=== PATIENT | female | born 1955 | race Caucasian/White ===

== ENCOUNTER → 2018-06-17 | Outpatient (CLI) | payer MEDICARE ==
[~2018-06-17] MED LIST: REGADENOSON 0.4 MG/5 ML SYRINGE IV ONE
--- NOTE | 2018-06-17 10:37 | EST ---
EXERCISE STRESS DATE OF SERVICE: 06/17/2018 AGE: 62 SEX: Female HT: 5'1" WT: 193 pounds PROTOCOL: Lexiscan Cardiolite STAGE: DURATION OF EXERCISE: HEART RATE REST: 52 BLOOD PRESSURE REST: 124/94 MAXIMUM HEART RATE ACHIEVED: 68 MAXIMUM BLOOD PRESSURE: 145/65 85% MPHR: 134 100% MPHR: 158 METS: INDICATION: Abnormal EKG. CLINICAL INFORMATION: Baseline EKG shows sinus rhythm, normal axis, normal intervals. Patient was given intravenous Lexiscan as per protocol. Did not have chest pain or diagnostic ST-segment depression. CONCLUSIONS: 1. Negative stress test by EKG criteria. 2. Cardiolite portion of the stress test will be reported separately. MMODL / IJN: [id number] /
--- NOTE | 2018-06-17 10:50 | NM ---
EXAMINATION TYPE: NM stress lexiscan cardiolite DATE OF EXAM: 06/17/2018 COMPARISON: NONE HISTORY: Coronary artery disease per order. History of hypertension, asthma, family history of heart attack, and prior heart attack presents with difficulty breathing and abnormal EKG per patient. TECHNIQUE: After the intravenous administration of 9.8 mCi Tc 99m Sestamibi - Cardiolite resting SPE CT images acquired 45 minutes post injection. The patient received 0.4mg Lexiscan, 25.5 mCi Tc 99m Sestamibi - Stress images obtained [address] injection FINDINGS: Review of stress and rest SPECT images demonstrates no distinct perfusion abnormality. Gated analysi s shows normal wall motion with an estimated left ventricular ejection fraction of 68 %. IMPRESSION: No scintigraphic evidence for reversible ischemia.
== END | disposition home or self-care (01) ==
LOC: RADNMMAIN 07:42
PROVIDERS: ATTEND Family Medicine
DX: I25.10 Atherosclerotic heart disease of native coronary artery without angina pectoris (principal)
CPT/HCPCS: 93017; 78452; A9500; J2785

== ENCOUNTER → 2019-01-30 | Outpatient (CLI) | payer MEDICARE ==
--- NOTE | 2019-01-30 11:55 | BD ---
EXAMINATION TYPE: Axial Bone Density DATE OF EXAM: 01/30/2019 COMPARISON: NONE CLINICAL HISTORY: 63 YR OLD FEMALE....ICD-10 CODE: M89.9 DISORDER OF BONE Height: 60.4 Weight: 193 FRAX RISK QUESTIONS: Glucocorticoids (More than 3mos): YES (Ex: prednisone, prednisolone, methylprednisolone, dexamethasone, and hydrocortisone). Rheumatoid Arthritis: YES RISK FACTORS HISTORY OF: HX OF ANKLE FX A TEEN Family History of Osteoporosis: UNKNOWN Active: NO...BILAT TOTAL KNEE REPLACEMENTS, USES CANE Postmenopausal woman: YES AT AGE 53 Lost more than 2 inches in height since high school: YES Frequent falls: UNSTEADY, USES CANE MEDICATIONS: Prednisone or other steroids: INHALER ALBUTEROL PRN, STEROIDS ON AND OFF FOR LUNGS AND ALLERGIES How Long: MANY YRS Thyroid Medications: YES, GENERIC SYNTHROID, FOR 20+ YRS Additional Medications: BP MEDS, ANTIDEPRESSANTS AND ANTI-ANXIETY MEDS SEVERAL, REFLUX MEDS NEEDED , VIT D, PAIN MEDS AND NSAIDS Additional History: BILAT TKRS, OSTEO AND RHEUMATOID ARTHRITIS, HYPERTENSION, REFLUX, ASTHMA AND ALL ERGIES EXAM MEASUREMENTS: Bone mineral densitometry was performed using the Unsilo System. Bone mineral density as measured about the Lumbar spine is: ----- L1-L4(G/cm2): 1.597 T Score Values are as follows: ----- L1: 2.6 ----- L2: 3.4 ----- L3: 4.4 ----- L4: 3.2 ----- L1-L4: 3.5 Bone mineral density THIS IS HER FIRST BONE DENSITY ......BASELINE STUDY Bone mineral density about the R hip (g/cm2): 0.938 Bone mineral density about the L hip (g/cm2): 0.830 T Score values are as follows: -----R Neck: -0.6 -----L Neck: -1.9 -----R Total: -0.6 -----L Total: -1.4 Bone mineral density BASELINE STUDY FOR HER FRAX%s: THERE IS A 18.3% CHANCE FOR A MAJOR OSTEOPOROTIC FX AND A 2.8% FOR HIP....PROBABILITY OF FX IN 10 YRS TIME IMPRESSION: Osteopenia (T Score between -2.5 and -1) at femoral neck level in both hips. There is slightly increased risk of fracture and the patient may be considered for treatment. Re-Screen 2-5 years. NOTE: T-SCORE=SD OF THE YOUNG ADULT MEAN.
--- NOTE | 2019-02-05 13:20 | MM ---
Reason for exam: screening (asymptomatic). Last mammogram was performed 1 year and 2 months ago. History: Patient is postmenopausal. Family history of breast cancer in mother at age 69. Breast lifts of both breasts, 2011. Took estrogen for 1 year beginning at age 61. Physical Findings: A clinical breast exam by your physician is recommended on an annual basis and results should be correlated with mammographic findings. MG 3D Screening Mammo W/Cad Bilateral CC and MLO view(s) were taken. Prior study comparison: November 29, 2017, mammogram, performed at [place]. The breast tissue is heterogeneously dense. This may lower the sensitivity of mammography. There is no discrete abnormality. No significant changes when compared with prior studies. ASSESSMENT: Benign, BI-RAD 2 RECOMMENDATION: Routine screening mammogram of both breasts in 1 year.
== END | disposition home or self-care (01) ==
LOC: RADMAMWWP 09:53
PROVIDERS: ATTEND Family Medicine
DX: Z12.31 Encounter for screening mammogram for malignant neoplasm of breast (principal); M85.852 Other specified disorders of bone density and structure, left thigh; Z80.3 Family history of malignant neoplasm of breast
CPT/HCPCS: 77063; 77067; 77080

== ENCOUNTER 2019-10-09 16:54 | Emergency (ER) | payer MEDICARE ==
[2019-10-09 17:01] VITALS: RESP 18
--- NOTE | 2019-10-09 17:08 | ED ---
Back Pain HPI - General Chief Complaint: Back Pain/Injury Stated Complaint: back/leg pain Time Seen by Provider: 10/09/19 17:04 Source: patient, RN notes reviewed, old records reviewed Limitations: no limitations - History of Present Illness Initial Comments: This is a 63-year-old female the ER for evaluation. Patient presents today for evaluation regards to back pain history of back pain history of spinal stenosis MD Complaint: back pain -: days(s) Similar Symptoms Previously: Yes Place: home Radiation: none Severity: moderate Severity scale (1-10): 4 Quality: sharp, aching Consistency: constant Improves With: immobilization Worsens With: movement, sitting upright, walking Context: unknown Associated Symptoms: denies other symptoms - Related Data Allergies Allergy/AdvReac Type Severity Reaction Status Date / Time Penicillins Allergy Unknown Verified 10/09/19 16:56 Review of Systems ROS Statement: Those systems with pertinent positive or pertinent negative responses have been documented in the HPI. ROS Other: All systems not noted in ROS Statement are negative. Past Medical History Past Medical History: Diabetes Mellitus, Hyperlipidemia, Hypertension, Thyroid Disorder Additional Past Medical History / Comment(s): MIGRAINES History of Any Multi-Drug Resistant Organisms: None Reported Past Surgical History: Bariatric Surgery Additional Past Surgical History / Comment(s): GASTRIC BYPASS 2005 Past Psychological History: Anxiety, Depression Smoking Status: Former smoker Past Alcohol Use History: None Reported Past Drug Use History: None Reported General Exam Limitations: no limitations General appearance: alert, in no apparent distress Head exam: Present: atraumatic, normocephalic, normal inspection Eye exam: Present: normal appearance, PERRL, EOMI. Absent: scleral icterus, conjunctival injection, periorbital swelling ENT exam: Present: normal exam, mucous membranes moist Neck exam: Present: normal inspection. Absent: tenderness, meningismus, lymphadenopathy Respiratory exam: Present: normal lung sounds bilaterally. Absent: respiratory distress, wheezes, rales, rhonchi, stridor Cardiovascular Exam: Present: regular rate, normal rhythm, normal heart sounds. Absent: systolic murmur, diastolic murmur, rubs, gallop, clicks GI/Abdominal exam: Present: soft, normal bowel sounds. Absent: distended, tenderness, guarding, rebound, rigid Extremities exam: Present: normal inspection, full ROM, normal capillary refill. Absent: tenderness, pedal edema, joint swelling, calf tenderness Back exam: Present: normal inspection Neurological exam: Present: alert, oriented X3, CN II-XII intact Psychiatric exam: Present: normal affect, normal mood Skin exam: Present: warm, dry, intact, normal color. Absent: rash Course Vital Signs 10/09/19 16:56 Temperature 97.9 F Pulse Rate 78 Respiratory 18 Rate Blood Pressure 144/75 O2 Sat by Pulse 96 Oximetry - Reevaluation(s) Reevaluation #1: 10/09/19 20:04 Spoke with patient medical record is reviewed and patient symptoms are improved Reevaluation #2: 10/09/19 20:[address] Le who was requesting consult for anesthesia Reevaluation #3: 10/09/19 20:05 Spoke with the anesthesiologist Dr. Camejo who did evaluate patient in the ER will set up patient for outpatient epidural Medical Decision Making - Medical Decision Making 63 female the ER for evaluation presents today for evaluation regards to back pain acute on chronic back pain. Patient will follow-up for epidural pain is currently controlled and can be discharged home - Radiology Data Radiology results: report reviewed (CT LS spine is negative for traumatic injury or acute disease), image reviewed Disposition Clinical Impression: Spinal stenosis, Sciatica Disposition: HOME SELF-CARE Condition: Good Instructions (If sedation given, give patient instructions): Acute Low Back Pain (ED) Is patient prescribed a controlled substance at d/c from ED?: No Referrals: Tommy Andrade MD [Primary Care Provider] - 1-2 days
[2019-10-09] MEDS ORDERED: HYDROmorphone 1 MG/ML 1 ML SYRINGE IM STA (17:33)
[2019-10-09] MEDS ORDERED: DEXAMETHASONE 4 MG TAB PO STA (17:33)
[2019-10-09] MEDS ORDERED: KETOROLAC 60 MG/2 ML VIAL IM STA (17:33)
--- NOTE | 2019-10-09 18:40 | CT ---
EXAMINATION TYPE: CT lumbar spine wo con DATE OF EXAM: 10/09/2019 6:25 PM COMPARISON: None HISTORY: Right sided lower back pain radiating down right leg. CT DLP: 1430.6 mGycm Automated exposure control for dose reduction was used. Unenhanced CT of the lumbar spine was performed. Bone and soft tissue window settings are submitted as well as coronal and sagittal reconstructions. There is 7 mm anterior subluxation of L4 in relation L5. There is disc space narrowing from L1 to L5. There is no spondylolysis. There is some hypertrophic facet arthropathy from L3 to S1. There is no c ompression fracture. There is no lumbar paraspinal mass. There is posterior concentric disc herniatio n at L2-3 L3-4 with resultant neural foraminal impingement. There is moderate spinal stenosis at L3-4 due to facet arthropathy and posterior disc herniation. There is mild spinal stenosis at L4-5. I see no focal bone destruction. IMPRESSION: Multilevel spondylotic changes. Degenerative first-degree L4-5 spondylolisthesis. There is spinal hao nosis at L3-4 and L4-5. Multilevel posterior lumbar disc herniation.
--- NOTE | 2019-10-09 18:45 | CT ---
EXAMINATION TYPE: CT sacrum wo con DATE OF EXAM: 10/09/2019 COMPARISON: None HISTORY: Right sided lower back pain radiating down right leg. CT DLP: 1207 mGycm Automated exposure control for dose reduction was used. FINDINGS: Sacral segments have normal alignment. Coccyx is intact. I see no fracture. Sacroiliac joints are int act. There is no focal bone destruction. Presacral soft tissues appear normal. There is no pathologic fluid collection. IMPRESSION: NEGATIVE CT SCAN OF THE SACRUM AND COCCYX.
[2019-10-09 20:21] VITALS: BP 156/72; PULSE 62; TEMP 98.2
--- NOTE | 2019-10-09 22:19 | P.PAINCN ---
History of Present Illness - Reason for Consult Consult date: 10/09/19 Back pain Requesting physician: Joaquín Blanco - History of Present Illness 6-year-old female who presents to the [facility] emergency department with chief complaint of low back pain and leg pain in her right. She recently moved to the [facility] in her new primary care physician is Tommy Andrade. She had a history of low back pain has been ongoing for over 5 years. She's had epidural steroid injections in the past last was 3.5 years ago. She had followed up with a spine surgeon who recommended surgery however she decided against it at the time. She was diagnosed with spinal stenosis. On presentation to the ER her pain was at greater than 10 out of 10 in severity. She initially went to her primary care office and was given a shot of IM corticosteroid which did not help. She is given a prescription for Shongaloo to be taken as needed as well as Flexeril to be taken as needed. Pain became unbearable which prompted her to present to the ED. In the emergency department she is given another IM dose of Kenalog. She's sitting comfortably in the chair but does complain of radicular pain into her right buttock and the lateral aspect of her leg. She denies any numbness or tingling in her right lower shoddy digits but does have persistent numbness and tingling in her left lower extremity digits. She denies any bowel or bladder dysfunction, saddle anesthesia. She does promote some weakness in her right lower extremity. Review of Systems Constitutional: Reports weakness Ears, nose, mouth and throat: Reports as per HPI Cardiovascular: Reports as per HPI Respiratory: Reports as per HPI Gastrointestinal: Reports as per HPI Musculoskeletal: Reports as per HPI Neurological: Reports as per HPI Psychiatric: Reports as per HPI Hematologic/Lymphatic: Reports as per HPI Past Medical History Past Medical History: Diabetes Mellitus, Hyperlipidemia, Hypertension, Thyroid Disorder Additional Past Medical History / Comment(s): MIGRAINES History of Any Multi-Drug Resistant Organisms: None Reported Past Surgical History: Bariatric Surgery Additional Past Surgical History / Comment(s): GASTRIC BYPASS 2004 Past Psychological History: Anxiety, Depression Smoking Status: Former smoker Past Alcohol Use History: None Reported Past Drug Use History: None Reported Medications and Allergies Allergies Allergy/AdvReac Type Severity Reaction Status Date / Time Penicillins Allergy Unknown Verified 10/09/19 16:56 Physical Exam Vitals: Vital Signs Temp Pulse Resp BP Pulse Ox 10/09/19 20:20 98.2 F 62 18 156/72 96 10/09/19 16:56 97.9 F 78 18 144/75 96 Intake and Output 10/09/19 10/09/19 10/09/19 06:59 14:59 22:59 Other: Weight 86.183 kg - Constitutional General appearance: obese - EENT Eyes: PERRLA ENT: normal oropharynx - Musculoskeletal 1/2 patellar reflex on right. 4+ quadricep extension on right Musculoskeletal: gait normal, generalized weakness, right sided weakness - Psychiatric Psychiatric: A&O x's 3, appropriate affect, intact judgment & insight Results Comments: CT lumbar spine without contrast: 1. 7 mm anterior subluxation of L4 over L5. 2. Facet arthropathy noted from L3 to S1 bilaterally. 3. Moderate spinal stenosis at L3-L4 secondary to facet arthropathy and a posterior disc herniation. 4. Mild spinal stenosis at L4-5. Assessment and Plan Assessment: Assessment: 1. Lumbar spinal stenosis 2. Lumbar spondylolisthesis L4-L5 3. Facet arthropathy Plan: 1. Patient was given a prescription of Shongaloo and Flexeril from her PCP. She's feeling better after getting her second IM dose of Kenalog. She'll continue the medication as an outpatient. 2. We'll have her scheduled for lumbar epidural steroid injection targeting the right L3-L4 interspace. 3. A prescription for an MRI lumbar spine without contrast was given to the patient to be completed. 4. Referral to orthopedic diabetes solutions specialist for evaluation and surgical recommendations. Thank you for the consult. We'll have the patient scheduled for procedure early next week. PQRS Measure Charge Sheet PQRS Narrative: Smoking Status Former smoker Blood Pressure 156/72 Pain Intensity 2 Pain Scale Used Numeric (1 - 10) Scale Used Numeric (1 - 10)
== END 2019-10-09 20:20 | disposition home or self-care (01) ==
LOC: EC 16:54
DX: M48.061 Spinal stenosis, lumbar region without neurogenic claudication (principal); M54.30 Sciatica, unspecified side; Z87.891 Personal history of nicotine dependence; Z88.0 Allergy status to penicillin
CPT/HCPCS: 72131; 72192; 99284; 96372 ×2; J8540; J1885; J1170

== ENCOUNTER 2019-10-15 09:53 | Day surgery (SDC) | payer MEDICARE ==
[2019-10-15 10:30] VITALS: TEMP 97.2
[2019-10-15] MEDS ORDERED: LACTATED RINGERS 1,000 ML IV SCH (11:04)
--- NOTE | 2019-10-15 11:09 | P.PCN ---
Date of Procedure: 10/15/19 Procedure(s) Performed: PREOPERATIVE DIAGNOSIS: 1- Lumbar radiculopathy, Lumbar Degenerative Disc Diseases 2-Lumbar spondylosis with Facet arthropathy without myelopathy POSTOPERATIVE DIAGNOSIS: 1-Lumber Degenerative Disc Diseases 2-Lumbar spondylosis with Facet arthropathy without myelopathy PROCEDURE 1. Lumbar epidural steroid injection under fluoroscopic guidance at the L3-4 level using a right paramedian approach 2. Lumbar epidurogram. ANESTHESIA: Local with 1% lidocaine 3 ml,no IV sedation was used Fluoroscopy was used for the procedure and images were saved in the radiology portion of the chart. EBL: Minimal PROCEDURE INDICATION: The patient with low back pain and radiculitis symptoms unresponsive to conservative treatment. Fluoroscopy was used to optimize visualization of the needle placement and to maximize safety. PROCEDURE DESCRIPTION / TECHNIQUE: The patient was seen and identified in the preoperative area. Risks, benefits, complications including but not limited to infections ,bleeding ,allergic reaction to the medications ,nerve damage and incomplete pain releif , and alternatives were discussed with the patient. The patient agreed to proceed with the procedure and signed the consent.= Patient was taken to the OR and time out was completed. The patient was placed in the prone position on procedure table and a pillow was placed under the abdomen to reduce lumbar lordosis. The lumbosacral area was prepped and draped in the usual sterile fashion. Vitals were closely monitored during the procedure. Using anterior-posterior fluoroscopy, the L3-4 interlaminar space was identified and the skin over this site was marked and then infiltrated with 1% lidocaine subcutaneously. Subsequently, an 18-gauge 5" Tuohy epidural needle was inserted and advanced toward the epidural space using the loss of resistance technique and guided by AP and lateral/ oblique fluoroscopy. The correct needle position in the epidural space was verified with the injection of 2 mL of the water soluble contrast dye Isovue 200 contrast under live fluoroscopy, observing an excellent epidurogram. Then, after negative aspiration for blood and CSF and in the absence of paresthesias, a 5 ml mixture containing 80 mg of Depo-medrol , 3 ml of preservative free Normal Saline, and 1 ml of preservative free lidocaine 1% solution was injected and a washout epidurogram was seen. Needle was withdrawn intact, skin was cleansed, and bandages were applied. COMPLICATIONS: None DISPOSITION / PLANS: The patient was placed in a supine position and transferred to the recovery area in a stable condition for observation. There was no evidence of lower extremity motor or sensory deficit after the procedure. Patient was discharged from the recovery room after meeting discharge criteria. Home discharge instructions were given to the patient by the staff. The patient will schedule a follow up in the clinic in 2-4 weeks.
[2019-10-15 11:14] VITALS: RESP 18
--- NOTE | 2019-10-15 11:15 | FL ---
EXAMINATION TYPE: FL guided pain mgmt statistic DATE OF EXAM: 10/15/2019 CLINICAL HISTORY: Low back pain. TECHNIQUE: Fluoroscopy. COMPARISON: None. FINDINGS: Fluoroscopic guidance was provided during pain relief procedure performed by Dr. Valencia . A total of 8 seconds of fluoroscopic time was utilized during the procedure and 3 spot images are acqui red. Images acquired shows needle localization at roughly L3 level. IMPRESSION: As Above.
[2019-10-15 11:26] VITALS: BP 127/78; PULSE 66
== END 2019-10-15 11:42 | disposition home or self-care (01) ==
LOC: ORPAIN 09:53
PROVIDERS: ATTEND Anesthesiology
DX: M47.26 Other spondylosis with radiculopathy, lumbar region (principal); M51.16 Intervertebral disc disorders with radiculopathy, lumbar region; M48.061 Spinal stenosis, lumbar region without neurogenic claudication; M43.16 Spondylolisthesis, lumbar region; E11.9 Type 2 diabetes mellitus without complications; E78.5 Hyperlipidemia, unspecified; I10 Essential (primary) hypertension; G43.909 Migraine, unspecified, not intractable, without status migrainosus; F41.9 Anxiety disorder, unspecified; F32.9 Major depressive disorder, single episode, unspecified; Z98.84 Bariatric surgery status; Z88.0 Allergy status to penicillin; Z87.891 Personal history of nicotine dependence
CPT/HCPCS: 62323; J1030; Q9966

== ENCOUNTER → 2019-10-25 | Outpatient (CLI) | payer MEDICARE ==
--- NOTE | 2019-10-27 09:38 | MR ---
EXAMINATION TYPE: MR lumbar spine wo/w con DATE OF EXAM: 10/25/2019 COMPARISON: CT 10/09/2019 HISTORY: lumbar neuritis TECHNIQUE: T1 and T2 axial and sagittal images of the lumbar spine are submitted. FINDINGS: There is no abnormal signal seen within the visualized spinal cord or paraspinal soft tissu es. There is severe degenerative disc disease at all levels with hypertrophic spurring. Large vertebr al body hemangioma of T12. At T12-L1 there is degenerative disc disease. There is no canal stenosis or foraminal encroachment. M ild circumferential disc bulging. At L1-2 there is severe degenerative disc disease with posterior hypertrophic changes. Diffuse circum ferential disc bulging results in mild compression of the thecal sac and mild to moderate bilateral f oraminal encroachment greater on the right and mild canal stenosis. At L2-3 there is diffuse disc bulging with hypertrophic change of the facets and ligamentum flavum re sults in moderate canal stenosis and bilateral foraminal encroachment. At L3-4 there is diffuse disc bulging with hypertrophic change of the facets and ligamentum flavum re sult in moderate to severe canal stenosis and severe left-sided foraminal encroachment and moderate t o severe right foraminal encroachment. At L4-5 there is advanced facet arthropathy with grade 1 anterolisthesis. Broad-based central disc bu lging or protrusion results in severe canal stenosis and bilateral foraminal encroachment. At L5-S1 there is advanced facet arthropathy with circumferential disc bulging but no canal stenosis. Mild to moderate foraminal encroachment. IMPRESSION: 1. Severe degenerative disc disease at all levels with multilevel canal stenosis and significant fora raymond encroachment as discussed above. Most marked findings at L4-L5 with severe canal stenosis, bila teral foraminal encroachment and grade 1 anterolisthesis.
== END | disposition home or self-care (01) ==
LOC: RADMRIMAIN 14:42
PROVIDERS: ATTEND Family Medicine
DX: M48.061 Spinal stenosis, lumbar region without neurogenic claudication (principal); M51.16 Intervertebral disc disorders with radiculopathy, lumbar region; M43.16 Spondylolisthesis, lumbar region
CPT/HCPCS: 72158; A9585

== ENCOUNTER → 2019-12-02 | Outpatient (CLI) | payer MEDICARE ==
[2019-12-02 12:44] VITALS: BP 116/79; PULSE 66; RESP 18
--- NOTE | 2019-12-03 06:08 | P.PAINPG ---
Subjective Progress Note Date: 12/02/19 This is a follow-up visit for this 64 years old female, with a chronic history of severe low back pain patient diagnosed with lumbar radiculopathy lumbar spondylosis and lumbar facet arthropathy and lumbar degenerative disc disease, patient had lumbar epidural steroid injection done a few weeks ago and she had excellent pain relief, now the pain comes back and she is having low back pain with radiation to the lower extremity bilaterally, the pain increases with any activity she denies any motor or sensory deficit, she denies any fever or night sweats Objective - Vital Signs Vital signs: Vital Signs Temp Pulse 66 12/02/19 12:38 Resp 18 12/02/19 12:38 BP 116/79 12/02/19 12:38 Pulse Ox 99 12/02/19 12:38 - Exam Physical Examinations : -Constitutiona : Cooperative , not in acute distress . -HEENT : nech : supple , no Lymphadenopathy , normal thyroid size . : eyes : no ptosis , no icterus, no photophobia . - neurologic : Cranial nerve II to XII intact , no focal neurological deffecit . -psychatric : alert , oriented X 3 , appropriate affect , intact judgment and insight . -Lymphatic : no Lymphadenopathy . - musculoskeltal Lumber spine moter stegnth lower extremities ,thigh and legs 5/5 Right side , 5/5 Left side deep tendon reflexes : normal Knee Jerk , normal ankle Jerk lumber facet Loading Test =positive Right , positive Left Range of motion of the lumbar spine Flexion 30 degrees, extension 10 degrees strait leg raising test = positive at 30 degree Fabere test= positive Right , and positive LT .t . Assessment and Plan Plan: Assessment and plan= lumbar radiculopathy. Lumbar degenerative disc disease. Lumbar spondylosis with lumbar facet arthropathy. She'll be good candidate to have second lumbar epidural steroid injections at the L3 4 levels Time with Patient: Less than 30 PQRS Measure Charge Sheet Measure #130: Documentation of Current Meds in Medical Chart: Patient's medications documented in chart Measure #226: Tobacco Use: Screen & Cessation Intervention: Pt not a tobacco user Measure #111: Pneumonia Vaccination: Pneumococcal vaccine administered or previously received Measure #47: Advance Care Plan: Advance care planning discussed & documented, plan or surrogate given Measure #412: Opioid Treatment Agreement: No documentation of signed opioid treatment agreement Measure #408: Opioid Therapy Follow-up Evaluation: Patient had NO f/u eval minimum every 3 months during opioid therapy Measure #317: Preventitive Care & Scrn High Bld Press & F/U: Normal blood pressure, f/u not required Measure #128: Body Mass Index (BMI) Screening & Follow-up: BMI documented ABOVE normal parameters - f/u documented Measure #131: Pain Assessment & Follow-up: Pain positive & plan documented, Follow-up scheduled Measure #431: Unhealthy Alcohol Use Preventative Care & Scrn: Patient not identified as an unhealthy alcohol user PQRS Narrative: Smoking Status Former smoker Blood Pressure 116/79 Pain Intensity [Left Leg] 2 Pain Intensity [Lower Back] 3 Scale Used Numeric (1 - 10) Hx Alcohol Use (MH) No Home Medications: Ambulatory Orders ALPRAZolam [Xanax] 0.5 mg PO DAILY PRN 10/15/19 Aspirin 81 mg PO DAILY 10/15/19 Atenolol 25 mg PO BID 10/15/19 DULoxetine HCL [Cymbalta] 60 mg PO DAILY 10/15/19 Furosemide [Lasix] 20 mg PO DAILY 10/15/19 Gabapentin 600 mg PO BID 10/15/19 Ibuprofen [Motrin] 600 mg PO BID 10/15/19 Levothyroxine Sodium 150 mcg PO DAILY 10/15/19 Topiramate [Topamax] 25 mg PO DAILY 10/15/19 buPROPion [Wellbutrin] 300 mg PO DAILY 10/15/19 Acetaminophen-Codeine 300-30mg [Tylenol w/codeine #3] 1 tab PO TID 11/26/19 Albuterol Inhaler [Ventolin Hfa Inhaler] 1 - 2 puff INHALATION RT-Q6H PRN 11/26/19 Controlled Substance Measures - Controlled Substance Measures Is patient prescribed a controlled substance at discharge?: No
== END ==
LOC: PNWHC3 12:19
PROVIDERS: ATTEND Specialist
DX: M51.16 Intervertebral disc disorders with radiculopathy, lumbar region (principal); M47.26 Other spondylosis with radiculopathy, lumbar region; M46.96 Unspecified inflammatory spondylopathy, lumbar region; Z87.891 Personal history of nicotine dependence; Z79.899 Other long term (current) drug therapy; Z79.82 Long term (current) use of aspirin; Z79.1 Long term (current) use of non-steroidal anti-inflammatories (NSAID)
CPT/HCPCS: 99211

== ENCOUNTER 2019-12-16 09:16 | Day surgery (SDC) | payer MEDICARE ==
[2019-12-12 10:32] VITALS: BMI 40.6
[~2019-12-16 09:16] MED LIST changes: +IOPAMIDOL M200 10 ML VIAL ONE; +LACTATED RINGERS 1,000 ML IV SCH; +MIDAZOLAM 2 MG/2 ML VIAL ONE; -REGADENOSON 0.4 MG/5 ML SYRINGE IV ONE; +fentaNYL (PF) 50 MCG/ML 2 ML AMP ONE; +methylPREDNISolone ACETATE 80 MG/ML 1 ML VIAL ONE
[2019-12-16 10:12] VITALS: RESP 16; TEMP 98.4
[2019-12-16 10:18] LABS: Glucose,Whole Blood 99 mg/dL (75-99)
[2019-12-16] MEDS ORDERED: LIDOCAINE 1% 20 ML VIAL (10MG/ML) FOR IV START INTRADERMA ONE (10:18)
[2019-12-16] MEDS ORDERED: IV FLUID CONTINUATION 1,000 ML IV ONE (11:17)
[2019-12-16 11:19] VITALS: PULSE 64
[2019-12-16 11:32] VITALS: BP 111/66
--- NOTE | 2019-12-16 12:06 | P.PCN ---
Date of Procedure: 12/16/19 Procedure(s) Performed: PREOPERATIVE DIAGNOSIS: 1- Lumbar radiculopathy, Lumbar Degenerative Disc Diseases 2-Lumbar spondylosis with Facet arthropathy without myelopathy POSTOPERATIVE DIAGNOSIS: 1-Lumber Degenerative Disc Diseases 2-Lumbar spondylosis with Facet arthropathy without myelopathy PROCEDURE 1. Lumbar epidural steroid injection under fluoroscopic guidance at the L3-4 level using a right paramedian approach 2. Lumbar epidurogram. ANESTHESIA: Local with 1% lidocaine 3 ml, moderate sedation with intravenous Versed and fentanyl, sedation time 9 minutes Fluoroscopy was used for the procedure and images were saved in the radiology portion of the chart. EBL: Minimal PROCEDURE INDICATION: The patient with low back pain and radiculitis symptoms unresponsive to conservative treatment. Fluoroscopy was used to optimize visualization of the needle placement and to maximize safety. PROCEDURE DESCRIPTION / TECHNIQUE: The patient was seen and identified in the preoperative area. Risks, benefits, complications including but not limited to infections ,bleeding ,allergic reaction to the medications ,nerve damage and incomplete pain releif , and alternatives were discussed with the patient. The patient agreed to proceed with the procedure and signed the consent. IV was started, and vital signs were stable. Patient was taken to the OR and time out was completed. The patient was placed in the prone position on procedure table and a pillow was placed under the abdomen to reduce lumbar lordosis. The lumbosacral area was prepped and draped in the usual sterile fashion. Vitals were closely monitored during the procedure. Conscious sedation was used during the procedure to decrease patients anxiety. Using anterior-posterior fluoroscopy, the L3-4 interlaminar space was identified and the skin over this site was marked and then infiltrated with 1% lidocaine subcutaneously. Subsequently, a 20-gauge 3.5" Tuohy epidural needle was inserted and advanced toward the epidural space using the loss of resistance technique and guided by AP and lateral/ oblique fluoroscopy. The correct needle position in the epidural space was verified with the injection of 2 mL of the water soluble contrast dye Isovue 200 contrast under live fluoroscopy, observing an excellent epidurogram. Then, after negative aspiration for blood and CSF and in the absence of paresthesias, a 5 ml mixture containing 80 mg of Depo-medrol , 3 ml of preservative free Normal Saline, and 1 ml of preservative free lidocaine 1% solution was injected and a washout epidurogram was seen. Needle was withdrawn intact, skin was cleansed, and bandages were applied. COMPLICATIONS: None DISPOSITION / PLANS: The patient was placed in a supine position and transferred to the recovery area in a stable condition for observation. There was no evidence of lower extremity motor or sensory deficit after the procedure. Patient was discharged from the recovery room after meeting discharge criteria. Home discharge instructions were given to the patient by the staff. The patient will schedule a follow up in the clinic in 2-4 weeks.
--- NOTE | 2019-12-16 13:36 | FL ---
EXAMINATION TYPE: FL guided pain mgmt statistic DATE OF EXAM: 12/16/2019 CLINICAL HISTORY: Low back pain. TECHNIQUE: Fluoroscopy. COMPARISON: None. FINDINGS: Fluoroscopic guidance was provided during pain relief procedure performed by Dr. Valencia . A total of 4 seconds of fluoroscopic time was utilized during the procedure and 3 spot images are acqui red. Images acquired shows needle localization at L4 level from posterior approach. IMPRESSION: As Above.
== END 2019-12-16 12:08 | disposition home or self-care (01) ==
LOC: ORPAIN 09:16
PROVIDERS: ATTEND Anesthesiology
DX: G89.29 Other chronic pain (principal); M47.26 Other spondylosis with radiculopathy, lumbar region; M51.06 Intervertebral disc disorders with myelopathy, lumbar region; M51.16 Intervertebral disc disorders with radiculopathy, lumbar region; Z87.891 Personal history of nicotine dependence; Z79.82 Long term (current) use of aspirin; Z79.1 Long term (current) use of non-steroidal anti-inflammatories (NSAID); Z79.890 Hormone replacement therapy; Z79.899 Other long term (current) drug therapy
CPT/HCPCS: 62323; J2250; J1040; J3010; Q9966

== ENCOUNTER → 2020-01-07 | Outpatient (CLI) | payer MEDICARE ==
[2020-01-07 14:24] VITALS: BP 104/69; PULSE 62; RESP 16
--- NOTE | 2020-01-07 14:35 | P.PAINPG ---
Subjective Progress Note Date: 01/07/20 Lenore is a 64-year-old female presents today for follow-up for low back pain with radicular symptoms. She had a lumbar epidural steroid injection at the L3- L4 level completed. She reports the first injection helped for about 4 days but the second injection did not help at all. She still complaining of low back pain with some pain in her right hip as well as in the left hip. She has pain associated with standing or walking for long periods of time. She denies any significant lower extremity weakness. She has pain when standing up from a seated position. Even at rest she reports a 3 out of 10 VAS which she reports is tolerable for her but the pain with activities much worse. She denies any chest pain shortness of breath syncope, irregular heartbeat, nausea or vomiting, diarrhea or constipation. She denies any vision or hearing changes. Objective - Exam General: Awake and alert oriented 3 no distress Respiratory exam: No audible wheezing no accessory muscle usage Cardiovascular exam: regular rate, palpable bilateral pulses, no lower extremity edema Abdominal exam: No distention nontender to palpation Cervical spine: Normal alignment, Spurling's negative, facet loading negative, Sample Coordinator strength is 5/5, duarte negative Lumbar spine: Loss of lumbar lordosis, normal alignment, tender to palpation over bilateral paraspinal muscles, facet loading is positive bilaterally. Straight leg raise is negative. Limited range of motion due to pain with flexion, extension and side bending. Sacroiliac joints: She has tenderness to palpation over the bilateral SI joints. Augusta's test positive bilaterally. Gaenslen's test is positive bilaterally. Neuro exam: Normal sensation in bilateral upper extremities, deep tendon reflexes are 2+ bilateral upper extremities. Normal sensation in bilateral lower extremities. Deep tendon reflexes are absent at patellar tendons due to bilateral knee replacement, Achilles reflexes are 1+ bilaterally Psych exam: Cooperative, appropriate mood Assessment and Plan Assessment: #1 lumbar radiculopathy #2 sacroiliitis #3 lumbar spinal stenosis Plan: After examination the patient and discussion with her regarding the 2 procedures she's had done. I believe the summer pain is likely coming from the sacroiliac joint as well. We discussed that this may be a cause for some of the pain essentially all of her pain. Since she had poor results from the epidural steroid injection with discussed doing sacroiliac joint injections with arthrogram. Patient would like to move forward with that. We'll schedule her to have that done as soon as possible. We have discussed the risks, benefits, and alternatives to the procedure in detail in the office. PQRS Measure Charge Sheet Measure #130: Documentation of Current Meds in Medical Chart: Patient's medications documented in chart Measure #226: Tobacco Use: Screen & Cessation Intervention: Pt not a tobacco user Measure #47: Advance Care Plan: Advance care planning discussed & documented, pt chose/unable to give Measure #412: Opioid Treatment Agreement: No documentation of signed opioid treatment agreement Measure #317: Preventitive Care & Scrn High Bld Press & F/U: Normal blood pressure, f/u not required Measure #128: Body Mass Index (BMI) Screening & Follow-up: BMI documented ABOVE normal parameters - f/u documented Measure #131: Pain Assessment & Follow-up: Pain positive & plan documented Measure #431: Unhealthy Alcohol Use Preventative Care & Scrn: Patient not identified as an unhealthy alcohol user PQRS Narrative: Smoking Status Former smoker Pain Intensity [Lower Back] 3 Scale Used Numeric (1 - 10) Hx Alcohol Use (MH) Yes: RARE Home Medications: Ambulatory Orders ALPRAZolam [Xanax] 0.5 mg PO DAILY PRN 10/15/19 Aspirin 81 mg PO DAILY 10/15/19 Atenolol 25 mg PO BID 10/15/19 DULoxetine HCL [Cymbalta] 60 mg PO DAILY 10/15/19 Furosemide [Lasix] 20 mg PO DAILY 10/15/19 Gabapentin 600 mg PO BID 10/15/19 Ibuprofen [Motrin] 600 mg PO BID PRN 10/15/19 Levothyroxine Sodium 150 mcg PO DAILY 10/15/19 Topiramate [Topamax] 25 mg PO DAILY 10/15/19 buPROPion [Wellbutrin] 300 mg PO DAILY 10/15/19 Acetaminophen-Codeine 300-30mg [Tylenol w/codeine #3] 1 tab PO TID PRN 11/26/19 Albuterol Inhaler [Ventolin Hfa Inhaler] 1 - 2 puff INHALATION RT-Q6H PRN 11/26/19 Phentermine HCl 37.5 mg PO DAILY 12/12/19 Promethazine [Phenergan] 37.5 mg PO DAILY 12/16/19 Controlled Substance Measures - Controlled Substance Measures Is patient prescribed a controlled substance at discharge?: No
== END | disposition home or self-care (01) ==
LOC: PNWHC3 14:10
PROVIDERS: ATTEND Hospitalist
DX: M48.061 Spinal stenosis, lumbar region without neurogenic claudication (principal); M54.16 Radiculopathy, lumbar region; M46.1 Sacroiliitis, not elsewhere classified; Z87.891 Personal history of nicotine dependence; Z79.82 Long term (current) use of aspirin; Z79.899 Other long term (current) drug therapy; Z79.1 Long term (current) use of non-steroidal anti-inflammatories (NSAID); Z79.890 Hormone replacement therapy; Z79.891 Long term (current) use of opiate analgesic
CPT/HCPCS: 99211

== ENCOUNTER 2020-01-19 10:03 | Day surgery (SDC) | payer MEDICARE ==
[2020-01-15 11:46] VITALS: BMI 38.8
[~2020-01-19 10:03] MED LIST changes: -IOPAMIDOL M200 10 ML VIAL ONE; -MIDAZOLAM 2 MG/2 ML VIAL ONE; -fentaNYL (PF) 50 MCG/ML 2 ML AMP ONE; -methylPREDNISolone ACETATE 80 MG/ML 1 ML VIAL ONE
[2020-01-19 10:27] VITALS: TEMP 98.6
[2020-01-19 10:29] LABS: Glucose,Whole Blood 118 mg/dL (75-99)
[2020-01-19] MEDS ORDERED: ROPIVACAINE 5MG/ML 20ML VIAL ONE (10:34)
[2020-01-19] MEDS ORDERED: MIDAZOLAM 2 MG/2 ML VIAL ONE (10:34)
[2020-01-19] MEDS ORDERED: fentaNYL (PF) 50 MCG/ML 2 ML AMP ONE (10:34)
[2020-01-19] MEDS ORDERED: TRIAMCINOLONE ACETONIDE 40 MG/ML 1 ML VIAL ONE (10:34)
[2020-01-19] MEDS ORDERED: IOPAMIDOL M200 10 ML VIAL ONE (10:34)
--- NOTE | 2020-01-19 10:52 | P.PCN ---
Date of Procedure: 01/19/20 Procedure(s) Performed: Preoperative diagnoses: bilateral sacroilitis Postoperative diagnoses: bilateral sacroilitis. Procedure: bilateral sacroiliac joint steroid injection under fluoroscopic guidance. Surgeon: Deondre Valencia MD Anesthesia: [2 mL of 1% lidocaine and moderate sedation per hospital guidelines], sedation time 13 minutes Fluoroscopy was used for the procedure and fluoroscopic images were saved to the radiology portion of the patient's chart. EBL: None Procedure indication: The patient had a history of severe chronic low back pain, diagnosed with sacroiliitis unresponsive to conservative treatment. Procedure description: The patient was seen and identified in the preoperative holding area, risks and benefits and alternative of the procedure and possible complications discussed with the patient, and patient agreed with the preceding, patient signed the consent, an IV was started, and vital signs were monitored and were stable throughout the procedure, patient was placed in the prone position on table and the lumbosacral area was prepped and draped with a sterile fashion, vital signs were closely monitored during the procedure, the fluoroscopy camera was placed in the contralateral oblique view on the bilateral sacroiliac joint and the lower part of the joint was identified . Then the skin and subcutaneous tissue was anesthetized using 2 mL of 1% lidocaine then a 22- gauge Quincke-type spinal needle advanced slowly under fluoroscopy and placed in the posterior and inferior border of the right sacroiliac joint, placement confirmed with AP and lateral view, and after appropriate needle placement confirmed and after negative aspiration for heme, 1 mL of Isovue 200 was injected revealing intra-articular spread. Then a solution consisting of 2 ml of ropivacaine 0.5% and 40 mg of Kenalog injected after negative aspiration, no paresthesia during the injection, no resistance to injection, and the needle was removed. The procedure was then repeated on the left side. Total of 80 mg of Kenalog was used for the procedure. Patient tolerated the procedure well without any complication. The patient was returned to supine position after the back was cleaned and a Band-Aid applied, the patient was transported to recovery room in stable condition and monitored for 30 minutes before being discharged home. The patient will follow up with the pain clinic in a few weeks
[2020-01-19] MEDS ORDERED: IV FLUID CONTINUATION 600 ML IV ONE (10:57)
[2020-01-19 11:03] VITALS: RESP 18
--- NOTE | 2020-01-19 11:03 | FL ---
EXAMINATION TYPE: FL guided pain mgmt statistic DATE OF EXAM: 01/19/2020 CLINICAL HISTORY: Low back pain. TECHNIQUE: Fluoroscopy. COMPARISON: None. FINDINGS: Fluoroscopic guidance was provided during pain relief procedure performed by Dr. Valencia . A total of 8 seconds of fluoroscopic time was utilized during the procedure and 5 spot images are acqui red. Images acquired shows needle localization over the sacrum. IMPRESSION: As Above.
[2020-01-19 11:24] VITALS: BP 104/63; PULSE 70
== END 2020-01-19 11:35 | disposition home or self-care (01) ==
LOC: ORPAIN 10:03
PROVIDERS: ATTEND Anesthesiology
DX: G89.29 Other chronic pain (principal); M46.1 Sacroiliitis, not elsewhere classified; E11.9 Type 2 diabetes mellitus without complications; Z88.0 Allergy status to penicillin; Z88.8 Allergy status to other drugs, medicaments and biological substances; Z78.0 Asymptomatic menopausal state
CPT/HCPCS: J2250; J3301; J3010; Q9966; J2795; G0260; 99152

== ENCOUNTER → 2020-04-16 | Outpatient (CLI) | payer MEDICARE | END | disposition home or self-care (01) | LOC: LABWHC1 13:56 | PROVIDERS: ATTEND Family Medicine | DX: Z11.59 Encounter for screening for other viral diseases (principal) ==

== ENCOUNTER 2020-04-20 08:24 | Day surgery (SDC) | payer MEDICARE ==
[2020-04-19 13:07] VITALS: BMI 34.7
[2020-04-20 09:08] VITALS: TEMP 97
[2020-04-20 09:14] LABS: Glucose,Whole Blood 99 mg/dL (75-99)
[2020-04-20] MEDS ORDERED: BUPIVACAINE (PF) 0.5% 30 ML VIAL ONE (09:16)
[2020-04-20] MEDS ORDERED: MIDAZOLAM 2 MG/2 ML VIAL ONE (09:16)
[2020-04-20] MEDS ORDERED: fentaNYL (PF) 50 MCG/ML 2 ML AMP ONE (09:16)
[2020-04-20] MEDS ORDERED: methylPREDNISolone ACETATE 40 MG/ML 1 ML VIAL ONE (09:16)
[2020-04-20] MEDS ORDERED: IOPAMIDOL M200 10 ML VIAL ONE (09:16)
--- NOTE | 2020-04-20 09:24 | P.PCN ---
Date of Procedure: 04/20/20 Description of Procedure: Procedure: Sacroiliac joint injection bilateral Preoperative diagnosis: Sacroiliitis Postoperative diagnosis: Sacroiliitis Imaging: Fluoroscopy was used, images where saved to the medical record Complications: none Anesthesia: 1% lidocaine 5cc + 1mg versed and 50mcg fentanyl Description of the procedure: procedure risk and benefits discussed with the patient, including but not limited, risk of infection and bleeding, and allergic reaction to the medication and incomplete pain relief. Patient agreed and signed consent. Patient was taken to the room and placed in a prone position. Chlorhexidine was used to cleanse the skin. Under sterile conditions patient skin was anesthetized 1% lidocaine. Subcutaneous tissues were also anesthetized with a total 5 mL of 1% lidocaine. After that, a 22-gauge spinal needle was advanced through the anesthetized location under fluoroscopic guidance. Needle was advanced into the inferior portion of the sacroiliac joint. IV contrast was used to confirm spread within the joint. After adequate spread was achieved, 2.5 ML's of 0.5% ropivacaine with 40 mg of triamcinolone was injected into the joint. Patient tolerated the procedure well. Sent to the recovery room in stable condition. Patient will follow up as directed.
[2020-04-20] MEDS ORDERED: IV FLUID CONTINUATION 1,000 ML IV ONE (09:34)
[2020-04-20 09:56] VITALS: BP 130/70; PULSE 88; RESP 18
--- NOTE | 2020-04-20 10:21 | FL ---
EXAMINATION TYPE: FL guided pain mgmt statistic DATE OF EXAM: 04/20/2020 CLINICAL HISTORY: Sacroiliac joint pain. TECHNIQUE: Fluoroscopy. COMPARISON: None. FINDINGS: Fluoroscopic guidance was provided during pain relief procedure performed by Dr. Chavira . A total of 5 seconds of fluoroscopic time was utilized during the procedure and two spot images are acquired. Images acquired shows needle localization of the bilateral sacroiliac joints. IMPRESSION: As Above.
== END 2020-04-20 10:19 | disposition home or self-care (01) ==
LOC: ORPAIN 08:24
PROVIDERS: ATTEND Hospitalist
DX: M46.1 Sacroiliitis, not elsewhere classified (principal); Z88.8 Allergy status to other drugs, medicaments and biological substances; Z88.0 Allergy status to penicillin
CPT/HCPCS: J2250; J1030; J3010; Q9966; G0260; 99152

== ENCOUNTER → 2020-06-16 | Outpatient (CLI) | payer MEDICARE ==
[2020-06-16 08:54] VITALS: BP 143/76; PULSE 57; RESP 20; TEMP 98.6
--- NOTE | 2020-06-16 09:25 | P.PAINPG ---
Subjective Progress Note Date: 06/16/20 64-year-old female who has a history of low back pain has been ongoing for over 5 years. She has been diagnosed with lumbar spinal stenosis, lumbar facet arthropathy, lumbar degenerative disc disease, bilateral sacroiliitis. She underwent bilateral SI joint injections on 01/19/2020 and 04/20/2020. She returns today for follow-up. She reports excellent relief from this procedure, lasting approximately 2 months. Her pain today is located in the bilateral lower back primarily buttock region, greater on the right side. Rated as 4- 5/10, pain does not radiate. Pain is worse with activity and better with ice, heat, inactivity and lying down. Her current medications include Woodward 5/325she is only taken one tablet of this since the procedure. She also takes gabapentin 600 mg twice a day and Motrin 600 mg twice a day. She denies side effects from the medications, they are helping control her pain. She fell on 05/14/2020 and since then her pain has gotten worse. Review of systems is negative for chest pain, shortness of breath, new onset weakness, numbness/tingling, abdominal pain, malaise, fever, night sweats, chills, homicidal or suicidal ideation, or bowel or bladder incontinence. Physical Exam Physical exam: Vitals: Reviewed in EMR GENERAL: Well appearing, in no acute distress PSYCH: Mood and affect is appropriate. Awake, alert, and oriented SKIN: Skin color, texture, turgor normal, no rashes or lesions HEENT: Normocephalic, atraumatic. EOM intact CV: No pedal edema RESP: Respirations are unlabored, no audible wheezing GI: Abdomen non-distended MUSCULOSKELETAL: Bilateral lower extremity strength is normal and symmetric. No atrophy or tone abnormalities are noted. Lumbar spine: Straight leg raising in the sitting position is negative for radicular pain. No pain to palpation over the lumbar spine and paraspinous muscles. Positive for pain with facet loading and back extension/rotation. Buttocks: Tenderness to palpation over the bilateral PSIS, right greater than left, Augusta test is negative bilaterally, Gaenslen's test is positive bilat erally, Mora's test is positive bilaterally, sacral thrust is positive bilaterally Extremities: Peripheral joint ROM is full and pain free without obvious instability or laxity in all four extremities. No edema or skin discolorations noted. Gait: Gait is normal NEUR: Bilateral lower extremity coordination and muscle stretch reflexes are physiologic and symmetric. No loss of sensation is noted. Results Comments: CT lumbar spine without contrast: 1. 7 mm anterior subluxation of L4 over L5. 2. Facet arthropathy noted from L3 to S1 bilaterally. 3. Moderate spinal stenosis at L3-L4 secondary to facet arthropathy and a posterior disc herniation. 4. Mild spinal stenosis at L4-5. Assessment and Plan Assessment: Assessment: 1. Lumbar spinal stenosis 2. Lumbar spondylolisthesis L4-L5 3. Facet arthropathy 4. Bilateral sacroiliitis Plan: 1. We'll have her scheduled for repeat bilateral SI joint injection 2. Medication management per primary care physician 3. Follow-up: For above-mentioned procedure Objective - Vital Signs Vital signs: Intake & Output 06/14/20 06/15/20 06/15/20 18:59 06:59 18:59 Weight 82.554 kg PQRS Measure Charge Sheet Measure #130: Documentation of Current Meds in Medical Chart: Patient's medications documented in chart Measure #226: Tobacco Use: Screen & Cessation Intervention: Pt not a tobacco user Measure #111: Pneumonia Vaccination: Pneumococcal vaccine NOT administered or previously given Measure #47: Advance Care Plan: Advance care planning discussed & documented, pt chose/unable to give Measure #412: Opioid Treatment Agreement: No documentation of signed opioid treatment agreement Measure #408: Opioid Therapy Follow-up Evaluation: Patient had NO f/u eval minimum every 3 months during opioid therapy Measure #317: Preventitive Care & Scrn High Bld Press & F/U: Pre-hypertensive or hypertensive BP documented, pt will f/u with PCP Measure #128: Body Mass Index (BMI) Screening & Follow-up: BMI documented ABOVE normal parameters - f/u documented Measure #131: Pain Assessment & Follow-up: Pain positive & plan documented, Follow-up scheduled Measure #431: Unhealthy Alcohol Use Preventative Care & Scrn: Patient not identified as an unhealthy alcohol user PQRS Narrative: Smoking Status Former smoker Pain Intensity [None] 0 Scale Used Numeric (1 - 10) Hx Alcohol Use (MH) Yes: RARE Home Medications: Ambulatory Orders ALPRAZolam [Xanax] 0.5 mg PO DAILY PRN 10/15/19 Aspirin 81 mg PO DAILY 10/15/19 DULoxetine HCL [Cymbalta] 60 mg PO DAILY 10/15/19 Furosemide [Lasix] 20 mg PO DAILY 10/15/19 Gabapentin 600 mg PO BID 10/15/19 Ibuprofen [Motrin] 600 mg PO BID PRN 10/15/19 Levothyroxine Sodium 150 mcg PO DAILY 10/15/19 Topiramate [Topamax] 25 mg PO DAILY 10/15/19 atenoloL [Atenolol] 25 mg PO BID 10/15/19 buPROPion [Wellbutrin] 300 mg PO DAILY 10/15/19 Albuterol Inhaler (Mhu) [Ventolin Hfa Inhaler] 1 - 2 puff INHALATION RT-Q6H PRN 11/26/19 SUMAtriptan SUCCINATE [Imitrex] 100 mg PO DIRECTED PRN 01/15/20 HYDROcodone/APAP 5-325MG [Woodward 5-325] 1 mg PO Q6HR PRN 04/20/20 Controlled Substance Measures - Controlled Substance Measures Is patient prescribed a controlled substance at discharge?: No
== END | disposition home or self-care (01) ==
LOC: PNWHC3 08:27
PROVIDERS: ATTEND Anesthesiology
DX: G89.29 Other chronic pain (principal); M48.061 Spinal stenosis, lumbar region without neurogenic claudication; M51.36 Other intervertebral disc degeneration, lumbar region; M43.16 Spondylolisthesis, lumbar region; M47.816 Spondylosis without myelopathy or radiculopathy, lumbar region; M46.1 Sacroiliitis, not elsewhere classified; Z87.891 Personal history of nicotine dependence; Z79.82 Long term (current) use of aspirin; Z79.899 Other long term (current) drug therapy
CPT/HCPCS: 99211

== ENCOUNTER 2020-07-06 07:28 | Day surgery (SDC) | payer MEDICARE ==
[2020-07-06 07:49] VITALS: TEMP 97.2
[2020-07-06] MEDS ORDERED: LACTATED RINGERS 1,000 ML IV ONE (07:53)
[2020-07-06 07:56] LABS: Glucose,Whole Blood 96 mg/dL (75-99)
[2020-07-06] MEDS ORDERED: MIDAZOLAM 2 MG/2 ML VIAL ONE (09:11)
[2020-07-06] MEDS ORDERED: ROPIVACAINE 5MG/ML 20ML VIAL ONE (09:11)
[2020-07-06] MEDS ORDERED: fentaNYL (PF) 50 MCG/ML 2 ML AMP ONE (09:11)
[2020-07-06] MEDS ORDERED: TRIAMCINOLONE ACETONIDE 40 MG/ML 1 ML VIAL ONE (09:11)
[2020-07-06] MEDS ORDERED: IOPAMIDOL M200 10 ML VIAL ONE (09:11)
[2020-07-06] MEDS ORDERED: IV FLUID CONTINUATION 800 ML IV ONE ×2 (09:30)
[2020-07-06] MEDS ORDERED: LACTATED RINGERS 1,000 ML IV SCH (09:37)
--- NOTE | 2020-07-06 09:46 | FL ---
EXAMINATION TYPE: FL guided pain mgmt statistic DATE OF EXAM: 07/06/2020 CLINICAL HISTORY: Bilateral sacroiliac joint pain. TECHNIQUE: Fluoroscopy. COMPARISON: None. FINDINGS: Fluoroscopic guidance was provided during pain relief procedure performed by Dr. Díaz . A total of 14 seconds of fluoroscopic time was utilized during the procedure and two spot images are acquired. Images acquired shows needle localization at inferior aspect bilateral sacroiliac joints. IMPRESSION: As Above.
[2020-07-06 10:08] VITALS: BP 114/58; PULSE 61; RESP 18
--- NOTE | 2020-07-06 14:02 | P.PCN ---
Date of Procedure: 07/06/20 Description of Procedure: Preoperative diagnoses: bilateral sacroilitis Postoperative diagnoses: bilateral sacroilitis. Procedure: bilateral sacroiliac joint steroid injection under fluoroscopic guidance. Surgeon: Marcus Díaz MD Anesthesia: [2 mL of 1% lidocaine and moderate sedation per hospital guidelines], sedation time 9 Fluoroscopy was used for the procedure and fluoroscopic images were saved to the radiology portion of the patient's chart. EBL: None Procedure indication: The patient had a history of severe chronic low back pain, diagnosed with sacroiliitis unresponsive to conservative treatment. Procedure description: The patient was seen and identified in the preoperative holding area, risks and benefits and alternative of the procedure and possible complications discussed with the patient, and patient agreed with the preceding, patient signed the consent, an IV was started, and vital signs were monitored and were stable throughout the procedure, patient was placed in the prone position on table and the lumbosacral area was prepped and draped with a sterile fashion, vital signs were closely monitored during the procedure, the fluoroscopy camera was placed in the contralateral oblique view on the bilateral sacroiliac joint and the lower part of the joint was identified . Then the skin and subcutaneous tissue was anesthetized using 2 mL of 1% lidocaine then a 22- gauge Quincke-type spinal needle advanced slowly under fluoroscopy and placed in the posterior and inferior border of the right sacroiliac joint, placement confirmed with AP and lateral view, and after appropriate needle placement confirmed and after negative aspiration for heme, 1 mL of Isovue 200 was injected revealing intra-articular spread. Then a solution consisting of 2 ml of ropivacaine 0.5% and 40 mg of Kenalog injected after negative aspiration, no paresthesia during the injection, no resistance to injection, and the needle was removed. The procedure was then repeated on the left side. Total of 80 mg of Kenalog was used for the procedure. Patient tolerated the procedure well without any complication. The patient was returned to supine position after the back was cleaned and a Band-Aid applied, the patient was transported to recovery room in stable condition and monitored for 30 minutes before being discharged home. The patient will follow up with the pain clinic in a few weeks
== END 2020-07-06 10:15 | disposition home or self-care (01) ==
LOC: ORPAIN 07:28
PROVIDERS: ATTEND Anesthesiology
DX: G89.29 Other chronic pain (principal); M46.1 Sacroiliitis, not elsewhere classified; Z88.0 Allergy status to penicillin; Z88.8 Allergy status to other drugs, medicaments and biological substances
CPT/HCPCS: J2250; J3301; J3010; Q9966; J2795; G0260

== ENCOUNTER → 2020-10-04 | Outpatient (CLI) | payer MEDICARE ==
--- NOTE | 2020-10-04 14:46 | MM ---
Reason for exam: additional evaluation requested from prior study. Last mammogram was performed 1 year and 8 months ago. History: Patient is postmenopausal. Family history of breast cancer in mother at age 69. Breast lifts of both breasts, 2011. Took estrogen for 1 year beginning at age 61. Physical Findings: Nurse did not find any significant physical abnormalities on exam. MG 3D Diag Mammo W/Cad NANCY Bilateral CC and MLO view(s) were taken. Prior study comparison: January 30, 2019, bilateral MG 3d screening mammo w/cad. November 29, 2017, mammogram, performed at [place]. The breast tissue is heterogeneously dense. This may lower the sensitivity of mammography. Benign appearing bilateral calcifications. No significant new findings when compared with previous films. These results were verbally communicated with the patient and result sheet given to the patient on 10/04/20. ASSESSMENT: Benign, BI-RAD 2 RECOMMENDATION: Routine screening mammogram of both breasts in 1 year.
== END | disposition home or self-care (01) ==
LOC: RADMAMWWP 13:56
PROVIDERS: ATTEND Family Medicine
DX: R92.8 Other abnormal and inconclusive findings on diagnostic imaging of breast (principal)
CPT/HCPCS: 77066; G0279; 77062

== ENCOUNTER → 2021-06-14 | Outpatient (CLI) | payer MEDICARE, BC ==
--- NOTE | 2021-06-14 18:30 | CT ---
EXAMINATION TYPE: CT cervical spine wo con DATE OF EXAM: 06/14/2021 COMPARISON: None HISTORY: Migraine and neck pain CT DLP: 565 mGycm CONTRAST: None CT of the cervical spine is performed in the axial plane at 2 mm thick sections. Reconstructed image s in the coronal, and sagittal plane are reviewed on the computer. No acute fractures are evident. Vertebral body alignment is normal. There is diffuse disc space narrowing present. Some anterior vertebral body spurring is present C5-C6 and C6-7. Some posterior spurring is present C6-7. There is facet hypertrophy on the right at C2-3. Uncovertebral joint hypertrophy is present at multip le levels. Mild foraminal narrowing is present C3-4 on the left. Mild left and moderate right foramin al narrowing is present C4-5. Moderate bilateral foraminal narrowing is present C5-6. Moderate narrow ing is present on the left at C6-C7. Vertebral body heights are preserved. No spinal canal stenosis is evident IMPRESSIONS: 1. Degenerative disc changes. 2. Uncovertebral joint hypertrophy contributing to foraminal stenosis discussed above.
== END | disposition home or self-care (01) ==
LOC: RADCTMAIN 07:31
PROVIDERS: ATTEND Family Medicine
DX: M50.323 Other cervical disc degeneration at C6-C7 level (principal); M12.88 Other specific arthropathies, not elsewhere classified, other specified site
CPT/HCPCS: 72125

== ENCOUNTER → 2022-05-08 | Outpatient (CLI) | payer MEDICARE, BC ==
--- NOTE | 2022-05-08 15:27 | CT ---
EXAMINATION TYPE: CT cervical spine wo con DATE OF EXAM: 05/08/2022 COMPARISON: CT dated 06/14/2021 HISTORY: neck and bilateral shoulder pain, no injury CT DLP: 413 mGycm Automated exposure control for dose reduction was used. TECHNIQUE: CT scan of the cervical spine is obtained without contrast, axial images are obtained, sa gittal and coronal reformatted images are also reviewed. FINDINGS: Osteopenia. Minimal retrolisthesis of C4 over C5. No definite vertebral body collapse or acute displa ezequiel fracture. Degenerative changes of the cervical spine with multilevel opposing endplate osteophyto sis, degenerated discs and uncovertebral osteoarthropathy, most evident at C4-5, C5-6 and C6-7 levels . Multilevel facet osteoarthropathy is also noted. C2-3 level: Right facet osteoarthropathy, causing no significant central spinal canal stenosis and mi [id number] right neuroforaminal stenosis. At C3-4 level: Posterior disc osteophyte complex, causing mild central spinal canal stenosis and mild to moderate left neuroforaminal stenosis. At C4-5 level: Posterior disc osteophyte complex, causing mild central spinal canal stenosis and mode rate bilateral neuroforaminal stenosis. At C5-6 level: Posterior disc osteophyte complex, causing no significant central spinal canal stenosi s, moderate left and moderate to severe right neuroforaminal stenosis. At C6-7 level: Posterior disc osteophyte complex, causing moderate central spinal canal stenosis and severe left neuroforaminal stenosis. Prominent palatine tonsils, please correlate clinically. Nonvisualized versus small thyroid gland. Sc attered arterial atherosclerotic calcifications. No paraspinal lesion. Bilateral apical pulmonary reticulonodular infiltration and groundglass opacities, likely inflammator y/infectious in etiology, please correlate clinically. Follow-up elective CT scan of the chest can be considered if clinically required. IMPRESSION: Degenerative changes of the cervical spine with multilevel DDD, central spinal canal stenosis and marco roforaminal stenosis as detailed above, please correlate clinically. Further MRI assessment can be co nsidered if clinically required. Other incidental findings as described above.
== END | disposition home or self-care (01) ==
LOC: RADCTMAIN 14:11
PROVIDERS: ATTEND Family Medicine
DX: M47.22 Other spondylosis with radiculopathy, cervical region (principal); M50.123 Cervical disc disorder at C6-C7 level with radiculopathy; M99.71 Connective tissue and disc stenosis of intervertebral foramina of cervical region
CPT/HCPCS: 72125

== ENCOUNTER 2022-05-11 07:06 | Day surgery (SDC) | payer MEDICARE, BC ==
[2022-05-10 11:37] VITALS: BMI 34.0
[2022-05-11] MEDS ORDERED: LACTATED RINGERS 1,000 ML IV SCH (07:26)
[2022-05-11 07:33] VITALS: TEMP 96.6
[2022-05-11 07:46] LABS: Glucose,Whole Blood 85 mg/dL (70-110)
[2022-05-11] MEDS ORDERED: PROPOFOL 10 MG/ML 20 ML VIAL IV ONE (08:20)
[2022-05-11] MEDS ORDERED: LIDOCAINE 2% INJ 20 MG/ML (2 ML VIAL) ONE (08:20)
--- NOTE | 2022-05-11 08:24 | P.GSHP ---
History of Present Illness H&P Date: 05/11/22 Chief Complaint: GERD This a 66-year-old female presents today for EGD. Patient's issues with GERD. Past Medical History Past Medical History: Diabetes Mellitus, GERD/Reflux, Hyperlipidemia, Hypertension, Osteoarthritis (OA), Thyroid Disorder Additional Past Medical History / Comment(s): MIGRAINES, TRYING TO CONTROL DIABETES WITH DIET, spinal stenosis, trouble swallowing History of Any Multi-Drug Resistant Organisms: None Reported Past Surgical History: Bariatric Surgery, Section, Cholecystectomy, Joint Replacement Additional Past Surgical History / Comment(s): GASTRIC BYPASS, PAIN INJECTIONS, EXCESS SKIN REMOVED FROM ABDOMEN AND ARMS, NANCY knee replacement, COLONOSCOPY, EGD Past Anesthesia/Blood Transfusion Reactions: Motion Sickness Additional Past Anesthesia/Blood Transfusion Reaction / Comment(s): "sea sick once" Smoking Status: Former smoker - Past Family History Mother Family Medical History: Cancer Medications and Allergies Home Medications Medication Instructions Recorded Confirmed Type ALPRAZolam [Xanax] 0.5 mg PO DAILY PRN 10/15/19 05/11/22 History Furosemide [Lasix] 20 mg PO DAILY PRN 10/15/19 05/11/22 History Ibuprofen [Motrin] 600 mg PO BID PRN 10/15/19 05/11/22 History Levothyroxine Sodium 150 mcg PO DAILY 10/15/19 05/11/22 History atenoloL [Atenolol] 50 mg PO BID 10/15/19 05/11/22 History SUMAtriptan succinate [Imitrex] 100 mg PO DIRECTED PRN 01/15/20 05/11/22 History HYDROcodone/APAP 5-325MG [[place] 1 mg PO Q6HR PRN 04/20/20 05/11/22 History 5-325] FLUoxetine HCL 40 mg PO DAILY 05/10/22 05/11/22 History Gabapentin 300 mg PO TID 05/10/22 05/11/22 History Omeprazole 40 mg PO DAILY 05/10/22 05/11/22 History Topiramate 50 mg PO DAILY 05/10/22 05/11/22 History buPROPion HCL [buPROPion HCL Xl] 150 mg PO DAILY 05/10/22 05/11/22 History Allergies Allergy/AdvReac Type Severity Reaction Status Date / Time dulaglutide [From [facility]] Allergy NAUSEA,VOMITING Verified 05/11/22 07:26 SWELLING OF LYPMPHNODE, HEADACHE Penicillins Allergy Rash/Hives Verified 05/11/22 07:26 Surgical - Exam Vital Signs Temp Pulse Resp BP Pulse Ox 96.6 F L 56 L 18 122/65 95 05/11/22 07:24 05/11/22 07:24 05/11/22 07:24 05/11/22 07:24 05/11/22 07:24 - General well developed, well nourished, no distress - Eyes PERRL - ENT normal pinna - Neck no masses - Respiratory normal expansion - Cardiovascular Rhythm: regular - Abdomen Abdomen: soft, non tender Assessment and Plan Assessment: GERD. We'll perform EGD.
--- NOTE | 2022-05-11 08:30 | P.OP ---
Date of Procedure: 05/11/22 Preoperative Diagnosis: GERD Postoperative Diagnosis: Mild gastritis Mild esophagitis History of Rosa Maria-en-Y gastric bypass Procedure(s) Performed: EGD Anesthesia: MAC Surgeon: Chance Yates Pathology: other (Stomach, esophagus) Condition: stable Disposition: PACU Description of Procedure: The patient's placed on the endoscopy table in the lateral position. She received IV sedation. The gastro-/oropharynx passed in the esophagus stomach. The patient a previous gastric bypass. The gastric pouch was slightly enlarged. There is no evidence of any stricture of the gastrojejunostomy the scope was easily placed in the first limb. The stomach was minimal inflamed. Biopsies performed. The scope was then brought back and the GE junction was at 47 is. The distal esophagus appeared minimally inflamed. Biopsies performed. The proximal esophagus appeared normal. Scope was withdrawn for patient.
[2022-05-11 08:39] VITALS: RESP 16
[2022-05-11 09:37] VITALS: BP 105/68; PULSE 62
== END 2022-05-11 09:21 | disposition home or self-care (01) ==
LOC: ORWHC2ENDO 07:06
PROVIDERS: ATTEND Surgery
DX: K21.00 Gastro-esophageal reflux disease with esophagitis, without bleeding (principal); K29.50 Unspecified chronic gastritis without bleeding; E11.69 Type 2 diabetes mellitus with other specified complication; E78.5 Hyperlipidemia, unspecified; I10 Essential (primary) hypertension; M19.90 Unspecified osteoarthritis, unspecified site; E07.9 Disorder of thyroid, unspecified; Z90.49 Acquired absence of other specified parts of digestive tract; Z98.84 Bariatric surgery status; Z87.891 Personal history of nicotine dependence; Z80.9 Family history of malignant neoplasm, unspecified; Z79.890 Hormone replacement therapy; Z79.899 Other long term (current) drug therapy; Z88.0 Allergy status to penicillin; Z88.8 Allergy status to other drugs, medicaments and biological substances; G43.909 Migraine, unspecified, not intractable, without status migrainosus; F39 Unspecified mood [affective] disorder
CPT/HCPCS: 88305; 43239; J2704; J2001

== ENCOUNTER → 2022-06-08 | Outpatient (CLI) | payer MEDICARE, BC ==
--- NOTE | 2022-06-08 09:58 | FL ---
EXAMINATION: Single contrast Cervical and Thoracic Esophagram DATE OF EXAM: 06/08/2022 CLINICAL INDICATION: 66-year-old female R1 3.10, dysphagia. History of gastric bypass 15 years ago. COMPARISON: None Total Fluoroscopy Time: 2.4 minutes 70 images obtained. FINDINGS: The patient is edentulous. The swallowing mechanism is normal. There is hypertrophic/thickened cricop haryngeus muscle causing thumbprinting along the back wall of the upper cervical esophagus. Significa nt narrowing results. Additional anterior endplates spondylosis C5-C6 and C6-C7 causes mild posterior one impressions. The thoracic portion has a normal course and caliber. Mild age-related dysmotility with intermittent slight delay in complete clearance of contrast from esophagus. The mucosa is normal and no persistent filling defect is encountered. There is a small sliding hiatal hernia noted. Combination of Valsalva and turning maneuvers while the patient is supine results in severe gastroesophageal reflux to the neck. We note a normal appearance to the patient's gastrojejunostomy. IMPRESSION: 1. Small sliding hiatal hernia. Severe gastroesophageal reflux up to the patient's neck upon Valsalva and turning maneuvers. 2. Marked CP muscle hypertrophy probably a protective mechanism against the severe reflux and probabl y explains the patient's clinical symptoms. 3. Status post Rosa Maria-en-Y gastric bypass.
== END | disposition home or self-care (01) ==
LOC: RADUSWWP 08:50
PROVIDERS: ATTEND Family Medicine
DX: K21.9 Gastro-esophageal reflux disease without esophagitis (principal); K44.9 Diaphragmatic hernia without obstruction or gangrene
CPT/HCPCS: 74220

== ENCOUNTER → 2022-07-05 | Outpatient (CLI) | payer MEDICARE, BC ==
[2022-07-05 09:32] VITALS: BP 114/73; PULSE 52; RESP 18; TEMP 98.4
--- NOTE | 2022-07-05 14:44 | P.PAINPG ---
PQRS Measure Charge Sheet Comment: A 66 yr old female with a history of severe and chronic low back pain secondary to lumbar degenerative disc diseases and lumbar spondylosis with facet arthropathy presents today for evaluation. Pain level is currently at 2/10 in intensity but escalates as high as 8/10 when standing/ walking for periods of 15 min or more. Pain is constant, achy in character in the lower aspect of the lumbar spine w radiation of pain occasionally towards the R hip. Pain is alleviated with medications (Paoli), injections, heat, physical therapy for 6 weeks in April 2022 and will restart physical therapy for her cervical spine soon, use of a cane for ambulation, sitting, repositioning and rest. Interventional pain procedures completed include B SI injections x 2. LESI L3- L4. Patient is currently on Paoli Patient denies any side effects of the medication(s), denies excessive drowsiness or sleepiness, denies suicidal ideation and reports that the current pain medication is helping to control the pain and improve activities of daily living. Patient denies any motor or sensory deficits. Patient denies any fever or night sweats, denies any change in the bowel movements or urination. Physical Examination: -Constitutional: Cooperative. Not in acute distress . - Neurologic: Cranial nerve II to XII intact. No focal neurological deficits. - Psychatric: Alert & oriented x 3. Matching mood & appropriate affect. Judgment and insight intact. - Musculoskeletal: Cervical spine: Muscle bulk/ tone/ strength in the bilateral upper extremities normal Vertebral body tenderness to palpation over Spurling test positive Distraction test positive Facet loading test positive Thoracic spine Muscle bulk / tone/ strength in the bilateral paraspinal muscles normal Vertebral body tender to palpation over Facet loading test positive Lumbar spine: Motor bulk/ tone/ strength lower extremities , thigh and legs : 5/5 Deep tendon reflexes : Normal Knee Jerk. Normal Ankle Jerk . Vertebral body tenderness to palpation over L4, L5 Lumbar Facet Loading Test positive Straight Leg Raise: positive at 30 degrees right side/ left side Gaenslen's Test positive Sacral spine : Severe tenderness over the Sacroiliac joint: right side / left side Range of motion: Flexion of the lumbar spine <60 degrees Range of motion: Extension of the lumbar spine <20 degrees Gaenslen's Test positive De's Test positive [place] test: positive right side / left side Thigh Thrust Test Sacral Thrust Test Assessment and plan: Chronic low back pain secondary to lumbar degenerative disc disease , lumbar spondylosis with facet arthropathy without myelopathy Recommendation of LESI L4-L5. May need a series of injections, up to 3 within a 6 mo period, for optimal pain relief. Risks, benefits of procedure discussed and pt verbalized understanding. Denies anticoagulant use or medical history of diabetes. All patient questions answered MAPS reviewed and it was appropriate. I have spent less than 30 minutes on patient care today. Dr Diaz was available by phone for the evaluation of this patient. The time was used to review the medical records including relevant urine studies and Prescription history (MAPs), review of the available imaging, evaluation and examination of the patient, coordination of care with the medical staff and if applicable referring physicians, as well as creation of the medical record PQRS Narrative: Smoking Status Former smoker Hx Alcohol Use (MH) Yes: RARE Home Medications: Ambulatory Orders ALPRAZolam [Xanax] 0.5 mg PO DAILY PRN 10/15/19 Furosemide [Lasix] 20 mg PO DAILY PRN 10/15/19 Ibuprofen [Motrin] 600 mg PO BID PRN 10/15/19 Levothyroxine Sodium 150 mcg PO DAILY 10/15/19 atenoloL [Atenolol] 50 mg PO BID 10/15/19 SUMAtriptan succinate [Imitrex] 100 mg PO DIRECTED PRN 01/15/20 HYDROcodone/APAP 5-325MG [[place] 5-325] 1 mg PO Q6HR PRN 04/20/20 FLUoxetine HCL 40 mg PO DAILY 05/10/22 Gabapentin 300 mg PO TID 05/10/22 Omeprazole 40 mg PO DAILY 05/10/22 Topiramate 50 mg PO DAILY 05/10/22 buPROPion HCL [buPROPion HCL Xl] 150 mg PO DAILY 05/10/22 Controlled Substance Measures - Controlled Substance Measures Is patient prescribed a controlled substance at discharge?: No
== END ==
LOC: PNWHC3 08:51
PROVIDERS: ATTEND Specialist
DX: M48.02 Spinal stenosis, cervical region (principal); M51.36 Other intervertebral disc degeneration, lumbar region; M47.816 Spondylosis without myelopathy or radiculopathy, lumbar region; G89.29 Other chronic pain; Z87.891 Personal history of nicotine dependence; Z88.0 Allergy status to penicillin; Z88.8 Allergy status to other drugs, medicaments and biological substances
CPT/HCPCS: 99211

== ENCOUNTER → 2022-08-24 | Day surgery (SDC) | payer MEDICARE, BC ==
[2022-08-23 08:49] VITALS: BMI 33.6
[~2022-08-24] MED LIST changes: +IOPAMIDOL M200 10 ML VIAL ONE; +IV FLUID CONTINUATION 650 ML IV ONE; +LACTATED RINGERS 1,000 ML IV ONE; -LACTATED RINGERS 1,000 ML IV SCH; +LIDOCAINE 1% (10MG/ML) FOR IV START INTRADERMA ONE; +MIDAZOLAM 2 MG/2 ML VIAL ONE; +fentaNYL (PF) 50 MCG/ML 2 ML AMP ONE; +methylPREDNISolone ACETATE 80 MG/ML 1 ML VIAL ONE
[2022-08-24 12:33] VITALS: TEMP 97.8
--- NOTE | 2022-08-24 13:21 | P.PCN ---
Date of Procedure: 08/24/22 Procedure(s) Performed: PREOPERATIVE DIAGNOSIS: 1- Lumbar Degenerative Disc Diseases 2-Lumbar spondylosis with Facet arthropathy without myelopathy. POSTOPERATIVE DIAGNOSIS: Same as preop diagnosis. PROCEDURE 1. Lumbar epidural steroid injection under fluoroscopic guidance at the L4-5 level. (Fluoroscopy imaging was available in radiology department) 2. Lumbar epidurogram. ANESTHESIA: moderate sedation with intravenous Versed 2 mg ,and fentanyle 100 Mcg Sedation start time : 1308 Sedation end time : 1319 EBL: Minimal PROCEDURE INDICATION: The patient with low back pain and radiculitis symptoms unresponsive to conservative treatment. Fluoroscopy was used to optimize visualization of the needle placement and to maximize safety. PROCEDURE DESCRIPTION / TECHNIQUE: The patient was seen and identified in the preoperative area. Risks, benefits, complications including but not limited to infections ,bleeding ,allergic reaction to the medications ,nerve damage and not complete pain releife , and alternatives were discussed with the patient. The patient agreed to proceed with the procedure and signed the consent. IV was started, and vital signs were stable. Patient was taken to the OR and time out was completed. The patient was placed in the prone position on procedure table and a pillow was placed under the abdomen to reduce lumbar lordosis. The lumbosacral area was prepped and draped in the usual sterile fashion.ere closely monitored during the procedure. Conscious sedation was used during the procedure to decrease patients anxiety. Vital signs was monitered during the entire procedure. Using anterior-posterior fluoroscopy, the L4-5 interlaminar space was identified and the skin over this site was marked and then infiltrated with 1% lidocaine subcutaneously. Subsequently, a 20-gauge Tuohy epidural needle was inserted and advanced toward the epidural space using the ``Loss of resistance technique and guided by AP and lateral fluoroscopy. The correct needle position in the epidural space was verified with the injection of 2 mL of the water soluble contrast dye Isovue 200 contrast and observing an excellent epidurogram with the epidural spread of the dye, after negative aspiration for blood and CSF and in the absence of paresthesias. Again after negative aspiration, a 6 ml mixture containing 60 mg of Depo-medrol ( Preservetive Free ), and 2 ml of preservative free Normal Saline, and 2 ml of preservative free lidocaine 1% solution was injected and a washout of epidurogram was seen. Needle was withdrawn intact, skin was cleansed, and bandages were applied. COMPLICATIONS: None DISPOSITION / PLANS: The patient was placed in a supine position and transferred to the recovery area in a stable condition for observation. There was no evidence of lower extremity motor or sensory deficit after the procedure. Patient was discharged from the recovery room after meeting discharge criteria. Home discharge instructions were given to the patient by the staff. The patient was reexamined prior to discharge. The patient will schedule a follow up in the clinic in 2-4 weeks.
--- NOTE | 2022-08-24 13:32 | FL ---
Intraoperative/procedural fluoroscopic services were provided for lumbar epidural injection. Total fl uoroscopy time is 8 seconds with a total of 1 submitted image to PACS. Please see the operative note for further details.
[2022-08-24 13:33] VITALS: RESP 16
[2022-08-24 13:42] VITALS: BP 138/65; PULSE 55
== END ==
LOC: ORPAIN 11:34
PROVIDERS: ATTEND Specialist
DX: M51.16 Intervertebral disc disorders with radiculopathy, lumbar region (principal); M47.26 Other spondylosis with radiculopathy, lumbar region; Z88.0 Allergy status to penicillin; Z91.09 Other allergy status, other than to drugs and biological substances
CPT/HCPCS: 99152; 62323; J2250; J1040; J3010; Q9966

== ENCOUNTER → 2022-09-06 | Outpatient (CLI) | payer MEDICARE, BC ==
[2022-09-06 11:26] VITALS: BP 130/93; PULSE 66; RESP 16
--- NOTE | 2022-09-06 14:45 | P.PAINPG ---
Objective - Vital Signs Vital signs: Intake & Output 09/05/22 09/06/22 09/06/22 18:59 06:59 18:59 Weight 78.925 kg PQRS Measure Charge Sheet Comment: A 66 yr old female with a history of severe and chronic low back pain secondary to lumbar degenerative disc diseases and lumbar spondylosis with facet arthropathy without myelopathy presents today for evaluation s/p SKIP L4-L5. Pt states she experienced 80% pain relief x 2 wks s/p procedure. Pain level is currently at 5/10 in intensity, constant, localized in R lower lumbar spine, dull/ achy in character w shooting towards R flank. Pain is provoked by bending. Pain is alleviated with heat, PT currently meds (Ballinger), topicals, repositioning and rest. She is no longer using her cane. Interventional pain procedures completed include SKIP L4-L5 Patient is currently on Ballinger prn Patient denies any side effects of the medication(s), denies excessive drowsiness or sleepiness, denies suicidal ideation and reports that the current pain medication is helping to control the pain and improve activities of daily living. Patient denies any motor or sensory deficits. Patient denies any fever or night sweats, denies any change in the bowel movements or urination. Physical Examination: -Constitutional: Cooperative. Not in acute distress . - Neurologic: Cranial nerve II to XII intact. No focal neurological deficits. - Psychatric: Alert & oriented x 3. Matching mood & appropriate affect. Judgment and insight intact. - Musculoskeletal: Cervical spine: Muscle bulk/ tone/ strength in the bilateral upper extremities normal Vertebral body tenderness to palpation over Spurling test positive Distraction test positive Facet loading test positive Thoracic spine Muscle bulk / tone/ strength in the bilateral paraspinal muscles normal Vertebral body tender to palpation over Facet loading test positive Lumbar spine: Motor bulk/ tone/ strength lower extremities , thigh and legs : 5/5 Deep tendon reflexes : Normal Knee Jerk. Normal Ankle Jerk . Vertebral body tenderness to palpation over Lumbar Facet Loading Test positive Straight Leg Raise: positive at 30 degrees right side/ left side Gaenslen's Test positive Sacral spine : Severe tenderness over the Sacroiliac joint: right side / left side Range of motion: Flexion of the lumbar spine <60 degrees Range of motion: Extension of the lumbar spine <20 degrees Gaenslen's Test positive De's Test positive [place] test: positive right side / left side Thigh Thrust Test Sacral Thrust Test Assessment and plan: Chronic low back pain secondary to lumbar degenerative disc disease , lumbar spondylosis with facet arthropathy without myelopathy Pt exhibited sufficient pain relief. She will complete her Cervical MRI in 1 week and may return to this clinic for a re evaluation as needed. All patient questions answered I have spent less than 30 minutes on patient care today. Dr Diaz was available by phone for the evaluation of this patient. The time was used to review the medical records including relevant urine studies and Prescription history (MAPs), review of the available imaging, evaluation and examination of the patient, coordination of care with the medical staff and if applicable referring physicians, as well as creation of the medical record PQRS Narrative: Smoking Status Former smoker Hx Alcohol Use (MH) Yes: RARE Home Medications: Ambulatory Orders ALPRAZolam [Xanax] 0.5 mg PO DAILY PRN 10/15/19 Levothyroxine Sodium 125 mcg PO DAILY 10/15/19 atenoloL [Atenolol] 50 mg PO BID 10/15/19 FLUoxetine HCL 40 mg PO DAILY 05/10/22 Gabapentin 300 mg PO BID 05/10/22 Omeprazole 40 mg PO BID 05/10/22 buPROPion HCL [buPROPion HCL Xl] 150 mg PO DAILY 05/10/22 HYDROcodone/APAP 7.5-325MG [Ballinger 7.5-325] 1 tab PO Q6HR PRN 08/07/22 Midodrine [ProAmatine] 5 mg PO DAILY 08/07/22 Controlled Substance Measures - Controlled Substance Measures Is patient prescribed a controlled substance at discharge?: No
== END ==
LOC: PNWHC3 11:00
PROVIDERS: ATTEND Specialist
DX: M51.36 Other intervertebral disc degeneration, lumbar region (principal); M47.816 Spondylosis without myelopathy or radiculopathy, lumbar region; G89.29 Other chronic pain; Z88.0 Allergy status to penicillin; Z87.891 Personal history of nicotine dependence; Z88.8 Allergy status to other drugs, medicaments and biological substances; F10.90 Alcohol use, unspecified, uncomplicated
CPT/HCPCS: 99211

== ENCOUNTER → 2022-09-13 | Outpatient (CLI) | payer MEDICARE, BC ==
--- NOTE | 2022-09-14 10:23 | MR ---
EXAMINATION TYPE: MR cervical spine wo con DATE OF EXAM: 09/13/2022 INDICATION: Patient age:Female; 66 years old; Reason for study: M48.02 Cervical stenosis, cervical pain. Neck pain, radiates into right shoulder an d down arm. COMPARISON: CT C-spine 05/08/2022. TECHNIQUE: Multi planar, multi sequence imaging was performed utilizing: T1-weighted, T2-weighted, an d turbo inversion recovery imaging of the cervical spine. IV Contrast: None FINDINGS: Alignment: The cervical vertebral bodies have preserved heights. Alignment is within normal limits gi eun patient positioning. Bones: Bone signal is within normal limits. Multilevel degenerative disc disease is noted and most p ronounced at the C3-C7 vertebral levels. Cord: The spinal cord is unremarkable with regards to their signal intensity and morphology. Discs: Intervertebral disc signal is maintained. C2-C3: A disc osteophyte complex is present which minimally narrows the ventral subarachnoid space. No neural foraminal stenosis. C3-C4: A disc osteophyte complex is present with moderate spinal canal stenosis. Bilateral facet and uncovertebral joint arthropathy are present with moderate bilateral neural foraminal stenosis. C4-C5: A disc osteophyte complex is present with moderate spinal canal stenosis. Bilateral facet and uncovertebral joint arthropathy are present with moderate to severe bilateral neural foraminal steno sis. C5-C6: A disc osteophyte complex is present with mild spinal canal stenosis. Bilateral facet and unc overtebral joint arthropathy are present with moderate to severe bilateral neural foraminal stenosis. C6-C7: A disc osteophyte complex is present with moderate spinal canal stenosis. Bilateral facet and uncovertebral joint arthropathy are present with moderate to severe left and moderate right neural f oraminal stenosis. C7-T1: No significant disc pathology. The spinal canal is patent. No neural foraminal stenosis. Other: None. IMPRESSION: 1. No evidence for disc herniation. 2. C3-C4, C4-C5 and C6-C7 moderate spinal canal stenosis secondary to disc osteophyte complex. 3. Multilevel disc degeneration with associated osteoarthritic changes with moderate to severe bilate ral neural foraminal stenosis throughout the spine, as described above and worse at C4-C5 and C5-C6 b ilaterally and left C6-C7.
== END | disposition home or self-care (01) ==
LOC: RADMRIMAIN 18:56
PROVIDERS: ATTEND Orthopaedic Surgery
DX: M48.02 Spinal stenosis, cervical region (principal); M50.321 Other cervical disc degeneration at C4-C5 level; M47.812 Spondylosis without myelopathy or radiculopathy, cervical region
CPT/HCPCS: 72141

== ENCOUNTER → 2022-09-20 | Outpatient (CLI) | payer MEDICARE, BC ==
[2022-09-20 13:15] VITALS: BP 139/78; PULSE 63; RESP 18; TEMP 98.2
--- NOTE | 2022-09-20 14:13 | P.PAINPG ---
PQRS Measure Charge Sheet Comment: A 66 yr old female with a history of severe and chronic neck pain secondary to cervical degenerative disc diseases and spondylosis with facet arthropathy without myelopathy presents today for imaging results of cervical spine. Pain level is currently at 7/10 in intensity, constant, localized in mid to lwoer cervical spine, achy/ sharp in character w shooting towards the R shoulder. Pain is provoked by lifting and overhead reaching. Pain is alleviated with PT integrated w massage w 2 visits left currently, ultrasound in PT, heat, medications ([place], Neurontin), CBD topicals, repositioning and rest. Interventional pain procedures completed include BL SI x2, LESI L4-L5 Patient is currently on [place], Neurontin Patient denies any side effects of the medication(s), denies excessive drowsiness or sleepiness, denies suicidal ideation and reports that the current pain medication is helping to control the pain and improve activities of daily living. Patient denies any motor or sensory deficits. Patient denies any fever or night sweats, denies any change in the bowel movements or urination. Physical Examination: -Constitutional: Cooperative. Not in acute distress . - Neurologic: Cranial nerve II to XII intact. No focal neurological deficits. - Psychatric: Alert & oriented x 3. Matching mood & appropriate affect. Judgment and insight intact. - Musculoskeletal: Cervical spine: Muscle bulk/ tone/ strength in the bilateral upper extremities normal Vertebral body tenderness to palpation over C6 Spurling test positive Distraction test positive Facet loading test positive Thoracic spine Muscle bulk / tone/ strength in the bilateral paraspinal muscles normal Vertebral body tender to palpation over Facet loading test positive Lumbar spine: Motor bulk/ tone/ strength lower extremities , thigh and legs : 5/5 Deep tendon reflexes : Normal Knee Jerk. Normal Ankle Jerk . Vertebral body tenderness to palpation over Lumbar Facet Loading Test positive Straight Leg Raise: positive at 30 degrees right side/ left side Gaenslen's Test positive Sacral spine : Severe tenderness over the Sacroiliac joint: right side / left side Range of motion: Flexion of the lumbar spine <60 degrees Range of motion: Extension of the lumbar spine <20 degrees Gaenslen's Test positive De's Test positive [place] test: positive right side / left side Thigh Thrust Test Sacral Thrust Test Imaging: MRI without contrast of the cervical spine 09/13/22 reviewed Assessment and plan: Chronic neck pain secondary to cervical degenerative disc disease, spondylosis with facet arthropathy without myelopathy Recommendation of SKIP C6-C7. May need a series, up to 3 within a 6 mo period, for optimal pain relief. Risks, benefits of procedure discussed and pt verbalized understanding. Denies anticoagulant use or medical history of diabetes. All patient questions answered I have spent less than 30 minutes on patient care today. Dr Diaz was available by phone for the evaluation of this patient. The time was used to review the medical records including relevant urine studies and Prescription history (MAPs), review of the available imaging, evaluation and examination of the patient, coordination of care with the medical staff and if applicable referring physicians, as well as creation of the medical record PQRS Narrative: Smoking Status Former smoker Hx Alcohol Use (MH) Yes: RARE Home Medications: Ambulatory Orders ALPRAZolam [Xanax] 0.5 mg PO DAILY PRN 10/15/19 Levothyroxine Sodium 125 mcg PO DAILY 10/15/19 atenoloL [Atenolol] 50 mg PO BID 10/15/19 FLUoxetine HCL 40 mg PO DAILY 05/10/22 Gabapentin 300 mg PO BID 05/10/22 Omeprazole 40 mg PO BID 05/10/22 buPROPion HCL [buPROPion HCL Xl] 150 mg PO DAILY 05/10/22 HYDROcodone/APAP 7.5-325MG [[place] 7.5-325] 1 tab PO Q6HR PRN 08/07/22 Midodrine [ProAmatine] 5 mg PO DAILY 08/07/22 Controlled Substance Measures - Controlled Substance Measures Is patient prescribed a controlled substance at discharge?: No
== END ==
LOC: PNWHC3 12:43
PROVIDERS: ATTEND Specialist
DX: M47.812 Spondylosis without myelopathy or radiculopathy, cervical region (principal); M50.30 Other cervical disc degeneration, unspecified cervical region; G89.29 Other chronic pain; Z87.891 Personal history of nicotine dependence; Z88.0 Allergy status to penicillin; Z88.8 Allergy status to other drugs, medicaments and biological substances
CPT/HCPCS: 99211

== ENCOUNTER → 2022-11-07 | Day surgery (SDC) | payer MEDICARE, BC ==
[2022-11-03 13:04] VITALS: BMI 34.0
[~2022-11-07] MED LIST changes: +DEXAMETHASONE SOD PHOSPHATE 10 MG/ML 1 ML VIAL ONE; +IV FLUID CONTINUATION 1,000 ML IV ONE; -IV FLUID CONTINUATION 650 ML IV ONE; -LIDOCAINE 1% (10MG/ML) FOR IV START INTRADERMA ONE; -methylPREDNISolone ACETATE 80 MG/ML 1 ML VIAL ONE
[2022-11-07 10:48] VITALS: TEMP 97.2
[2022-11-07 11:00] LABS: Glucose,Whole Blood 85 mg/dL (70-110)
--- NOTE | 2022-11-07 11:25 | P.PCN ---
Date of Procedure: 11/07/22 Procedure(s) Performed: . PROCEDURE 1. Cervical epidural steroid injection under fluoroscopic guidance, C6-7 (fluoroscopy images available in the radiology department ) 2. Cervical epidurogram. PREOPERATIVE DIAGNOSIS: 1- Cervical Degenerative Disc Diseases 2- Cervical radiculopathy. POSTOPERATIVE DIAGNOSIS: : 1- Cervical Degenerative Disc Diseases , 2- Cervical radiculopathy. ANESTHESIA: moderate sedation, with Versed 2 mg and Fentanyl 50 mcg. Sedation start time : 11:15 Sedation end time : 1122 EBL 0 PROCEDURE INDICATION: The patient with neck pain and radiculitis unresponsive to conservative treatment consents for procedure. PROCEDURE DESCRIPTION / TECHNIQUE: The patient was seen and identified in the preoperative area. Risks, benefits, complications, including but not limited to infections ,bleeding , allergic reactions to the medications ,and not complete pain releife, and alternatives were discussed with the patient, the patient agreed to proceed with the procedure and signed the consent. Patient was taken to the OR and time out was completed. The patient was placed in the prone position on the procedure table. A pillow was placed under the patients chest to increase the cervical interlaminar space. The cervical area was prepped and draped in the usual sterile fashion. Vital signs were closely monitored during the procedure. Conscious sedation was used during the procedure to decrease patients anxiety. Using anterior-posterior fluoroscopy, the C6-7 interlaminar space was identified and the skin over this site was marked and then infiltrated with 1% lidocaine subcutaneously. Subsequently, a 20-gauge 3-1/2-inch Tuohy epidural needle was inserted and advanced toward the epidural space by means of the ``hanging-drop technique and guided by AP and lateral fluoroscopy. The correct needle position in the epidural space was verified with the injection of 2 mL of the water soluble contrast dye Isovue-200 and observing an excellent epidurogram with the epidural spread of the dye, after negative aspiration for blood and CSF and in the absence of paresthesias. then, mixture containing 20 mg Dexamethasone and 2 ml of preservative-free normal saline injected and a washout of epidurogram was seen. Needle was withdrawn intact, skin was cleansed, and bandages were applied. Complications= none. Disposition= patient was placed in supine position and transferred to the recovery room area in stable condition and there was no evidence of upper or lower extremity motor or sensory deficit after the procedure patient was discharged from recovery room after discharge criteria met and home discharge instructions was given by the staff and patient will follow with the pain clinic in 2-4 weeks
--- NOTE | 2022-11-07 11:31 | FL ---
Intraoperative/procedural fluoroscopic services were provided for cervical epidural steroid injection . Total fluoroscopy time is 3 seconds with a total of 1 submitted image to PACS. Please see the opera tive note for further details.
[2022-11-07 11:45] VITALS: BP 138/65; PULSE 51; RESP 16
== END ==
LOC: ORPAIN 09:52
PROVIDERS: ATTEND Specialist
DX: M50.123 Cervical disc disorder at C6-C7 level with radiculopathy (principal)
CPT/HCPCS: 62321; J2250; J1100; J3010; Q9966

== ENCOUNTER → 2022-11-13 | Outpatient (CLI) | payer MEDICARE, BC ==
--- NOTE | 2022-11-13 12:46 | MR ---
EXAMINATION TYPE: MR lumbar spine wo con DATE OF EXAM: 11/13/2022 12:21 PM COMPARISON: MRI lumbar spine 10/25/2019. CLINICAL INDICATION:Female, 66 years old with history of M47.26 spondylosis; TECHNIQUE: Multi planar, multi sequence imaging was performed utilizing: T1-weighted, T2-weighted, a nd turbo inversion recovery imaging of the lumbar spine. IV Contrast: None. FINDINGS: Alignment: The lumbar vertebral bodies have preserved heights. There is grade 1 anterolisthesis of L4 and L5. Cord: The conus medullaris and the distal spinal cord appear unremarkable with regards to their signa l intensity and morphology. Bones/Discs: T12-T1 and high T2 signal vertebral body probable hemangioma. Multilevel degenerative di sc disease is noted and most pronounced at the L1-L5. Multilevel disc desiccation is present. L1-L2: Disc bulge and facet joint arthropathy with mild spinal canal stenosis and severe right and mi ld left neural foraminal stenosis. L2-L3: Disc bulge and facet joint arthropathy with mild to moderate spinal canal and moderate bilater al neural foraminal stenosis. L3-L4: Disc bulge and facet joint arthropathy with moderate spinal canal and moderate bilateral neura l foraminal stenosis. L4-L5: Grade 1 anterolisthesis with facet joint arthropathy and disc uncovering results in moderate t o severe spinal canal stenosis and severe bilateral neural foraminal stenosis. L5-S1: Disc bulge and facet joint arthropathy result in mild spinal canal and moderate bilateral neur al foraminal stenosis. Other findings: None. IMPRESSION: Overall findings not significantly changed from 10/25/2019. 1. L4-L5 grade 1 anterolisthesis with moderate to severe spinal canal and severe bilateral neural fo raminal stenosis. 2. L1-L2 severe right neural foraminal stenosis.
== END | disposition home or self-care (01) ==
LOC: RADMRIMAIN 11:19
PROVIDERS: ATTEND Orthopaedic Surgery
DX: M47.26 Other spondylosis with radiculopathy, lumbar region (principal); M43.16 Spondylolisthesis, lumbar region; M48.061 Spinal stenosis, lumbar region without neurogenic claudication; M99.73 Connective tissue and disc stenosis of intervertebral foramina of lumbar region
CPT/HCPCS: 72148

== ENCOUNTER 2023-03-02 09:29 | Day surgery (SDC) | payer MEDICARE, BC ==
[~2023-03-02 09:29] MED LIST changes: -DEXAMETHASONE SOD PHOSPHATE 10 MG/ML 1 ML VIAL ONE; -IOPAMIDOL M200 10 ML VIAL ONE; -IV FLUID CONTINUATION 1,000 ML IV ONE; -LACTATED RINGERS 1,000 ML IV ONE; +LACTATED RINGERS 1,000 ML IV SCH; +LIDOCAINE 1% (10MG/ML) FOR IV START INTRADERMA PRN; -MIDAZOLAM 2 MG/2 ML VIAL ONE; -fentaNYL (PF) 50 MCG/ML 2 ML AMP ONE
[2023-03-02 09:54] LABS: Glucose,Whole Blood 89 mg/dL (70-110)
[2023-03-02 10:00] VITALS: TEMP 98
[2023-03-02] MEDS ORDERED: PROPOFOL 10 MG/ML 20 ML VIAL IV ONE (11:40)
[2023-03-02] MEDS ORDERED: LIDOCAINE 2% INJ 20 MG/ML (2 ML VIAL) ONE (11:40)
--- NOTE | 2023-03-02 11:48 | P.PCN ---
Date of Procedure: 03/02/23 Procedure(s) Performed: BRIEF HISTORY: Patient is a 57-year-old, pleasant, at female scheduled for an upper endoscopy as a part of evaluation of intermittent dysphagia to solids for the last 6 months duration. She does have long-standing history of GERD and has been on omeprazole 20 mg twice daily. She also has prior history of Rosa Maria-en-Y gastric bypass surgery. Recent barium swallow showed cricopharyngeal muscular hypertrophy but no evidence of esophageal stricture.. PROCEDURE PERFORMED: Esophagogastroduodenoscopy with biopsy. PREOPERATIVE DIAGNOSIS: Dysphagia to solids of 6 months duration. IV sedation per anesthesia. PROCEDURE: After informed consent was obtained, the patient was brought into the endoscopy unit. IV sedation was administered by Anesthesia under continuous monitoring. Initially the Olympus GIF-140 video endoscope was inserted into the mouth. Esophagus intubated without any difficulty. It was gradually advanced into the stomach . The gastric pouch appeared normal. There was mild gastritis noted. There was Rosa Maria-en-Y gastric bypass surgery with anastomosis identified that was normal. The afferent and efferent loops appeared normal. Biopsies were done from the gastric remnant. The scope was then withdrawn into the esophagus. The GE junction was located at 39 cm from the incisors. Moderate hiatal hernia noted. The esophagus appeared normal. There were no erosions or ulcerations seen and biopsies were done from the distal esophagus. The proximal cervical esophagus was carefully examined and appeared normal and the patient tolerated the procedure well. IMPRESSION: 1. Small hiatal hernia but no evidence of esophagitis or esophageal stricture. 2. Mild gastritis of the gastric remnant and evidence of gastric Rosa Maria-en-Y bypass surgery. 3. No evidence of cricopharyngeal dysfunction. RECOMMENDATIONS: The findings of this examination were discussed with the patient as well as a family. She will continue with omeprazole 20 mg twice daily and follow antireflux measures. Follow with the biopsy results and she'll be seen in office in 3-4 weeks.
[2023-03-02 12:12] VITALS: BP 121/67; PULSE 53; RESP 17
== END 2023-03-02 12:33 | disposition home or self-care (01) ==
LOC: ORWHC2ENDO 09:29
PROVIDERS: ATTEND Internal Medicine Gastroenterology
DX: K29.50 Unspecified chronic gastritis without bleeding (principal); K44.9 Diaphragmatic hernia without obstruction or gangrene; I10 Essential (primary) hypertension; E78.5 Hyperlipidemia, unspecified; E11.9 Type 2 diabetes mellitus without complications; E03.9 Hypothyroidism, unspecified; K21.9 Gastro-esophageal reflux disease without esophagitis; F41.9 Anxiety disorder, unspecified; G43.909 Migraine, unspecified, not intractable, without status migrainosus; Z88.0 Allergy status to penicillin; Z79.899 Other long term (current) drug therapy
CPT/HCPCS: 43239; J2704; J2001; 88305

== ENCOUNTER → 2023-05-30 | Outpatient (CLI) | payer MEDICARE, BC ==
--- NOTE | 2023-05-30 07:49 | MM ---
Reason for Exam: Clinical finding. Last mammogram was performed 2 year(s) and 8 month(s) ago. Patient History: Menarche at age 12. First Full-Term at age 22. Postmenopausal. Estrogen for 1 year from age 61 until age 61. Mother had breast cancer, age 69. Risk Values: Annie 5 year model risk: 3.2%. NCI Lifetime model risk: 10.8%. Tissue Density: The breast tissue is heterogeneously dense. This may lower the sensitivity of mammography. Findings: Analyzed By CAD. No new suspicious masses, calcifications or distortions. No new suspicious masses, calcifications or distortions. No finding to correlate patient's pain. Overall Assessment: Incomplete: need additional imaging evaluation, BI-RAD 0 Management: Diagnostic Breast Ultrasound of both breasts. Results were given to the patient verbally at the time of exam. Patient should continue monthly self-breast exams. A clinical breast exam by your physician is recommended on an annual basis. This exam should not preclude additional follow-up of suspicious palpable abnormalities. Note on Annie scores and lifetime risk: 1. A Annie score greater than 3% is considered moderate risk. If this is the case, consider specialist referral to assess eligibility for a risk reducing agent. 2. If overall lifetime risk for the development of breast cancer is 20% or higher, the patient may qualify for future screening with alternating mammogram and breast MRI. Electronically signed and approved by: Asif Wright DO
--- NOTE | 2023-05-30 08:42 | USB ---
Reason for Exam: Clinical finding. Patient History: Menarche at age 12. First Full-Term at age 22. Postmenopausal. Estrogen for 1 year from age 61 until age 61. Mother had breast cancer, age 69. Risk Values: Annie 5 year model risk: 3.2%. NCI Lifetime model risk: 10.8%. Technique: Method: Whole Breast Handheld. Prior Study Comparison: 11/29/2017 Screening Mammogram, [place]. 01/30/2019 Bilateral Screening Mammogram, [facility]. 10/04/2020 Bilateral Diagnostic Mammogram, [facility]. Findings: The whole breast of both breasts, the axilla of both breasts and the retroareolar of both breasts were scanned. Imaged: Ultrasound imaging of: All 4 quadrants, the retroareolar region and axilla. No evidence for organizing fluid collection or mass. Overall Assessment: Negative, BI-RAD 1 Management: Screening Mammogram of both breasts in 1 year. A clinical breast exam by your physician is recommended on an annual basis and results should be correlated with mammographic findings. This exam should not preclude additional follow-up of suspicious palpable abnormalities. Results were given to the patient verbally at the time of exam. Electronically signed and approved by: Asif Wright DO
--- NOTE | 2023-05-31 07:40 | BD ---
EXAMINATION TYPE: Axial Bone Density DATE OF EXAM: 05/30/2023 CLINICAL HISTORY: 67 years old Female. ICD-10 CODE: Z78.0 ASYMPTOMATIC MENOPAUSAL STATE Height: 5 ft 1 in Weight: 186 FRAX RISK QUESTIONS: Alcohol (3 or more units per day): no Family History (Parent hip fracture): no Glucocorticoids (More than 3mos): no (Ex: prednisone, prednisolone, methylprednisolone, dexamethasone, and hydrocortisone). History of Fracture in Adulthood: no Secondary Osteoporosis: 1. Type 1 Diabetes: no 2. Hyperthyroidism: no 3. Menopause before 45: no 4. Malnutrition: no 5. Chronic liver disease: no Rheumatoid Arthritis: no Current Tobacco Use: no RISK FACTORS HISTORY OF: Surgery to Spine/Hip(right/left)/Wrist (right/left): no Family History of Osteoporosis: no Active: no Diet low in dairy products/other sources of calcium: no Postmenopausal woman: yes Take estrogen and/or progesterone medications: no Lost more than 2 inches in height since high school: no Frequent falls: unsteady Poor Health: good Hyperparathyroidism: no Adrenal Insufficiency: no MEDICATIONS: Thyroid Medications: yes Which medication: levothyroxine How Lon plus years Additional Medications: levothyroxine, Wellbutrin, anti anxiety meds, hydrocodone, Atenolol, blood p ressure meds, gabapentin, omeprazole Additional History: EXAM MEASUREMENTS: Bone mineral densitometry was performed using the [employer] System. Bone mineral density as measured about the Lumbar spine is: ----- L1-L4(G/cm2): 1.410 T Score Values are as follows: ----- L1: 0.9 ----- L2: 1.9 ----- L3: 2.2 ----- L4: 2.3 ----- L1-L4: 1.9 Z Score Values are as follows: ----- L1: 1.9 ----- L2: 2.9 ----- L3: 3.2 ----- L4: 3.3 ----- L1-L4: 2.9 prev unavailable for comparison Bone mineral density about the R hip (g/cm2): 0.918 Bone mineral density about the L hip (g/cm2): 0.751 T Score values are as follows: -----R Neck: -0.9 -----L Neck: -2.1 -----R Total: -0.9 -----L Total: -1.9 Z Score values are as follows: -----R Neck: 0.3 -----L Neck: -0.9 -----R Total: 0.0 -----L Total: -1.1 prev unavailable for comparison FRAX%s: The graph provided illustrates a 10.9% chance for a major osteoporotic fx and a 1.8 % chance for the hips probability for fx in 10 years time. IMPRESSION: Osteopenia (T Score between -2.5 and -1). There is slightly increased risk of fracture and the patient may be considered for treatment. Re-Screen 2-5 years. NOTE: T-SCORE=SD OF THE YOUNG ADULT MEAN.
== END | disposition home or self-care (01) ==
LOC: RADBDWWP 06:55
PROVIDERS: ATTEND Family Medicine
DX: R92.8 Other abnormal and inconclusive findings on diagnostic imaging of breast (principal); M85.852 Other specified disorders of bone density and structure, left thigh; N64.4 Mastodynia; Z78.0 Asymptomatic menopausal state; Z80.3 Family history of malignant neoplasm of breast
CPT/HCPCS: 77080; 77066; 76641; G0279; 77062

== ENCOUNTER → 2023-06-04 | Outpatient (CLI) | payer MEDICARE, BC ==
[2023-06-04 12:53] VITALS: BP 135/71; PULSE 50; RESP 14; TEMP 98.2
--- NOTE | 2023-06-04 14:41 | P.PAINPG ---
PQRS Measure Charge Sheet Comment: A 66 yr old female with a history of severe and chronic neck pain secondary to cervical degenerative disc diseases and spondylosis with facet arthropathy without myelopathy presents today for neck pain evaluation. PT states she experienced 95% pain relief x 5-6 mo s/p procedure. Pain level is currently at 6/10 in intensity, constant, localized in the R lower lumbar spine, achy/ sharp in character w shooting towards the RLE. Pain is provoked by lifting and overhead reaching, vaccuming. Pain is alleviated with PT integrated w massage x 6 wks in 2019 but ineffective due to spinal stenosis, ultrasound in PT, heat, medications ([place], Neurontin), use of a cane for ambulatory assistance, CBD topicals, repositioning and rest. Oswestry axial pain score of 28. Interventional pain procedures completed include BL SI x2, LESI L4-L5, C6-C7 x1 Patient is currently on [place], Neurontin from Dr Andrade Patient denies any side effects of the medication(s), denies excessive drowsiness or sleepiness, denies suicidal ideation and reports that the current pain medication is helping to control the pain and improve activities of daily living. Patient denies any motor or sensory deficits. Patient denies any fever or night sweats, denies any change in the bowel movements or urination. Physical Examination: -Constitutional: Cooperative. Not in acute distress . - Neurologic: Cranial nerve II to XII intact. No focal neurological deficits. - Psychatric: Alert & oriented x 3. Matching mood & appropriate affect. Judgment and insight intact. - Musculoskeletal: Cervical spine: Muscle bulk/ tone/ strength in the bilateral upper extremities normal Vertebral body tenderness to palpation Spurling test positive Distraction test positive Facet loading test positive Thoracic spine Muscle bulk / tone/ strength in the bilateral paraspinal muscles normal Vertebral body tender to palpation over Facet loading test positive Lumbar spine: Motor bulk/ tone/ strength lower extremities , thigh and legs : 5/5 Deep tendon reflexes : Normal Knee Jerk. Normal Ankle Jerk . Vertebral body tenderness to palpation over L4 Lumbar Facet Loading Test positive Straight Leg Raise: positive at 30 degrees right side/ left side Gaenslen's Test positive Sacral spine : Severe tenderness over the Sacroiliac joint: right side / left side Range of motion: Flexion of the lumbar spine <60 degrees Range of motion: Extension of the lumbar spine <20 degrees Gaenslen's Test positive De's Test positive [place] test: positive right side / left side Thigh Thrust Test Sacral Thrust Test Imaging: MRI without contrast of the cervical spine 09/13/22 reviewed Assessment and plan: Chronic LBP secondary to cervical degenerative disc disease, spondylosis with facet arthropathy without myelopathy Recommendation of R paramedian SKIP L4-L5 #1. May need a series, up to 3 within a 6 mo period, for optimal pain relief. Risks, benefits of procedure discussed and pt verbalized understanding. Denies anticoagulant use or medical history of diabetes. All patient questions answered I have spent less than 30 minutes on patient care today. Dr Diaz was available by phone for the evaluation of this patient. The time was used to review the medical records including relevant urine studies and Prescription h istory (MAPs), review of the available imaging, evaluation and examination of the patient, coordination of care with the medical staff and if applicable referring physicians, as well as creation of the medical record PQRS Narrative: Smoking Status Former smoker Hx Alcohol Use (MH) Yes: RARE Home Medications: Ambulatory Orders ALPRAZolam [Xanax] 0.5 mg PO DAILY PRN 10/15/19 Levothyroxine Sodium 125 mcg PO DAILY 10/15/19 atenoloL [Atenolol] 50 mg PO BID 10/15/19 FLUoxetine HCL 40 mg PO DAILY 05/10/22 Gabapentin 300 mg PO BID 05/10/22 Omeprazole 40 mg PO BID 05/10/22 buPROPion HCL [buPROPion HCL Xl] 150 mg PO DAILY 05/10/22 HYDROcodone/APAP 7.5-325MG [[place] 7.5-325] 1 tab PO Q6HR PRN 08/07/22 Midodrine [ProAmatine] 5 mg PO DAILY 08/07/22 Controlled Substance Measures - Controlled Substance Measures Is patient prescribed a controlled substance at discharge?: No
== END ==
LOC: PNWHC3 12:33
PROVIDERS: ATTEND Specialist
DX: M50.30 Other cervical disc degeneration, unspecified cervical region (principal); M51.36 Other intervertebral disc degeneration, lumbar region; M47.812 Spondylosis without myelopathy or radiculopathy, cervical region; G89.29 Other chronic pain; Z87.891 Personal history of nicotine dependence; Z88.0 Allergy status to penicillin; Z88.8 Allergy status to other drugs, medicaments and biological substances
CPT/HCPCS: 99211

== ENCOUNTER 2023-06-14 06:53 | Day surgery (SDC) | payer MEDICARE, BC ==
[2023-06-11 15:39] VITALS: BMI 34.0
[~2023-06-14 06:53] MED LIST changes: -LIDOCAINE 1% (10MG/ML) FOR IV START INTRADERMA PRN
[2023-06-14 07:16] VITALS: TEMP 97.2
[2023-06-14] MEDS ORDERED: IOPAMIDOL M200 10 ML VIAL ONE (07:45)
[2023-06-14] MEDS ORDERED: methylPREDNISolone ACETATE 80 MG/ML 1 ML VIAL ONE (07:45)
--- NOTE | 2023-06-14 07:53 | P.PCN ---
Date of Procedure: 06/14/23 Procedure(s) Performed: PREOPERATIVE DIAGNOSIS: 1- Lumbar Degenerative Disc Diseases 2-Lumbar spondylosis with Facet arthropathy without myelopathy. POSTOPERATIVE DIAGNOSIS: 1-lumbar degenerative disc disease. 2-lumbar spondylosis with facet arthropathy without myelopathy. PROCEDURE 1. Lumbar epidural steroid injection under fluoroscopic guidance at the L4-5 level. (Fluoroscopy imaging was available in radiology department) 2. Lumbar epidurogram. ANESTHESIA: Lidocaine 1% 3 and then only. EBL: Minimal PROCEDURE INDICATION: The patient with low back pain and radiculitis symptoms unresponsive to conservative treatment. Fluoroscopy was used to optimize visualization of the needle placement and to maximize safety. PROCEDURE DESCRIPTION / TECHNIQUE: The patient was seen and identified in the preoperative area. Risks, benefits, complications including but not limited to infections ,bleeding ,allergic reaction to the medications ,nerve damage and not complete pain releife , and alternatives were discussed with the patient. The patient agreed to proceed with the procedure and signed the consent, and vital signs were stable. Patient was taken to the OR and time out was completed. The patient was placed in the prone position on procedure table and a pillow was placed under the abdomen to reduce lumbar lordosis. The lumbosacral area was prepped and draped in the usual sterile fashion.ere closely monitored during the procedure. Vital signs was monitered during the entire procedure. Using anterior-posterior fluoroscopy, the L4-5 interlaminar space was identified and the skin over this site was marked and then infiltrated with 1% lidocaine subcutaneously. Subsequently, a 20-gauge Tuohy epidural needle was inserted ( Right paramedial ) and advanced toward the epidural space using the ``Loss of resistance technique and guided by AP and lateral fluoroscopy. The correct needle position in the epidural space was verified with the injection of 2 mL of the water soluble contrast dye Isovue 200 contrast and observing an excellent epidurogram with the epidural spread of the dye, after negative aspiration for blood and CSF and in the absence of paresthesias. Again after negative aspiration, a 6 ml mixture containing 60 mg of Depo-medrol ( Preservetive Free ), and 2 ml of preservative free Normal Saline, and 2 ml of preservative free lidocaine 1% solution was injected and a washout of epidurogram was seen. Needle was withdrawn intact, skin was cleansed, and bandages were applied. COMPLICATIONS: None DISPOSITION / PLANS: The patient was placed in a supine position and transferred to the recovery area in a stable condition for observation. There was no evidence of lower extremity motor or sensory deficit after the procedure. Patient was discharged from the recovery room after meeting discharge criteria. Home discharge instructions were given to the patient by the staff. The patient was reexamined prior to discharge. The patient will schedule a follow up in the clinic in 2-4 weeks.
[2023-06-14 07:59] VITALS: BP 124/73; PULSE 51; RESP 17
--- NOTE | 2023-06-14 10:13 | FL ---
Intraoperative/procedural fluoroscopic services were provided. Total fluoroscopy time is 4.3 seconds with a total of 1 submitted images to PACS. Please see the operative/procedural note for further deta ils. DAP: [id number] mGym2
== END 2023-06-14 08:12 | disposition home or self-care (01) ==
LOC: ORPAIN 06:53
PROVIDERS: ATTEND Specialist
DX: M51.16 Intervertebral disc disorders with radiculopathy, lumbar region (principal); M47.26 Other spondylosis with radiculopathy, lumbar region; Z88.0 Allergy status to penicillin
CPT/HCPCS: 62323; J1040; Q9966

== ENCOUNTER → 2024-03-13 | Outpatient (CLI) | payer MEDICARE, BC ==
[2024-03-13 13:13] VITALS: BP 132/88; PULSE 59; RESP 16
--- NOTE | 2024-03-13 14:53 | XR ---
Lumbar spine. HISTORY: Back pain. COMPARISON: None. TECHNIQUE: 3 views of the lumbar spine were obtained FINDINGS: The lumbar vertebral segments are normal in height and is no evidence of fracture. There is a grade 1 anterolisthesis of L4 and L5. There is moderate to marked degenerative disc disease from L1 through L5 where there is moderate to m arked disc space narrowing and moderate spondylosis. There is mild narrowing and mild degenerative di sease at the L5-S1 level. Visualized sacrum and SI joints are normal. IMPRESSION: 1. No lumbar spine fracture. 2. Grade 1 anterolisthesis of L4 on L5. 3. Moderate to marked multilevel degenerative disc disease
--- NOTE | 2024-03-13 15:08 | P.PAINPG ---
PQRS Measure Charge Sheet Comment: A 66 yr old female with a history of severe and chronic LBP secondary to lumbar DDD, spondylosis and facet arthropathy without myelopathy presents today for evaluation s/p SKIP L4-L5 #1. Pt states she experienced 75 % pain relief x 3 mo s/p procedure. Pain level is currently at 6/10 in intensity, constant, localized in the R lower lumbar spine, achy in character w shooting towards the RLE. Pain is provoked by lifting and overhead reaching, vacuuming. Pain is alleviated with PT integrated w massage x 6 wks in 2019 but ineffective due to spinal stenosis, ultrasound while in PT, physician guided exercises and stretches daily since Nov 2023, heat, medications, use of a cane for ambulatory assistance, CBD topicals, repositioning and rest. Oswestry axial pain score of 29. Interventional pain procedures completed include BL SI x2, LESI L4-L5 x2 (May 2023), C6-C7 x1 Patient is currently on [place], Neurontin from Dr Andrade Patient denies any side effects of the medication(s), denies excessive drowsiness or sleepiness, denies suicidal ideation and reports that the current pain medication is helping to control the pain and improve activities of daily living. Patient denies any motor or sensory deficits. Patient denies any fever or night sweats, denies any change in the bowel movements or urination. Physical Examination: -Constitutional: Cooperative. Not in acute distress . - Neurologic: Cranial nerve II to XII intact. No focal neurological deficits. - Psychatric: Alert & oriented x 3. Matching mood & appropriate affect. Judgment and insight intact. - Musculoskeletal: Cervical spine: Muscle bulk/ tone/ strength in the bilateral upper extremities normal Vertebral body tenderness to palpation Spurling test positive Distraction test positive Facet loading test positive Thoracic spine Muscle bulk / tone/ strength in the bilateral paraspinal muscles normal Vertebral body tender to palpation over Facet loading test positive Lumbar spine: Motor bulk/ tone/ strength lower extremities , thigh and legs : 5/5 Deep tendon reflexes : Normal Knee Jerk. Normal Ankle Jerk . Vertebral body tenderness to palpation over L4 Lumbar Facet Loading Test positive Straight Leg Raise: positive at 30 degrees right side/ left side Gaenslen's Test positive Sacral spine : Severe tenderness over the Sacroiliac joint: right side / left side Range of motion: Flexion of the lumbar spine <60 degrees Range of motion: Extension of the lumbar spine <20 degrees Gaenslen's Test positive De's Test positive [place] test: positive right side / left side Thigh Thrust Test Sacral Thrust Test Imaging: MRI without contrast of the cervical spine 09/13/22 reviewed Lumbar xray from 2021 reviewed Assessment and plan: Chronic LBP secondary to lumbar DDD, spondylosis with facet arthropathy without myelopathy Recommendation of lumbar x ray M51.36. RTC in 3 wks for re evaluation. All patient questions answered I have spent less than 30 minutes on patient care today. Dr Diaz was available by phone for the evaluation of this patient. The time was used to review the medical records including relevant urine studies and Prescription history (MAPs), review of the available imaging, evaluation and examination of the patient, coordination of care with the medical staff and if applicable referring physicians, as well as creation of the medical record PQRS Narrative: Smoking Status Former smoker Hx Alcohol Use (MH) Yes: RARE Home Medications: Ambulatory Orders ALPRAZolam [Xanax] 0.5 mg PO DAILY PRN 10/15/19 Levothyroxine Sodium 125 mcg PO DAILY 10/15/19 atenoloL [Atenolol] 50 mg PO BID 10/15/19 FLUoxetine HCL 40 mg PO DAILY 05/10/22 Gabapentin 300 mg PO BID 05/10/22 Omeprazole 40 mg PO BID 05/10/22 buPROPion HCL [buPROPion HCL Xl] 150 mg PO DAILY 05/10/22 HYDROcodone/APAP 7.5-325MG [[place] 7.5-325] 1 tab PO Q6HR PRN 08/07/22 Midodrine [ProAmatine] 5 mg PO DAILY 08/07/22 Controlled Substance Measures - Controlled Substance Measures Is patient prescribed a controlled substance at discharge?: No
== END ==
LOC: PNWHC3 10:38
PROVIDERS: ATTEND Specialist
DX: M51.36 Other intervertebral disc degeneration, lumbar region (principal); M47.816 Spondylosis without myelopathy or radiculopathy, lumbar region; G89.29 Other chronic pain; M43.16 Spondylolisthesis, lumbar region; Z87.891 Personal history of nicotine dependence; Z88.8 Allergy status to other drugs, medicaments and biological substances; Z88.0 Allergy status to penicillin
CPT/HCPCS: 72100; G0463; 99211

== ENCOUNTER → 2024-04-09 | Outpatient (CLI) | payer MEDICARE, BC ==
--- NOTE | 2024-04-10 21:57 | MR ---
EXAMINATION TYPE: MR lumbar spine wo con DATE OF EXAM: 04/09/2024 COMPARISON: 11/13/2022 HISTORY: Low back pain into the right side CONTRAST: 0 mL intravenous Gadavist. TECHNIQUE: Multiplanar, multisequence images of the lumbar spine were acquired. FINDINGS: Cord terminates at the L1 vertebral level. L5-S1: No significant disc bulge or disc herniation. No spinal canal stenosis. Disc bulging into th e right lateral foramen is present with moderate to severe narrowing. Facet degenerative changes are present. . L4-L5: There is a grade 1 spondylolisthesis of L4 anteriorly on L5. There is narrowing of the disc he ight. Disc uncovering is present. Congenitally short pedicles are present. Some spinal canal narrowi ng without stenosis may be present. Facet hypertrophy is present. There is severe right and moderate to severe left foraminal stenosis. Some compression in the right foramen is likely present. Finding s are stable from comparison in the right foramen. Left foramen may have less stenosis than previous. Lateral canal stenosis from facet hypertrophy and ligamentum flavum laxity is present. Lateral rece sses are stenotic more so on the right.. L3-L4: There is loss of disc height to this level. Left disc bulge into the foramen is present with s evere foraminal stenosis. Correlate with the radicular symptoms. Disc bulging into the left foramen a nd spinal canal is present similar comparison. . L2-L3: Loss of disc height this level. Some central disc herniation is present with anterior thecal s ac contact. No spinal canal stenosis is present. Mild foraminal narrowing is present. L1-L2: Loss of disc height is level. No spinal canal stenosis or neural foraminal stenosis is present No spinal canal stenosis. No foraminal stenosis. . T12-L1: Disc space narrowing is present. No focal disc herniation or significant disc bulge present No spinal canal stenosis. No foraminal stenosis. . IMPRESSION: 1. Severe foraminal stenosis on the right at L5-S1 and bilaterally at L4-5, more so on the right. Cor relate with radicular symptoms. 2. Nerve root compression within the left L3-4 foramen with severe stenosis. 3. Facet hypertrophy and disc uncovering from a grade 1 spondylolisthesis at L4-5 is contributing to spinal canal stenosis including lateral recess stenosis
== END | disposition home or self-care (01) ==
LOC: RADMRIMAIN 18:49
PROVIDERS: ATTEND Specialist
DX: M43.16 Spondylolisthesis, lumbar region (principal); M51.36 Other intervertebral disc degeneration, lumbar region; M99.73 Connective tissue and disc stenosis of intervertebral foramina of lumbar region
CPT/HCPCS: 72148

== ENCOUNTER 2024-04-20 16:23 | Emergency (ER) | payer MEDICARE, BC ==
[2024-04-20 17:11] VITALS: TEMP 97.9
--- NOTE | 2024-04-20 17:18 | ED ---
General Adult HPI - General Chief complaint: Fall Stated complaint: Fall Time Seen by Provider: 04/20/24 16:36 Source: patient, EMS, RN notes reviewed Mode of arrival: EMS Limitations: no limitations - History of Present Illness Initial comments: Patient is a pleasant 68-year-old female present to the emergency department with concerns for fall. Patient tripped on a curb. Patient did strike her head. No loss of consciousness. Only mild discomfort. Unclear last tetanus immunization. Patient does have skin injuries to her right arm and left hand and forehead. Patient does have chronic neck pain. No discomfort at this time. - Related Data Home Medications Medication Instructions Recorded Confirmed ALPRAZolam [Xanax] 0.5 mg PO DAILY PRN 10/15/19 08/17/23 Levothyroxine Sodium 125 mcg PO DAILY 10/15/19 08/14/23 atenoloL [Atenolol] 50 mg PO BID 10/15/19 08/17/23 FLUoxetine HCL 40 mg PO DAILY 05/10/22 08/14/23 Gabapentin 300 mg PO BID 05/10/22 08/14/23 Omeprazole 40 mg PO BID 05/10/22 08/14/23 buPROPion HCL [buPROPion HCL Xl] 150 mg PO DAILY 05/10/22 08/14/23 HYDROcodone/APAP 7.5-325MG [[place] 1 tab PO Q6HR PRN 08/07/22 08/14/23 7.5-325] Midodrine [ProAmatine] 5 mg PO DAILY 08/07/22 08/14/23 Allergies Allergy/AdvReac Type Severity Reaction Status Date / Time dulaglutide [From [facility]] Allergy NAUSEA,VOMITING Verified 04/20/24 16:31 SWELLING OF LYPMPHNODE, HEADACHE Penicillins Allergy Rash/Hives Verified 04/20/24 16:31 Review of Systems ROS Statement: Those systems with pertinent positive or pertinent negative responses have been documented in the HPI. ROS Other: All systems not noted in ROS Statement are negative. Constitutional: Denies: fever Eyes: Denies: eye pain ENT: Denies: ear pain Respiratory: Denies: dyspnea Cardiovascular: Denies: chest pain Skin: Reports: as per HPI Neurological: Denies: weakness Past Medical History Past Medical History: CVA/TIA, Diabetes Mellitus, Hyperlipidemia, Hypertension, Osteoarthritis (OA), Sleep Apnea/CPAP/BIPAP, Thyroid Disorder Additional Past Medical History / Comment(s): MIGRAINES, spinal stenosis, questionable tia,borderline diabetic History of Any Multi-Drug Resistant Organisms: None Reported Past Surgical History: Bariatric Surgery, Breast Surgery, Section, Cholecystectomy, Joint Replacement, Orthopedic Surgery Additional Past Surgical History / Comment(s): GASTRIC BYPASS, PAIN INJECTIONS, EXCESS SKIN REMOVED FROM ABDOMEN AND ARMS, NANCY knee replacement, BILATERAL CATARACT SURGERY. breast firbroids removed x2 Past Anesthesia/Blood Transfusion Reactions: No Reported Reaction, Motion Sickness Additional Past Anesthesia/Blood Transfusion Reaction / Comment(s): "sea sick once" No blood transfusion Past Psychological History: Anxiety, Depression Smoking Status: Former smoker Past Alcohol Use History: None Reported Past Drug Use History: None Reported - Past Family History Mother Family Medical History: Cancer General Exam Limitations: no limitations General appearance: alert, in no apparent distress Head exam: Present: other (Right forehead abrasion) Eye exam: Present: normal appearance, PERRL, EOMI ENT exam: Present: normal oropharynx Neck exam: Present: normal inspection, full ROM. Absent: tenderness Respiratory exam: Present: normal lung sounds bilaterally Cardiovascular Exam: Present: regular rate, normal rhythm GI/Abdominal exam: Present: soft. Absent: tenderness Extremities exam: Present: full ROM. Absent: tenderness Neurological exam: Present: alert, oriented X3, CN II-XII intact. Absent: motor sensory deficit Expanded Neurological exam: Present: protecting the airway Speech: Present: fluid speech Cranial nerves: EOM's Intact: Normal Motor strength exam: RUE: 5, LUE: 5, RLE: 5, LLE: 5 Eye Response: (4) open spontaneously Motor Response: (6) obeys commands Verbal Response: (5) oriented Psychiatric exam: Present: normal affect, normal mood Skin exam: Present: abrasion (Right hand and right forehead), other (Skin tear right elbow) Course Vital Signs 04/20/24 16:28 Temperature 97.9 F Pulse Rate 55 L Respiratory 20 Rate Blood Pressure 136/79 O2 Sat by Pulse 99 Oximetry Medical Decision Making - Medical Decision Making Was pt. sent in by a medical professional or institution (, PA, AN/SSN 2 4 OPERATOR, urgent care, hospital, or prison...) When possible be specific @ -No Did you speak to anyone other than the patient for history (EMS, parent, family, police, friend...)? What history was obtained from this source @ -No Did you review nursing and triage notes (agree or disagree)? Why? @ -I reviewed and agree with nursing and triage notes Were old charts reviewed (outside hosp., previous admission, EMS record, old EKG, old radiological studies, urgent care reports/EKG's, prison records)? Report findings @ -No old charts were reviewed Differential Diagnosis (chest pain, altered mental status, abdominal pain women, abdominal pain men, vaginal bleeding, weakness, fever, dyspnea, syncope, headache, dizziness, GI bleed, back pain, seizure, CVA, palpatations, mental health, musculoskeletal)? @ -Differential Musculoskeletal Muscular strain, contusion, ligament sprain, fracture, arthritis, septic arthritis, bursitis, cellulitis, muscle spasm, nerve compression, DVT, arterial occlusion, herpes zoster, electrolyte abnormality, tumor.... This is not meant to be in all inclusive list EKG interpreted by me (3pts min.). @ -As above X-rays interpreted by me (1pt min.). @ -None done CT interpreted by me (1pt min.). @ -CT scan of the brain shows no acute intracranial abnormality U/S interpreted by me (1pt. min.). @ -None done What testing was considered but not performed or refused? (CT, X-rays, U/S, labs)? Why? @ -None What meds were considered but not given or refused? Why? @ -None Did you discuss the management of the patient with other professionals (professionals i.e. , PA, AN/SSN 2 4 OPERATOR, lab, RT, psych nurse, professor of social work, cumulative effects analyst, teacher, banking services officer, manager case)? Give summary @ -No Was smoking cessation discussed for >3mins.? @ -No Was critical care preformed (if so, how long)? @ -No Were there social determinants of health that impacted care today? How? (Homelessness, low income, unemployed, alcoholism, drug addiction, transportati on, low edu. Level, literacy, decrease access to med. care, [place] [facility], rehab)? @ -No Was there de-escalation of care discussed even if they declined (Discuss DNR or withdrawal of care, Hospice)? DNR status @ -No What co-morbidities impacted this encounter? (DM, HTN, Smoking, COPD, CAD, Cancer, CVA, ARF, Chemo, Hep., AIDS, mental health diagnosis, sleep apnea, morbid obesity)? @ -None Was patient admitted / discharged? Hospital course, mention meds given and route, prescriptions, significant lab abnormalities, going to OR and other pertinent info. @ -Patient presents with fall. Patient does have hematoma right side. CT scan ordered secondary to age over 60. Patient reevaluated and updated. Undiagnosed new problem with uncertain prognosis? @ -No Drug Therapy requiring intensive monitoring for toxicity (Heparin, Nitro, Insulin, Cardizem)? @ -No Were any procedures done? @ -No Diagnosis/symptom? @ -Abrasions, head injury Acute, or Chronic, or Acute on Chronic? @ -Acute, acute Uncomplicated (without systemic symptoms) or Complicated (systemic symptoms)? @ -Default Side effects of treatment? @ -No Exacerbation, Progression, or Severe Exacerbation? @ -No Poses a threat to life or bodily function? How? (Chest pain, USA, CT, pneumonia, PE, COPD, DKA, ARF, appy, cholecystitis, CVA, Diverticulitis, Homicidal, Suicidal, threat to staff... and all critical care pts) @ -No Disposition Clinical Impression: Fall, Head injury, Abrasion Disposition: HOME SELF-CARE Condition: Stable Instructions (If sedation given, give patient instructions): Head Injury (ED), Abrasion (ED), Skin Tear (ED) Additional Instructions: Twice daily wash all abrasions with soap and water, apply antibiotic ointment and keep bandaged. [id number] Tylenol as needed. Please do follow-up with your primary care physician in the next couple of days for recheck. Return for confusion, weakness, vomiting, visual changes, worsening symptoms or any other concerns. Is patient prescribed a controlled substance at d/c from ED?: No Referrals: Tommy Andrade MD [Primary Care Provider] - 1-2 days Time of Disposition: 18:19
--- NOTE | 2024-04-20 17:43 | CT ---
EXAMINATION TYPE: CT brain wo con CT DLP: 1086.4 mGycm, Automated exposure control for dose reduction was used. DATE OF EXAM: 04/20/2024 5:27 PM COMPARISON: 07/07/2022. CLINICAL INDICATION:Female, 68 years old with history of trauma, Fall off cement steps, head injury. TECHNIQUE: Brain: Axial CT images of the brain were obtained with coronal and sagittal reformats created and rev iewed. Contrast used: None. Oral contrast used: None. FINDINGS: Brain: Extra-axial spaces: No abnormal extra-axial fluid collections. Ventricular system: Dilatation in proportion to cerebral atrophy. Cerebral parenchyma: Cerebral atrophy. No acute intraparenchymal hemorrhage or mass effect. The gomez -white junction is well differentiated. Cerebellum: Cerebellar atrophy Mass effect: No evidence of midline shift. Intracranial vasculature: Atherosclerotic calcifications of the intracranial vessels. Soft tissues: Right scalp edema/hematomas. Calvarium/osseous structures: No depressed skull fracture. Paranasal sinuses and mastoid air cells: Mild scattered paranasal sinus disease. Visualized orbits: Orbital contents are intact. IMPRESSION: 1. No acute intracranial process. 2. Nonspecific white matter changes, likely secondary to chronic small vessel ischemic disease. 3. Right scalp edema/hematoma.
[2024-04-20] MEDS: DIPH,PERTUS(ACELL)TETVAC-LF 0.5 ML VIAL IM ONE (17:54)
[2024-04-20 19:18] VITALS: BP 131/80; PULSE 53; RESP 16
== END 2024-04-20 18:45 | disposition home or self-care (01) ==
LOC: EC 16:23
DX: S60.511A Abrasion of right hand, initial encounter (principal); S00.81XA Abrasion of other part of head, initial encounter; Z87.891 Personal history of nicotine dependence; Z88.0 Allergy status to penicillin; Z88.2 Allergy status to sulfonamides; Z23 Encounter for immunization; W01.0XXA Fall on same level from slipping, tripping and stumbling without subsequent striking against object, initial encounter
CPT/HCPCS: 70450; 90471; 90715; 99284

== ENCOUNTER → 2024-05-13 | Outpatient (CLI) | payer MEDICARE, BC ==
--- NOTE | 2024-05-13 20:28 | MR ---
EXAMINATION TYPE: MR cervical spine wo con DATE OF EXAM: 05/13/2024 7:00 PM CLINICAL INDICATION:Female, 68 years old with history of M54.12 CERVICAL NEURITIS M50.90 CERVICAL DDD ; PHH, Headaches, weakness arms/legs causing falling COMPARISON: 09/13/2022. TECHNIQUE: Multi planar, multi sequence imaging was performed utilizing: T1-weighted, T2-weighted, an d turbo inversion recovery imaging of the cervical spine. IV Contrast: cc (none if empty) FINDINGS: Alignment: The cervical vertebral bodies have preserved heights. Alignment is within normal limits gi eun patient positioning. Bones: Bone signal is within normal limits. Multilevel degenerative disc disease is noted and most p ronounced at the C3-C7 vertebral levels. Cord: The spinal cord is unremarkable with regards to their signal intensity and morphology. Discs: Intervertebral disc signal is maintained. C2-C3: A disc osteophyte complex is present which minimally narrows the ventral subarachnoid space. No neural foraminal stenosis. C3-C4: A disc osteophyte complex is present with moderate spinal canal stenosis. Bilateral facet and uncovertebral joint arthropathy are present with moderate bilateral neural foraminal stenosis. C4-C5: A disc osteophyte complex is present with moderate spinal canal stenosis. Bilateral facet and uncovertebral joint arthropathy are present with moderate to severe bilateral neural foraminal steno sis. C5-C6: A disc osteophyte complex is present with mild spinal canal stenosis. Bilateral facet and unc overtebral joint arthropathy are present with moderate to severe bilateral neural foraminal stenosis. C6-C7: A disc osteophyte complex has mildly progressed in larger with moderate to severe spinal canal stenosis. Bilateral facet and uncovertebral joint arthropathy are present with moderate to severe l eft and moderate right neural foraminal stenosis. C7-T1: No significant disc pathology. The spinal canal is patent. No neural foraminal stenosis. Other: None. IMPRESSION: 1. Mild progression of disc bulging at C6-C7 with moderate to severe spinal canal stenosis. 2. Similar C3-C4, and C4-C5 moderate spinal canal stenosis secondary to disc osteophyte complex. 3. Similar disc degeneration with associated osteoarthritic changes with moderate to severe bilatera l neural foraminal stenosis throughout the spine, worse at C4-C5 and C5-C6 bilaterally and left C6-C7 .
== END | disposition home or self-care (01) ==
LOC: RADMRIMAIN 18:15
PROVIDERS: ATTEND Family Medicine
DX: M54.12 Radiculopathy, cervical region (principal); M50.90 Cervical disc disorder, unspecified, unspecified cervical region; M48.02 Spinal stenosis, cervical region; M25.78 Osteophyte, vertebrae; M50.321 Other cervical disc degeneration at C4-C5 level
CPT/HCPCS: 72141

== ENCOUNTER → 2024-05-15 | Outpatient (CLI) | payer MEDICARE, BC ==
[2024-05-15 11:01] VITALS: BP 115/58; PULSE 63; RESP 16; TEMP 96.8
--- NOTE | 2024-05-15 14:51 | P.PAINPG ---
PQRS Measure Charge Sheet Comment: A 68 yr old female with a history of severe and chronic LBP secondary to lumbar DDD, spondylosis and facet arthropathy without myelopathy presents today for MRI results. Pain level is currently at 8 /10 in intensity, constant,predominantly axial, localized in the R lower lumbar spine, achy in character w occasional shooting towards the RLE. Pain is provoked by lifting and overhead reaching, vacuuming. Pain is alleviated with PT integrated w massage x 6 wks in 2019 but ineffective due to spinal stenosis, ultrasound while in PT, physician guided exercises and stretches daily since Nov 2023, heat, medications, use of a cane for ambulatory assistance, CBD topicals, repositioning and rest. Oswestry axial pain score of 29. Interventional pain procedures completed include BL SI x2, LESI L4-L5 x2 (May 2023), C6-C7 x1 Patient is currently on [place], Neurontin from Dr Andrade Patient denies any side effects of the medication(s), denies excessive drowsiness or sleepiness, denies suicidal ideation and reports that the current pain medication is helping to control the pain and improve activities of daily living. Patient denies any motor or sensory deficits. Patient denies any fever or night sweats, denies any change in the bowel movements or urination. Physical Examination: -Constitutional: Cooperative. Not in acute distress . - Neurologic: Cranial nerve II to XII intact. No focal neurological deficits. - Psychatric: Alert & oriented x 3. Matching mood & appropriate affect. Judgment and insight intact. - Musculoskeletal: Cervical spine: Muscle bulk/ tone/ strength in the bilateral upper extremities normal Vertebral body tenderness to palpation Spurling test positive Distraction test positive Facet loading test positive Thoracic spine Muscle bulk / tone/ strength in the bilateral paraspinal muscles normal Vertebral body tender to palpation over Facet loading test positive Lumbar spine: Motor bulk/ tone/ strength lower extremities , thigh and legs : 5/5 Deep tendon reflexes : Normal Knee Jerk. Normal Ankle Jerk . Vertebral body tenderness to palpation over L4 Lumbar Facet Loading Test positive Straight Leg Raise: positive at 30 degrees right side/ left side Gaenslen's Test positive Sacral spine : Severe tenderness over the Sacroiliac joint: right side / left side Range of motion: Flexion of the lumbar spine <60 degrees Range of motion: Extension of the lumbar spine <20 degrees Gaenslen's Test positive De's Test positive [place] test: positive right side / left side Thigh Thrust Test Sacral Thrust Test Imaging: MRI without contrast of the cervical spine 09/13/22 reviewed Lumbar xray from 2021 reviewed MRI non contrast of the lumbar spine from 04/09/24 reviewed Assessment and plan: Chronic LBP secondary to lumbar DDD, spondylosis with facet arthropathy without myelopathy Recommendation of SKIP L4-L5 #1. May need a series of injections for optim al pain relief. Risks, benefits of procedure discussed and pt verbalized understanding. All patient questions answered I have spent less than 30 minutes on patient care today. Dr Diaz was availa ble by phone for the evaluation of this patient. The time was used to review the medical records including relevant urine studies and Prescription history (MAPs), review of the available imaging, evaluation and examination of the patient, coordination of care with the medical staff and if applicable referring physicians, as well as creation of the medical record PQRS Narrative: Smoking Status Former smoker Hx Alcohol Use (MH) Yes: RARE Home Medications: Ambulatory Orders ALPRAZolam [Xanax] 0.5 mg PO DAILY PRN 10/15/19 Levothyroxine Sodium 125 mcg PO DAILY 10/15/19 atenoloL [Atenolol] 50 mg PO BID 10/15/19 FLUoxetine HCL 40 mg PO DAILY 05/10/22 Gabapentin 300 mg PO BID 05/10/22 Omeprazole 40 mg PO BID 05/10/22 buPROPion HCL [buPROPion HCL Xl] 150 mg PO DAILY 05/10/22 HYDROcodone/APAP 7.5-325MG [[place] 7.5-325] 1 tab PO Q6HR PRN 08/07/22 Midodrine [ProAmatine] 5 mg PO DAILY 08/07/22 diazePAM [Valium] 5 mg PO DAILY PRN 1 Days #2 tab 05/15/24 Controlled Substance Measures - Controlled Substance Measures Is patient prescribed a controlled substance at discharge?: No
== END ==
LOC: PNWHC3 10:05
PROVIDERS: ATTEND Specialist
DX: M51.36 Other intervertebral disc degeneration, lumbar region (principal); M47.816 Spondylosis without myelopathy or radiculopathy, lumbar region; Z87.891 Personal history of nicotine dependence; Z88.0 Allergy status to penicillin; Z88.8 Allergy status to other drugs, medicaments and biological substances
CPT/HCPCS: 99211

== ENCOUNTER 2024-06-10 10:49 | Day surgery (SDC) | payer MEDICARE, BC ==
[2024-06-06 16:03] VITALS: BMI 27.1
[2024-06-10 11:19] VITALS: PULSE 61; RESP 16; TEMP 97
[2024-06-10] MEDS ORDERED: IOPAMIDOL M200 10 ML VIAL ONE (12:37)
[2024-06-10] MEDS ORDERED: methylPREDNISolone ACETATE 40 MG/ML 1 ML VIAL ONE (12:37)
--- NOTE | 2024-06-10 12:42 | P.PCN ---
Date of Procedure: 06/10/24 Description of Procedure: PREOPERATIVE DIAGNOSIS: lumbar radiculopathy POSTOPERATIVE DIAGNOSIS: Lumbar radiculopathy PROCEDURE 1. Lumbar epidural steroid injection under fluoroscopic guidance at the L4-L5 level. 2. Lumbar epidurogram. Imaging: Fluoroscopy was used, images where saved to the medical record ANESTHESIA: Patient re-evaluated immediately prior to sedation local only EBL: Minimal PROCEDURE INDICATION: The patient with low back pain and radiculitis symptoms unresponsive to conservative treatment. Fluoroscopy was used to optimize visualization of the needle placement and to maximize safety. PROCEDURE DESCRIPTION / TECHNIQUE: The patient was seen and identified in the preoperative area. Risks, benefits, complications including but not limited to infections, bleeding, allergic reaction to medications, nerve damage and incomplete pain relief, as well as alternatives to the procedure were discussed with the patient. The patient agreed to proceed with the procedure and signed the consent. IV was started if indicated above, and vital signs were stable. Patient was taken to the OR and time out was completed. The patient was placed in the prone position on procedure table and a pillow was placed under the abdomen to reduce lumbar lordosis. The lumbosacral area was prepped and draped in the usual sterile fashion. Vitals were closely monitored during the procedure. Using anterior-posterior fluoroscopy, the [id number] space was identified and the skin over this site was marked and then infiltrated with 1% lidocaine subcutaneously. Subsequently, a 20-gauge Tuohy epidural needle was inserted and advanced toward the epidural space using the Loss of resistance technique and guided by AP and lateral fluoroscopy. The correct needle position in the epidural space was verified with the injection of 1 mL of Omnipaque 180 contrast to observe an acceptable epidurogram, after negative aspiration for b lood and CSF and in the absence of paresthesias. Again after negative aspiration, a 3 ml mixture containing 40mg of depomedrol and 2 ml of preservative free Normal Saline was injected and a washout of epidurogram was seen. Needle was withdrawn intact, skin was cleansed, and bandages were applied. COMPLICATIONS: None DISPOSITION / PLANS: The patient was placed in a supine position and transferred to the recovery area in a stable condition for observation. There was no evidence of lower extremity motor or sensory deficit after the procedure. Sheryl ent was discharged from the recovery room after meeting discharge criteria. Home discharge instructions were given to the patient by the staff. The patient was reexamined prior to discharge. The patient will follow up as directed.
[2024-06-10 12:48] VITALS: BP 148/66
--- NOTE | 2024-06-10 13:57 | FL ---
Fluoroscopy History: M54.16 LUMBAR RADICULOPATHY Lumbar Radiculopathy Dr. Chavira Fl time- 4.1 sec Dap- [id number] mGym2
== END 2024-06-10 13:05 | disposition home or self-care (01) ==
LOC: ORPAIN 10:49
PROVIDERS: ATTEND Hospitalist
DX: M54.16 Radiculopathy, lumbar region (principal); Z88.0 Allergy status to penicillin; Z88.8 Allergy status to other drugs, medicaments and biological substances
CPT/HCPCS: 62323; Q9966; J1010

== ENCOUNTER 2024-11-30 13:26 | Inpatient (IN) | payer MEDICARE, BC ==
[2024-11-30] MEDS: MORPHINE SULFATE 4 MG/ML SYRINGE IVP STA ×3 (14:01→16:22)
[2024-11-30] MEDS: SODIUM CHLORIDE 0.9% 1,000 ML IV STA ×2 (14:01→15:49)
[2024-11-30] MEDS: KETOROLAC 15 MG/ML 1 ML VIAL IVP STA (14:02)
[2024-11-30 14:06] LABS: Basophils % (A) 0 %; Eosinophils # (A) 0.1 k/uL (0-0.7); Eosinophils % (A) 1 %; HCT 32.2 % (34.0-46.0); HGB 10.6 gm/dL (11.4-16.0); Lymphocytes # (A) 0.8 k/uL (1.0-4.8); Lymphocytes % (A) 8 %; MCH 29.2 pg (25.0-35.0); MCHC 32.8 g/dL (31.0-37.0); MCV 89.1 fL (80.0-100.0); Mean Platelet Volume 7.4; Monocytes % (A) 9 %; Neutrophils # (A) 8.6 k/uL (1.3-7.7); Neutrophils % (A) 80 %; Platelet Count 281 k/uL (150-450); RBC 3.62 m/uL (3.80-5.40); RDW 13.9 % (11.5-15.5); WBC 10.7 k/uL (3.8-10.6)
[2024-11-30] MEDS: IPRATROPIUM-ALBUTEROL 3 ML NEB INHALATION STA (14:08)
[2024-11-30 14:37] LABS: ALT 17 U/L (4-34); AST 28 U/L (14-36); African American GFR (CKD) 61 (>60 ml/min/1.73 sqM); Albumin 3.7 g/dL (3.5-5.0); Alkaline Phosphatase 73 U/L (38-126); Anion Gap 10 mmol/L; Blood Urea Nitrogen 24 mg/dL (7-17); Calcium 9.3 mg/dL (8.4-10.2); Carbon Dioxide 18 mmol/L (22-30); Chloride 93 mmol/L (98-107); Glucose 157 mg/dL (74-99); Non-African American GFR(CKD) 53 (>60 ml/min/1.73 sqM); Potassium 4.8 mmol/L (3.5-5.1); Sodium 121 mmol/L (137-145); Total Bilirubin 0.7 mg/dL (0.2-1.3); Total Protein 6.4 g/dL (6.3-8.2)
--- NOTE | 2024-11-30 15:20 | ED ---
General Adult HPI - General Chief complaint: Fall Stated complaint: SOB fell L leg injury Time Seen by Provider: 11/30/24 13:45 Source: patient, RN notes reviewed, old records reviewed Mode of arrival: wheelchair Limitations: physical limitation - History of Present Illness Initial comments: Patient is a 69-year-old female who presents emergency department after a fall. Patient states that she was walking when her knees just gave out on her. This has happened previously. Has a history of bilateral knee replacements. States the fall occurred yesterday and she is still having significant left knee pain. Presents for further evaluation at this time peer denies any chest pain or shortness of breath. Denies any abdominal pain. Denies hitting her head or loss conscious. Denies any pain or injuries from the fall. Only complaint is left knee pain with reduced range of motion secondary to pain. - Related Data Home Medications Medication Instructions Recorded Confirmed ALPRAZolam [Xanax] 0.5 mg PO DAILY PRN 10/15/19 06/06/24 Levothyroxine Sodium 125 mcg PO DAILY 10/15/19 06/06/24 atenoloL [Atenolol] 50 mg PO BID 10/15/19 06/10/24 FLUoxetine HCL 40 mg PO DAILY 05/10/22 06/06/24 Gabapentin 300 mg PO BID 05/10/22 06/06/24 Omeprazole 40 mg PO BID 05/10/22 06/06/24 buPROPion HCL [buPROPion HCL Xl] 150 mg PO DAILY 05/10/22 06/06/24 HYDROcodone/APAP 7.5-325MG [[place] 1 tab PO Q6HR PRN 08/07/22 06/06/24 7.5-325] Midodrine [ProAmatine] 5 mg PO DAILY 08/07/22 06/06/24 Fexofenadine HCl 180 mg PO DAILY PRN 06/06/24 06/06/24 Triamcinolone Acetonide 1 applic TOPICAL DAILY PRN 06/06/24 06/10/24 [Triamcinolone Acetonide 0.1% Lotion] Previous Rx's Medication Instructions Recorded diazePAM [Valium] 5 mg PO DAILY PRN 1 Days #2 tab 05/15/24 Allergies Allergy/AdvReac Type Severity Reaction Status Date / Time dulaglutide [From [facility]] Allergy NAUSEA,VOMITING Verified 11/30/24 13:28 SWELLING OF LYPMPHNODE, HEADACHE Penicillins Allergy Rash/Hives Verified 11/30/24 13:28 Review of Systems ROS Statement: Those systems with pertinent positive or pertinent negative responses have been documented in the HPI. Review of Systems: CONST: Denies fever EYES: Denies blurry vision ENT: Denies nasal congestion C/V: Denies Chest pain RESP: Denies shortness of breath GI: Denies abdominal pain : Denies dysuria SKIN: Denies rash. MSK: Endorses left knee pain NEURO: Denies headache ROS Other: All systems not noted in ROS Statement are negative. Past Medical History Past Medical History: CVA/TIA, Diabetes Mellitus, Hyperlipidemia, Hypertension, Osteoarthritis (OA), Skin Disorder, Sleep Apnea/CPAP/BIPAP, Thyroid Disorder Additional Past Medical History / Comment(s): MIGRAINES, spinal stenosis, questionable tia,borderline diabetic. AUTO IMMUNE SKIN RASH ON ARMS AND UPPER CHEST History of Any Multi-Drug Resistant Organisms: None Reported Past Surgical History: Bariatric Surgery, Breast Surgery, Section, Cholecystectomy, Joint Replacement, Orthopedic Surgery Additional Past Surgical History / Comment(s): GASTRIC BYPASS, PAIN INJECTIONS, EXCESS SKIN REMOVED FROM ABDOMEN AND ARMS, NANCY knee replacement, BILATERAL CA TARACT SURGERY. breast firbroids removed x2 Past Anesthesia/Blood Transfusion Reactions: No Reported Reaction, Motion Sickness Additional Past Anesthesia/Blood Transfusion Reaction / Comment(s): "sea sick once" No blood transfusion Past Psychological History: Anxiety, Depression Smoking Status: Former smoker Past Alcohol Use History: None Reported Past Drug Use History: None Reported - Past Family History Mother Family Medical History: Cancer General Exam - General Exam Comments Initial Comments: General: Appears in mild to moderate distress secondary to knee pain. HEAD: Normal with no signs of head trauma. EYES: PERRLA, EOMI, conjunctiva normal, no discharge. ENT: Hearing grossly intact, normal oropharynx. RESPIRATORY: Clear breath sounds bilaterally. No wheezes, rales, or rhonchi. C/V: Regular rate and rhythm. S1 and S2 auscultated, no edema, peripheral pulses 2+ and intact throughout ABD: Abd is soft, nontender, nondistended EXT: Left lower extremity chronically larger than the right lower extremity per patient. Has been like this for many years. Tenderness to palpation of the left knee in general. Reduced range of motion secondary to pain. Neurovasc intact throughout the left lower extremity. Pelvis is stable. No midline cervical, thoracic, lumbar spine tenderness to palpation. SKIN: No rashes or lesions observed on exposed skin. NEURO: Alert and oriented x 4. Cranial nerves II-XII intact. No focal sensory or strength deficits. Limitations: physical limitation Course Vital Signs 11/30/24 11/30/24 11/30/24 13:29 14:03 14:08 Temperature 97.6 F Pulse Rate 58 L 60 Respiratory 20 Rate Blood Pressure 87/55 132/81 O2 Sat by Pulse 99 Oximetry 11/30/24 11/30/24 11/30/24 14:20 14:52 15:42 Temperature Pulse Rate 64 64 60 Respiratory 17 Rate Blood Pressure 116/79 127/71 O2 Sat by Pulse 97 Oximetry Medical Decision Making - Medical Decision Making Was pt. sent in by a medical professional or institution (, [facility], MUSIC BOX MECHANIC, urgent care, hospital, or jail...) When possible be specific @ -No Did you speak to anyone other than the patient for history (EMS, parent, family, police, friend...)? What history was obtained from this source @ -No Did you review nursing and triage notes (agree or disagree)? Why? @ -I reviewed and agree with nursing and triage notes Were old charts reviewed (outside hosp., previous admission, EMS record, old EKG, old radiological studies, urgent care reports/EKG's, jail records)? Report findings @ -No old charts were reviewed Differential Diagnosis (chest pain, altered mental status, abdominal pain women, abdominal pain men, vaginal bleeding, weakness, fever, dyspnea, syncope, headache, dizziness, GI bleed, back pain, seizure, CVA, palpatations, mental health, musculoskeletal)? @ -Differential Musculoskeletal Muscular strain, contusion, ligament sprain, fracture, arthritis, septic arthritis, bursitis, cellulitis, muscle spasm, nerve compression, DVT, arterial occlusion, herpes zoster, electrolyte abnormality, tumor.... This is not meant to be in all inclusive list EKG interpreted by me (3pts min.). @ -As above X-rays interpreted by me (1pt min.). @ -Patient has a comminuted periprosthetic fracturing involving the left distal femur. Chest x-ray reveals no obvious acute cardiopulmonary process. Pelvis x- ray reveals no obvious acute injury. CT interpreted by me (1pt min.). @ -None done U/S interpreted by me (1pt. min.). @ -None done What testing was considered but not performed or refused? (CT, X-rays, U/S, labs)? Why? @ -None What meds were considered but not given or refused? Why? @ -None Did you discuss the management of the patient with other professionals (professionals i.e. Dr., PA, MUSIC BOX MECHANIC, lab, RT, psych nurse, delinquency prevention social worker, java web application developer, teacher, crime prevention police officer, case hardener)? Give summary @ -Dr. Menard reviewed the images and agreed to admit the patient to this hospital. He spoke with his partner Dr. Espinoza who will handle the case and patient will be admitted to Dr. Espinoza. I will consult medicine, Dr. Andrade for medical management. Was smoking cessation discussed for >3mins.? @ -No Was critical care preformed (if so, how long)? @ -No Were there social determinants of health that impacted care today? How? (Homelessness, low income, unemployed, alcoholism, drug addiction, transportation, low edu. Level, literacy, decrease access to med. care, senior care, rehab)? @ -No Was there de-escalation of care discussed even if they declined (Discuss DNR or withdrawal of care, Hospice)? DNR status @ -No What co-morbidities impacted this encounter? (DM, HTN, Smoking, COPD, CAD, Cancer, CVA, ARF, Chemo, Hep., AIDS, mental health diagnosis, sleep apnea, morbid obesity)? @ -None Was patient admitted / discharged? Hospital course, mention meds given and route, prescriptions, significant lab abnormalities, going to OR and other pertinent info. @ -Based on the patient's presentation and physical exam, suffered a mechanical fall at home resulting in left knee injury and pain. Patient has a history of chronic bilateral knee pain. Vitals currently within acceptable limits, despite initial low blood pressure in triage. Multiple normal blood pressure is back in the room. Patient will be administered IV analgesia medications, fluids. We will obtain generalized workup as well as screen EKG. X-rays of the chest and pelvis as well as left knee will be obtained. Patient was in agreement this plan. Laboratory studies remarkable for a hyponatremia of 121 and hypochloremia of 93. Patient has a mild leukocytosis of 10.7. Hemoglobin is 10.6. Remainder the labs unremarkable. Imaging remarkable for left periprosthetic fracture of the distal femur. Dr. Menard the on-call orthopedic surgeon has been contacted. He will review imaging and get back to me regarding management. Patient placed in a knee immobilizer. Dr. Menard reviewed the images and agreed to admit the patient to this hospital. He spoke with his partner Dr. Espinoza who will handle the case and patient will be admitted to Dr. Espinoza. I will consult medicine, Dr. Andrade for medical management. Will continue with analgesia, IV fluid hydration. Patient made n.p.o. after midnight. Undiagnosed new problem with uncertain prognosis? @ -No Drug Therapy requiring intensive monitoring for toxicity (Heparin, Nitro, Insulin, Cardizem)? @ -No Were any procedures done? @ -No Diagnosis/symptom? @ -Fall, left periprosthetic distal femur fracture, hyponatremia Acute, or Chronic, or Acute on Chronic? @ -Acute Uncomplicated (without systemic symptoms) or Complicated (systemic symptoms)? @ -Complicated Side effects of treatment? @ -None Exacerbation, Progression, or Severe Exacerbation] @ -No Poses a threat to life or bodily function? @ -Potentially, yes - Lab Data Result diagrams: 11/30/24 14:00 11/30/24 14:00 Lab Results 11/30/24 11/30/24 Range/Units 14:00 14:00 WBC 10.7 H (3.8-10.6) k/uL RBC 3.62 L (3.80-5.40) m/uL Hgb 10.6 L (11.4-16.0) gm/dL Hct 32.2 L (34.0-46.0) % MCV 89.1 (80.0-100.0) fL MCH 29.2 (25.0-35.0) pg MCHC 32.8 (31.0-37.0) g/dL RDW 13.9 (11.5-15.5) % Plt Count 281 (150-450) k/uL MPV 7.4 Neutrophils % 80 % Lymphocytes % 8 % Monocytes % 9 % Eosinophils % 1 % Basophils % 0 % Neutrophils # 8.6 H (1.3-7.7) k/uL Lymphocytes # 0.8 L (1.0-4.8) k/uL Monocytes # 1.0 (0-1.0) k/uL Eosinophils # 0.1 (0-0.7) k/uL Basophils # 0.0 (0-0.2) k/uL Sodium 121 L (137-145) mmol/L Potassium 4.8 (3.5-5.1) mmol/L Chloride 93 L (98-107) mmol/L Carbon Dioxide 18 L (22-30) mmol/L Anion Gap 10 mmol/L BUN 24 H (7-17) mg/dL Creatinine 1.08 H (0.52-1.04) mg/dL Est GFR (CKD-EPI)AfAm 61 (>60 ml/min/1.73 sqM) Est GFR (CKD-EPI)NonAf 53 (>60 ml/min/1.73 sqM) Glucose 157 H (74-99) mg/dL Calcium 9.3 (8.4-10.2) mg/dL Total Bilirubin 0.7 (0.2-1.3) mg/dL AST 28 (14-36) U/L ALT 17 (4-34) U/L Alkaline Phosphatase 73 (38-126) U/L Total Protein 6.4 (6.3-8.2) g/dL Albumin 3.7 (3.5-5.0) g/dL - EKG Data -: EKG Interpreted by Me EKG Comments: 12-lead Electrocardiogram Interpretation Note EKG was reviewed and interpreted by myself. 12-lead ECG performed at 1532 is interpreted by me as revealing normal sinus rhythm at a rate of 62 beats per minute. [place] is normal. CT interval is 200 ms, QRS durations 120 ms, QTc is 451 ms.. There were no ST or T wave abnormalities to suggest myocardial ische esteban or injury. R wave progression across the precordium was satisfactory. By my interpretation this EKG is non-diagnostic for acute ischemia. Disposition Clinical Impression: Fall, Periprosthetic fracture of knee, Hyponatremia Disposition: ADMITTED IP TO THIS [facility] Condition: Stable Referrals: Tommy Andrade MD [Primary Care Provider] - 1-2 days Time of Disposition: 16:00
--- NOTE | 2024-11-30 15:36 | XR ---
EXAMINATION TYPE: XR knee limited LT DATE OF EXAM: 11/30/2024 3:25 PM COMPARISON: None CLINICAL INDICATION: Female, 69 years old with history of pain, pain TECHNIQUE: XR knee limited LT 2 views submitted. FINDINGS/IMPRESSION: 1. Acute comminuted periprosthetic fracture involving the distal femur. There is associated soft tis lata swelling. 2. The remainder of the osseous structures appear intact. [facility], , 11/30/2024 3:34 PM
--- NOTE | 2024-11-30 15:38 | XR ---
EXAMINATION TYPE: XR chest 1V DATE OF EXAM: 11/30/2024 3:25 PM COMPARISON: None CLINICAL INDICATION: Female, 69 years old with history of fall; PHH pain TECHNIQUE: XR chest 1V Frontal view of the chest. FINDINGS: Lungs/Pleura: There is no evidence of pleural effusion, focal consolidation, or pneumothorax. Pulmonary vascularity: Unremarkable. Heart/mediastinum: Cardiomediastinal silhouette is unremarkable. Musculoskeletal: No acute osseous pathology. IMPRESSION: No acute cardiopulmonary disease/process. [facility], , 11/30/2024 3:35 PM
--- NOTE | 2024-11-30 15:54 | XR ---
EXAMINATION TYPE: XR pelvis AP view DATE OF EXAM: 11/30/2024 3:25 PM COMPARISON: None CLINICAL INDICATION: Female, 69 years old with history of fall; pain [facility] TECHNIQUE: XR pelvis AP view, examined in a single projection. FINDINGS: There is no evidence of fracture or dislocation. There is no soft tissue abnormality. No a bnormal calcifications are present. The spine appears intact. The hips appear intact. Osteophyte form ation of the superior acetabulum bilaterally with mild joint space narrowing. IMPRESSION: No acute osseous pathology. Mild degeneration changes of the hip. [facility], , 11/30/2024 3:51 PM
[2024-11-30] MEDS ORDERED: MORPHINE SULFATE 4 MG/ML SYRINGE IVP PRN (16:03)
[2024-11-30] MEDS ORDERED: NALOXONE 0.4 MG/ML 1 ML VIAL IV PRN (16:05)
--- NOTE | 2024-11-30 18:03 | CT ---
EXAMINATION TYPE: CT knee LT wo con DATE OF EXAM: 11/30/2024 5:34 PM COMPARISON: . Extremity radiograph same day. CLINICAL INDICATION: Female, 69 years old with history of fracture. operative planning.; [facility], left kn ee fx, fell 1 day ago, pain TECHNIQUE: Axial images were obtained of the CT knee LT wo con, Additional coronal and sagittal refor matted images and soft tissue and bone window were obtained for review. 3-D reconstruction was create d on a separate workstation. Contrast used: mL of , (None if empty) Oral contrast used: (None if empty) CT DLP: 280.1 mGycm, Automated exposure control for dose reduction was used. FINDINGS: Comminuted distal femur periprosthetic fracture external rotation of the knee. Posterior di sc placement of the pressure fragments. The tibia and fibula appear intact. The patella appears intac t. Streak artifact limits evaluation. Atherosclerosis of the arterial vasculature. Soft tissue swelli ng throughout this and around the knee. IMPRESSION: Comminuted periprosthetic fracture in the distal femur. The tibial plateau and other osseous structur es are felt to be intact. Streak artifact does limit evaluation however. [facility], , 11/30/2024 6:00 PM
[2024-11-30] MEDS ORDERED: ALPRAZolam 0.5 MG TAB PO PRN (19:15)
[2024-11-30] MEDS: IPRATROPIUM-ALBUTEROL 3 ML NEB INHALATION SCH (20:48)
[2024-11-30] MEDS: KETOROLAC 15 MG/ML 1 ML VIAL IVP PRN (21:26)
[2024-11-30] MEDS: PANTOPRAZOLE 40 MG TABLET PO SCH (21:26)
[2024-11-30] MEDS: GABAPENTIN 400 MG CAP PO SCH (21:26)
[2024-11-30] MEDS: atenoloL 50 MG TAB PO SCH (21:27)
[2024-11-30] MEDS: buPROPion XL 150 MG TAB.ER.24H PO SCH (22:30)
[2024-12-01] MEDS ORDERED: HEPARIN SODIUM,PORCINE 5,000 UNIT/ML 1 ML VIAL SQ SCH
[2024-12-01] MEDS: MORPHINE SULFATE 4 MG/ML SYRINGE IV PRN (03:38)
[2024-12-01] MEDS: LEVOTHYROXINE 125 MCG TAB PO SCH (06:23)
--- NOTE | 2024-12-01 08:22 | P.HPOR ---
History of Present Illness H&P Date: 12/01/24 Chief Complaint: Left knee pain Patient is a 69-year-old female with stated past medical history significant for CVA/TIA, Diabetes Mellitus, Hyperlipidemia, Hypertension, Skin Disorder, Sleep Apnea/CPAP/BIPAP, Thyroid Disorder, migraines, spinal stenosis, Osteoarthritis (OA) with bilateral knee replacements about 20 years ago, who presented to the emergency department after a fall. Patient states on 11/29/2024 they were trying to get up from their bed and their foot got stuck behind them and their knees gave out and she fell forward landing on her knees. She states she had left knee pain immediately afterwards. She denies hitting her head or loss conscious. Denies any other pain or injuries from the fall. She states her only complaint is the left knee pain with reduced range of motion secondary to pain. X-ray images in the emergency department showed left comminuted periprosthetic distal femur fracture, and poor bone quality. Laboratory studies remarkable for a hyponatremia of 121 and hypochloremia of 93, and hgb 10.6. Orthopedics was consulted and Dr. Gunnar Espinoza has agreed to manage this case. Dr. Andrade was consulted for medical management by the ER. Dr. Gunnar Espinoza and I spoke with the patient this morning who states her left knee pain and reduced range of motion secondary to pain has continued. Patient lives at home with her . Past Medical History Past Medical History: CVA/TIA, Diabetes Mellitus, Hyperlipidemia, Hypertension, Osteoarthritis (OA), Skin Disorder, Sleep Apnea/CPAP/BIPAP, Thyroid Disorder Additional Past Medical History / Comment(s): MIGRAINES, spinal stenosis, questionable tia,borderline diabetic. AUTO IMMUNE SKIN RASH ON ARMS AND UPPER CHEST History of Any Multi-Drug Resistant Organisms: None Reported Past Surgical History: Bariatric Surgery, Breast Surgery, Section, C holecystectomy, Joint Replacement, Orthopedic Surgery Additional Past Surgical History / Comment(s): GASTRIC BYPASS, PAIN INJECTIONS, EXCESS SKIN REMOVED FROM ABDOMEN AND ARMS, NANCY knee replacement, BILATERAL CATARACT SURGERY. breast firbroids removed x2 Past Anesthesia/Blood Transfusion Reactions: No Reported Reaction, Motion Sickness Additional Past Anesthesia/Blood Transfusion Reaction / Comment(s): "sea sick once" No blood transfusion Past Psychological History: Anxiety, Depression Smoking Status: Former smoker Past Alcohol Use History: None Reported Additional Past Alcohol Use History / Comment(s): STARTED SMOKING AT AGE 9, QUIT AT AGE 32, SMOKED 2PPD Past Drug Use History: None Reported - Past Family History Mother Family Medical History: Cancer Medications and Allergies Home Medications Medication Instructions Recorded Confirmed Type ALPRAZolam [Xanax] 0.5 mg PO DAILY PRN 10/15/19 11/30/24 History FLUoxetine HCL 40 mg PO DAILY 05/10/22 11/30/24 History Omeprazole 40 mg PO BID 05/10/22 11/30/24 History buPROPion HCL [buPROPion HCL Xl] 150 mg PO BID 05/10/22 11/30/24 History HYDROcodone/APAP 7.5-325MG [[place] 1 tab PO TID PRN 08/07/22 11/30/24 History 7.5-325] Fexofenadine/Pseudoephedrine 1 tab PO DAILY 11/30/24 11/30/24 History [Nazia-D 24 Hour Tablet] Gabapentin [Neurontin] 400 mg PO QID 11/30/24 11/30/24 History Ibuprofen [Motrin] 600 mg PO TID PRN 11/30/24 11/30/24 History Ipratropium-Albuterol Nebulize 3 ml INHALATION RT-QID 11/30/24 11/30/24 History [Duoneb 0.5 mg-3 mg/3 ml Soln] Levothyroxine Sodium [Synthroid] 125 mcg PO DAILY 11/30/24 11/30/24 History Ondansetron [Zofran] 4 mg PO Q8HR PRN 11/30/24 11/30/24 History amLODIPine [Norvasc] 5 mg PO DAILY 11/30/24 11/30/24 History atenoloL [Tenormin] 50 mg PO BID 11/30/24 11/30/24 History Allergies Allergy/AdvReac Type Severity Reaction Status Date / Time dulaglutide [From [facility]] Allergy NAUSEA,VOMITING Verified 11/30/24 16:49 SWELLING OF LYPMPHNODE, HEADACHE Penicillins Allergy Rash/Hives Verified 11/30/24 16:49 Physical Examination Patient was examined at bedside. Patient is resting comfortably in bed. No apparent distress. They are awake, alert and able to answer questions. A focused exam of the left lower extremity was conducted. On inspection the left lower extremity is diffusely swollen about the knee. There is a healed vertical incision over the anterior knee consistent with prior total knee arthroplasty. There is no breaks in the skin. There is no sign of erythema, or warmth. Patient has tenderness to palpation diffusely over the left knee. There left femoral nerve function is roughly intact. The patient has reduced range of motion of the left knee secondary to pain. The left calf is soft to compression. The patient is able to actively plantarflex and dorsiflex their operative ankle and toes. Their posterior tibial and dorsalis pedis pulse is 2+. Their operative foot is pink and appears well perfused with capillary refill under 2 seconds. There is no sign of compartment syndrome. Results - Labs Labs: Abnormal Lab Results - Last 24 Hours (Table) 11/30/24 11/30/24 Range/Units 14:00 14:00 WBC 10.7 H (3.8-10.6) k/uL RBC 3.62 L (3.80-5.40) m/uL Hgb 10.6 L (11.4-16.0) gm/dL Hct 32.2 L (34.0-46.0) % Neutrophils # 8.6 H (1.3-7.7) k/uL Lymphocytes # 0.8 L (1.0-4.8) k/uL Sodium 121 L (137-145) mmol/L Chloride 93 L (98-107) mmol/L Carbon Dioxide 18 L (22-30) mmol/L BUN 24 H (7-17) mg/dL Creatinine 1.08 H (0.52-1.04) mg/dL Glucose 157 H (74-99) mg/dL H & H 11/30/24 Range/Units 14:00 Hgb 10.6 L (11.4-16.0) gm/dL Hct 32.2 L (34.0-46.0) % Result Diagrams: 11/30/24 14:00 11/30/24 14:00 Assessment and Plan Assessment: Left comminuted periprosthetic distal femur fracture Left knee pain Osteopenia Hyponatremia Hypochloremia Hemoglobin of 10.6 Multiple medical conditions Plan: Dr. Gunnar Espinoza reviewed the images, examined the patient, and discussed treatment options as well as the risks of surgery this morning with the patient. Due to the patient having lack of distal bone and poor bone quality, open reduction and internal fixation would likely fail in the postoperative period. Our recommendation would be operative treatment with left distal femoral reconstruction. We discussed the procedure and potential risks and complications at length. The patient verbalized understanding of the risks of surgery and risks of complications in the postoperative period. Dr. Espinoza will plan for distal femoral reconstruction in the afternoon of 12/02/2024. We discussed with nursing staff that the patient needs to be medically optimized before surgery by medical team including treatment of abnormal electrolytes. N.p.o. after midnight. We appreciate medical team for medical management of this patient.
[2024-12-01 08:58] LABS: ALT 12 U/L (8-44); AST 21 U/L (13-35); Albumin 3.6 g/dL (3.8-4.9); Albumin/Globulin Ratio 1.57 Ratio (1.60-3.17); Alkaline Phosphatase 76 U/L (41-126); BUN/Creat Ratio 19.92 Ratio (12.00-20.00); Blood Urea Nitrogen 25.9 mg/dL (9.0-27.0); Calcium 8.6 mg/dL (8.7-10.3); Chloride 94 mmol/L (96-109); Globulin 2.3 g/dL (1.6-3.3); Glucose 115 mg/dL (70-110); Potassium 4.8 mmol/L (3.5-5.5); Sodium 124 mmol/L (135-145); Total Bilirubin 0.4 mg/dL (0.3-1.2); Total Protein 5.9 g/dL (6.2-8.2)
[2024-12-01] MEDS: amLODIPine 5 MG TAB PO SCH (09:08)
[2024-12-01] MEDS: FLUoxetine HCL 20 MG CAP PO SCH (09:08)
[2024-12-01] MEDS: LORATADINE-PSEUDOEPH 5-120 MG 1 EACH TAB.ER.12H PO SCH (09:09)
[2024-12-01 09:27] LABS: HCT 26.8 % (37.2-46.3); HGB 8.6 g/dL (12.0-15.0); MCH 28.7 pg (27.0-32.0); MCHC 32.1 g/dL (32.0-37.0); MCV 89.3 FL (80.0-97.0); Mean Platelet Volume 10.3 FL (9.5-12.2); NRBC Per 100 WBC 0 X 10*3/uL (0.00-0.01); Platelet Count 246 X 10*3/uL (140-440); RDW 14.2 % (11.5-14.5); WBC 7.26 X 10*3/uL (4.50-10.00)
[2024-12-01 10:46] LABS: Basophils # (A) 0.03 X 10*3/uL (0.00-0.10); Basophils % (A) 0.4 %; Eosinophils # (A) 0.13 X 10*3/uL (0.04-0.35); Eosinophils % (A) 1.8 %; Lymphocytes # (A) 0.88 X 10*3/uL (0.90-5.00); Lymphocytes % (A) 12.1 %; Monocytes # (A) 1.52 X 10*3/uL (0.20-1.00); Monocytes % (A) 20.9 %; Neutrophils # (A) 4.66 X 10*3/uL (1.80-7.70); Neutrophils % (A) 64.2 %; RBC Morphology Normal (Normal)
--- NOTE | 2024-12-01 10:48 | P.NPCON ---
History of Present Illness - Reason for Consult hyponatremia - History of Present Illness Reason for consultation: Hyponatremia History of present illness: Patient is a 69-year-old female seen in new consultation for hyponatremia. Sodium level 121 on admission at 2 PM November 30, 2024 and was up to 124 at 3:35 AM today. Patient came in the hospital after she sustained a fall. Patient denies losing consciousness or tripping. Patient states her legs just gave out and she fell. Patient is noted to have a femur fracture and is scheduled for surgery potentially tomorrow. She denies history of diabetes or coronary artery disease. She does admit to taking Motrin about 2-3 times a week. She does d rink 8 to 10 cups of coffee daily and 1 to 2 glasses of water daily. She does admit to pain in her back which is chronic as well as acute pain on her left knee. She received a liter bolus of normal saline and is currently receiving normal saline at 75 cc an hour. She denies use of diuretics. Denies personal history of malignancy. Vital signs are stable. General: No acute distress. HEENT: Head exam is unremarkable. LUNGS: No audible rhonchi or wheezes. HEART: Rate and Rhythm are regular. ABDOMEN: Nontender. EXTREMITITES: No edema. Past Medical History Past Medical History: CVA/TIA, Diabetes Mellitus, Hyperlipidemia, Hypertension, Osteoarthritis (OA), Skin Disorder, Sleep Apnea/CPAP/BIPAP, Thyroid Disorder Additional Past Medical History / Comment(s): MIGRAINES, spinal stenosis, questionable tia,borderline diabetic. AUTO IMMUNE SKIN RASH ON ARMS AND UPPER CHEST History of Any Multi-Drug Resistant Organisms: None Reported Past Surgical History: Bariatric Surgery, Breast Surgery, Section, Cholecystectomy, Joint Replacement, Orthopedic Surgery Additional Past Surgical History / Comment(s): GASTRIC BYPASS, PAIN INJECTIONS, EXCESS SKIN REMOVED FROM ABDOMEN AND ARMS, NANCY knee replacement, BILATERAL CATARACT SURGERY. breast firbroids removed x2 Past Anesthesia/Blood Transfusion Reactions: No Reported Reaction, Motion Sickness Additional Past Anesthesia/Blood Transfusion Reaction / Comment(s): "sea sick once" No blood transfusion Past Psychological History: Anxiety, Depression Smoking Status: Former smoker Past Alcohol Use History: None Reported Additional Past Alcohol Use History / Comment(s): STARTED SMOKING AT AGE 9, QUIT AT AGE 32, SMOKED 2PPD Past Drug Use History: None Reported - Past Family History Mother Family Medical History: Cancer Medications and Allergies Home Medications Medication Instructions Recorded Confirmed Type ALPRAZolam [Xanax] 0.5 mg PO DAILY PRN 10/15/19 11/30/24 History FLUoxetine HCL 40 mg PO DAILY 05/10/22 11/30/24 History Omeprazole 40 mg PO BID 05/10/22 11/30/24 History buPROPion HCL [buPROPion HCL Xl] 150 mg PO BID 05/10/22 11/30/24 History HYDROcodone/APAP 7.5-325MG [[place] 1 tab PO TID PRN 08/07/22 11/30/24 History 7.5-325] Fexofenadine/Pseudoephedrine 1 tab PO DAILY 11/30/24 11/30/24 History [Nazia-D 24 Hour Tablet] Gabapentin [Neurontin] 400 mg PO QID 11/30/24 11/30/24 History Ibuprofen [Motrin] 600 mg PO TID PRN 11/30/24 11/30/24 History Ipratropium-Albuterol Nebulize 3 ml INHALATION RT-QID 11/30/24 11/30/24 History [Duoneb 0.5 mg-3 mg/3 ml Soln] Levothyroxine Sodium [Synthroid] 125 mcg PO DAILY 11/30/24 11/30/24 History Ondansetron [Zofran] 4 mg PO Q8HR PRN 11/30/24 11/30/24 History amLODIPine [Norvasc] 5 mg PO DAILY 11/30/24 11/30/24 History atenoloL [Tenormin] 50 mg PO BID 11/30/24 11/30/24 History Allergies Allergy/AdvReac Type Severity Reaction Status Date / Time dulaglutide [From [facility]] Allergy NAUSEA,VOMITING Verified 11/30/24 16:49 SWELLING OF LYPMPHNODE, HEADACHE Penicillins Allergy Rash/Hives Verified 11/30/24 16:49 Physical Exam Vitals: Vital Signs Temp Pulse Pulse Resp BP BP BP 12/01/24 09:06 98.8 F 95 18 112/55 12/01/24 08:33 68 12/01/24 08:24 68 12/01/24 08:08 69 18 96/66 12/01/24 03:44 105/58 12/01/24 03:21 97.9 F 70 16 95/56 11/30/24 21:20 100/60 11/30/24 21:01 64 11/30/24 20:48 60 11/30/24 20:00 70 16 11/30/24 16:56 64 16 97/85 11/30/24 16:24 69 118/67 11/30/24 15:42 60 17 127/71 11/30/24 14:52 64 116/79 11/30/24 14:20 64 11/30/24 14:08 60 11/30/24 14:03 132/81 11/30/24 13:29 97.6 F 58 L 20 87/55 Pulse Ox 12/01/24 09:06 99 12/01/24 08:33 12/01/24 08:24 12/01/24 08:08 100 12/01/24 03:44 12/01/24 03:21 95 11/30/24 21:20 11/30/24 21:01 11/30/24 20:48 11/30/24 20:00 11/30/24 16:56 98 11/30/24 16:24 98 11/30/24 15:42 97 11/30/24 14:52 11/30/24 14:20 11/30/24 14:08 11/30/24 14:03 11/30/24 13:29 99 Intake and Output 11/30/24 12/01/24 12/01/24 22:59 06:59 14:59 Output Total 285 Balance -285 Output: Urine 285 Other: Voiding Method External Catheter Weight 70.307 kg Results - Lab Results Most recent lab results Calcium 8.6 mg/dL (8.7-10.3) L 12/01/24 03:35 12/01/24 03:35 12/01/24 03:35 Assessment and Plan Plan: Assessment: 1. Hypovolemic hyponatremia improving with normal saline. 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 2. Status post fall with left distal femur fracture. Orthopedic surgery following. 3. Benign hypertension. Plan: Maintain normal saline. Add 1200 cc fluid restriction. Encouraged oral intake, particularly protein. Check serum and urine osmolality, urine sodium level. Check TSH. Repeat sodium level this afternoon. Thank you for the consultation. I will continue to follow the patient with you during her hospital stay
[2024-12-01] MEDS: TOLVAPTAN 15 MG TABLET PO ONE (21:04)
[2024-12-02 03:17] LABS: African American GFR (CKD) 82 (>60 ml/min/1.73 sqM); Anion Gap 5 mmol/L; Blood Urea Nitrogen 21 mg/dL (7-17); Calcium 8.6 mg/dL (8.4-10.2); Carbon Dioxide 19 mmol/L (22-30); Chloride 100 mmol/L (98-107); Glucose 105 mg/dL (74-99); Non-African American GFR(CKD) 71 (>60 ml/min/1.73 sqM); Potassium 4.7 mmol/L (3.5-5.1); Sodium 124 mmol/L (137-145)
[2024-12-02] MEDS: SODIUM CHLORIDE TAB 1 GM TAB PO STA (07:51)
--- NOTE | 2024-12-02 08:07 | CONS ---
CONSULTATION HISTORY OF PRESENT ILLNESS: A 69-year-old white female came in for a consultation for orthopedic surgery. She is scheduled for tomorrow. Her hyponatremia 121 is up to 124, 125. We are going to check it tonight. Pneumonia, she remains on IV fluids with oral intake and bowel restriction. PHYSICAL EXAMINATION: GENERAL: She is sitting comfortably in bed. CARDIOVASCULAR: S1, S2. LUNGS: Clear. GI: Soft. HEMATOLOGY: Negative Homans. MUSCULOSKELETAL: Palpation over the left knee. PAST MEDICAL HISTORY: History of CVA, TIA, diabetes mellitus, dyslipidemia, hypertension, osteoarthritis, skin disorder, sleep apnea, hypothyroidism, migraines, spinal stenosis. PAST SURGICAL HISTORY: Bariatric surgery, breast surgery, , cholecystectomy, gastric bypass, cataracts removed, fibroids HOME MEDICATIONS: 1. Aricept 5 daily. 2. Fluoxetine 40 mg daily. 3. Omeprazole 40 b.i.d. 4. Wellbutrin 150 b.i.d. 5. [place] 7.5 t.i.d. 6. Vitamin D one daily. 7. Neurontin 400 q.i.d. 8. Motrin 600 t.i.d. 9. DuoNeb q.i.d. 10.Levothyroxine 125 mcg daily. 11.Norvasc 5 mg daily. 12.Tenormin 50 b.i.d. ALLERGIES: See list. PHYSICAL EXAMINATION: VITAL SIGNS: Temp 98, blood pressure is 90s to 120 over 80s, pulse 60s to 70s. PSYCH: Fair mood and affect. NEUROLOGIC: Alert and oriented x3. OPHTHALMOLOGICAL: Pupils equal, round, reactive. GI: Soft. HEMATOLOGY: Negative Homans. Hypertension, hypervolemic hyponatremia, left distal femur fracture, SIADH from pain. Continue current treatment. Encouraged oral intake, protein, fluid restriction. Check TSH. Prognosis guarded. Check electrolytes in the morning before clearance for surgery. MMODL / IJN: [id number] /
[2024-12-02 10:23] LABS: Basophils # (A) 0.06 X 10*3/uL (0.00-0.10); Basophils % (A) 0.8 %; Eosinophils # (A) 0.24 X 10*3/uL (0.04-0.35); Eosinophils % (A) 3.4 %; HCT 23.1 % (37.2-46.3); HGB 7.3 g/dL (12.0-15.0); Lymphocytes % (A) 14.1 %; MCH 28.4 pg (27.0-32.0); MCHC 31.6 g/dL (32.0-37.0); MCV 89.9 FL (80.0-97.0); Mean Platelet Volume 10.1 FL (9.5-12.2); Monocytes # (A) 1.68 X 10*3/uL (0.20-1.00); Monocytes % (A) 23.6 %; NRBC Per 100 WBC 0 X 10*3/uL (0.00-0.01); Neutrophils # (A) 4.07 X 10*3/uL (1.80-7.70); Neutrophils % (A) 57.3 %; Platelet Count 207 X 10*3/uL (140-440); RBC 2.57 X 10*6/uL (4.10-5.20); RDW 14.4 % (11.5-14.5); WBC 7.11 X 10*3/uL (4.50-10.00)
--- NOTE | 2024-12-02 10:57 | P.PN ---
Subjective Patient is seen in follow-up for hyponatremia. Received Samsca last night and a dose of sodium chloride tab this morning. Sodium level up to 128. No active complaints. Does not like the food here. Vital signs are stable. General: No acute distress. HEENT: Head exam is unremarkable. LUNGS: No audible rhonchi or wheezes. HEART: Rate and Rhythm are regular. ABDOMEN: Nontender. EXTREMITITES: No edema. Objective - Vital Signs Vital signs: Vital Signs Temp 98 F 12/02/24 06:45 Pulse 70 12/02/24 08:28 Resp 16 12/02/24 06:45 BP 96/54 12/02/24 06:45 Pulse Ox 99 12/02/24 06:45 FiO2 Intake & Output 12/01/24 12/02/24 12/02/24 18:59 06:59 18:59 Output Total 350 700 Balance -350 -700 Output: Urine 350 700 Other: Voiding Method External Catheter External Catheter # Bowel Movements 1 - Labs CBC & Chem 7: 12/02/24 02:37 12/02/24 10:13 Labs: Abnormal Lab Results - Last 24 Hours (Table) 12/01/24 12/01/24 12/01/24 Range/Units 03:35 14:44 19:38 RBC (4.10-5.20) X 10*6/uL Hgb (12.0-15.0) g/dL Hct (37.2-46.3) % MCHC (32.0-37.0) g/dL Immature Gran # (0.00-0.04) X 10*3/uL Monocytes # (0.20-1.00) X 10*3/uL Sodium 125 L 123 L (137-145) mmol/L Carbon Dioxide (22-30) mmol/L BUN (7-17) mg/dL Glucose (74-99) mg/dL Osmolality 269 L (275-295) mOsm/kg 12/02/24 12/02/24 12/02/24 Range/Units 02:37 02:37 10:13 RBC 2.57 L (4.10-5.20) X 10*6/uL Hgb 7.3 L (12.0-15.0) g/dL Hct 23.1 L (37.2-46.3) % MCHC 31.6 L (32.0-37.0) g/dL Immature Gran # 0.06 H (0.00-0.04) X 10*3/uL Monocytes # 1.68 H (0.20-1.00) X 10*3/uL Sodium 124 L 128 L (137-145) mmol/L Carbon Dioxide 19 L (22-30) mmol/L BUN 21 H (7-17) mg/dL Glucose 105 H (74-99) mg/dL Osmolality (275-295) mOsm/kg Assessment and Plan Plan: Assessment: 1. Hypovolemic hyponatremia initially improved with normal saline. 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 Urine osmolality 610. Status post Samsca and sodium chloride tab this admission. Sodium level 128 this morning. 2. Status post fall with left distal femur fracture. Orthopedic surgery following. 3. Benign hypertension. Blood pressure on the lower side. Plan: Maintain 1200 cc fluid restriction. Encouraged oral intake, particularly protein. Follow-up TSH. Check a.m. cortisol level. Add sodium chloride tab twice daily. Repeat labs in the morning. Stop amlodipine.
[2024-12-02] MEDS: ACETAMINOPHEN TAB 325 MG TAB PO PRN (18:04)
--- NOTE | 2024-12-02 18:21 | P.PN ---
Progress Note - Text Progress Note Date: 12/02/24 Patient seen and examined today. We had planned for revision of her periprosthetic distal femur fracture, but her hemoglobin dropped to 7.3. I discussed her case with anesthesia who would like to transfuse her 2 units in order to better medically optimize her for a big revision surgery. We will plan for surgery if she is medically stable.
[2024-12-02 20:17] LABS: ALT 12 U/L (4-34); AST 22 U/L (14-36); Albumin 2.8 g/dL (3.5-5.0); Albumin/Globulin Ratio 1.2; Alkaline Phosphatase 62 U/L (38-126); Globulin 2.4 g/dL; Total Bilirubin 0.6 mg/dL (0.2-1.3); Total Protein 5.2 g/dL (6.3-8.2)
[2024-12-02 20:43] LABS: T4, Free (Free Thyroxine) 0.91 ng/dL (0.78-2.19)
[2024-12-02] MEDS: SODIUM CHLORIDE TAB 1 GM TAB PO SCH (20:55)
--- NOTE | 2024-12-02 21:58 | P.PN ---
Progress Note - Text Progress Note Date: 12/02/24 I am covering for Dr. Tommy Andrade today who called me this evening not feeling well. Interval history: Plan for patient to have revision of her periprosthetic distal femur fracture. Plan is for . Patient is awaiting transfer 2 units of blood for hemoglobin of 7.3. The fracture occurred secondary to fall. Tolerating diet. Patient also has been treated for hyponatremia. Sodium up to 128 this morning. [Some other patient is vital signs are recorded from this afternoon showing a fever of 103.6. I did confirm with the charge nurse there waiting for that person to take off that documentation] Active Medications Acetaminophen (Acetaminophen Tab 325 Mg Tab) 650 mg PO Q6HR PRN PRN Reason: Mild Pain or Fever > 100.5 Last Admin: 12/02/24 18:04 Dose: 650 mg Albuterol/Ipratropium (Ipratropium-Albuterol 3 Ml Neb) 3 ml INHALATION RT-QID [facility] Last Admin: 12/02/24 15:22 Dose: 3 ml Alprazolam (Alprazolam 0.5 Mg Tab) 0.5 mg PO DAILY PRN PRN Reason: ANXIETY Atenolol (Atenolol 50 Mg Tab) 50 mg PO BID [facility] Last Admin: 12/02/24 20:55 Dose: 50 mg Bupropion HCl (Bupropion Xl 150 Mg Tab.Er.24h) 150 mg PO BID [facility] Last Admin: 12/02/24 20:55 Dose: 150 mg Fluoxetine HCl (Fluoxetine Hcl 20 Mg Cap) 40 mg PO DAILY [facility] Last Admin: 12/02/24 10:18 Dose: 40 mg Gabapentin (Gabapentin 400 Mg Cap) 400 mg PO QID [facility] Last Admin: 12/02/24 18:00 Dose: 400 mg Ketorolac Tromethamine (Ketorolac 15 Mg/Ml 1 Ml Vial) 15 mg IVP Q6HR PRN PRN Reason: Moderate Pain (Scale 4 to 6) Stop: 12/03/24 16:07 Last Admin: 12/02/24 17:59 Dose: 15 mg Levothyroxine Sodium (Levothyroxine 125 Mcg Tab) 125 mcg PO 0630 [facility] Last Admin: 12/02/24 10:19 Dose: 125 mcg Loratadine/Pseudoephedrine Sulfate (Loratadine-Pseudoeph 5-120 Mg 1 Each Tab.Er.12h) 1 each PO BID [facility] Last Admin: 12/02/24 20:55 Dose: 1 each Morphine Sulfate (Morphine Sulfate 4 Mg/Ml Syringe) 4 mg IV Q4HR PRN PRN Reason: Severe Pain (Scale 7 to 10) Last Admin: 12/02/24 20:55 Dose: 4 mg Naloxone HCl (Naloxone 0.4 Mg/Ml 1 Ml Vial) 0.2 mg IV Q2M PRN PRN Reason: Opioid Reversal Ondansetron HCl (Ondansetron 4 Mg/2 Ml Vial) 4 mg IVP Q8HR PRN PRN Reason: Nausea And Vomiting Pantoprazole Sodium (Pantoprazole 40 Mg Tablet) 40 mg PO BID [facility] Last Admin: 12/02/24 20:55 Dose: 40 mg Sodium Chloride (Sodium Chloride Tab 1 Gm Tab) 1 gm PO BID [facility] Last Admin: 12/02/24 20:55 Dose: 1 gm On examination: VITAL SIGNS: [99.1, 79, 18, 100/58, 98% room air] GENERAL APPEARANCE: Average build. Lying in bed, not in distress. HEENT: Normal external appearance of nose and ear. Oral cavity normal EYES: Pupils equal. Conjunctiva normal. NECK: JVD not raised. Mass not palpable. RESPIRATORY: Respiratory effort normal. Lungs clear to auscultation. CARDIOVASCULAR: First and second sounds normal. No edema. ABDOMEN: Soft. Liver and spleen not palpable. No tenderness. No mass palpable. PSYCHIATRY: Alert and oriented x3. Mood and affect normal. Musculoskeletal: OA. INVESTIGATIONS, reviewed in the clinical context: December 02: White count 7.1 hemoglobin 7.3 platelets 2 7 sodium 120 4 repeat 128 potassium 4.7 creatinine 0.84 Assessment plan: -Left comminuted periprosthetic distal femur fracture secondary to fall Probable surgery on by Dr. Espinoza -Hypovolemic hyponatremia: Improving Treated with normal saline. Received Samsca. And sodium chloride. -Hypothyroid Synthroid 125 mcg a day -Essential hypertension Tenormin 50 mg twice daily. -GERD Omeprazole 40 mg twice daily -Depression anxiety Bupropion XL 150 g twice daily. Prozac 40 mg a day. -COPD DuoNeb -Anemia hemoglobin 7.3 Blood transfusion ordered per anesthesia to optimize preoperatively. -Full code
[2024-12-03 09:01] LABS: African American GFR (CKD) >90 (>60 ml/min/1.73 sqM); Anion Gap 6 mmol/L; Blood Urea Nitrogen 14 mg/dL (7-17); Calcium 9.1 mg/dL (8.4-10.2); Carbon Dioxide 23 mmol/L (22-30); Chloride 101 mmol/L (98-107); Glucose 108 mg/dL (74-99); Non-African American GFR(CKD) 84 (>60 ml/min/1.73 sqM); Potassium 4.6 mmol/L (3.5-5.1); Sodium 130 mmol/L (137-145)
--- NOTE | 2024-12-03 10:59 | P.PN ---
Subjective Patient is seen in follow-up for hyponatremia. Sodium level 130. Status post blood transfusions overnight. No active bleeding. Vital signs are stable. General: No acute distress. HEENT: Head exam is unremarkable. LUNGS: No audible rhonchi or wheezes. HEART: Rate and Rhythm are regular. ABDOMEN: Nontender. EXTREMITITES: No edema. Objective - Vital Signs Vital signs: Vital Signs Temp 97.9 F 12/03/24 07:02 Pulse 74 12/03/24 08:42 Resp 16 12/03/24 07:02 BP 119/82 12/03/24 07:02 Pulse Ox 100 12/03/24 07:02 FiO2 Intake & Output 12/02/24 12/03/24 12/03/24 18:59 06:59 18:59 Intake Total 1069 Output Total 200 700 Balance -200 1069 -700 Intake: Blood Product 589 Rc As-1 Unit 310 [id number] Rc Pheresis As-3 Unit 279 [id number] Other 480 Output: Urine 200 700 Other: Voiding Method External Catheter External Catheter External Catheter # Bowel Movements 1 - Labs CBC & Chem 7: 12/02/24 02:37 12/03/24 07:57 Labs: Abnormal Lab Results - Last 24 Hours (Table) 12/02/24 12/02/24 12/03/24 Range/Units 02:37 18:10 07:57 Sodium 124 L 130 L (137-145) mmol/L Carbon Dioxide 19 L (22-30) mmol/L BUN 21 H (7-17) mg/dL Glucose 105 H 108 H (74-99) mg/dL Total Protein 5.2 L (6.3-8.2) g/dL Albumin 2.8 L (3.5-5.0) g/dL TSH 9.050 H (0.465-4.680) mIU/L Crossmatch See Detail Assessment and Plan Plan: Assessment: 1. Hypovolemic hyponatremia initially improved with normal saline. 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 Urine osmolality 610. Cortisol level not low. Status post Samsca and sodium chloride tab this admission. Sodium level 130 this morning. 2. Status post fall with left distal femur fracture. Orthopedic surgery following. 3. Benign hypertension. Controlled. 4. Hypothyroidism maintained on levothyroxine. Plan: Maintain 1200 cc fluid restriction. Encouraged oral intake, particularly protein. Maintain sodium chloride tabs. Repeat labs in the morning. Amlodipine discontinued as blood pressure was too low.
[2024-12-03 11:07] LABS: Basophils # (A) 0.1 k/uL (0-0.2); Basophils % (A) 1 %; Eosinophils # (A) 0.3 k/uL (0-0.7); Eosinophils % (A) 5 %; HCT 27.9 % (34.0-46.0); HGB 9.6 gm/dL (11.4-16.0); Lymphocytes # (A) 0.7 k/uL (1.0-4.8); Lymphocytes % (A) 11 %; MCH 30.1 pg (25.0-35.0); MCHC 34.3 g/dL (31.0-37.0); MCV 87.7 fL (80.0-100.0); Mean Platelet Volume 7.8; Monocytes % (A) 17 %; Neutrophils # (A) 3.6 k/uL (1.3-7.7); Neutrophils % (A) 62 %; Platelet Count 216 k/uL (150-450); RBC 3.18 m/uL (3.80-5.40); WBC 5.8 k/uL (3.8-10.6)
--- NOTE | 2024-12-03 13:13 | P.PN ---
Progress Note - Text Progress Note Date: 12/03/24 I am covering for Dr. Tommy Andrade today who called me this evening not feeling well. Interval history: Plan for patient to have revision of her periprosthetic distal femur fracture. Plan is for . Patient is awaiting transfer 2 units of blood for hemoglobin of 7.3. The fracture occurred secondary to fall. Tolerating diet. Patient also has been treated for hyponatremia. Sodium up to 128 this morning. [Some other patient is vital signs are recorded from this afternoon showing a fever of 103.6. I did confirm with the charge nurse there waiting for that person to take off that documentation] December 03: Sitting up in bed. Comfortable. Received 2 units of blood overnight. N.p.o. after midnight for surgery tomorrow. Otherwise comfortable. Active Medications Acetaminophen (Acetaminophen Tab 325 Mg Tab) 650 mg PO Q6HR PRN PRN Reason: Mild Pain or Fever > 100.5 Last Admin: 12/02/24 18:04 Dose: 650 mg Albuterol/Ipratropium (Ipratropium-Albuterol 3 Ml Neb) 3 ml INHALATION RT-QID [facility] Last Admin: 12/03/24 11:48 Dose: 3 ml Alprazolam (Alprazolam 0.5 Mg Tab) 0.5 mg PO DAILY PRN PRN Reason: ANXIETY Atenolol (Atenolol 50 Mg Tab) 50 mg PO BID [facility] Last Admin: 12/03/24 09:23 Dose: 50 mg Bupropion HCl (Bupropion Xl 150 Mg Tab.Er.24h) 150 mg PO BID [facility] Last Admin: 12/03/24 09:29 Dose: 150 mg Fluoxetine HCl (Fluoxetine Hcl 20 Mg Cap) 40 mg PO DAILY [facility] Last Admin: 12/03/24 09:22 Dose: 40 mg Gabapentin (Gabapentin 400 Mg Cap) 400 mg PO QID [facility] Last Admin: 12/03/24 13:05 Dose: 400 mg Ketorolac Tromethamine (Ketorolac 15 Mg/Ml 1 Ml Vial) 15 mg IVP Q6HR PRN PRN Reason: Moderate Pain (Scale 4 to 6) Stop: 12/03/24 16:07 Last Admin: 12/03/24 09:23 Dose: 15 mg Levothyroxine Sodium (Levothyroxine 125 Mcg Tab) 125 mcg PO 0630 [facility] Last Admin: 12/03/24 06:15 Dose: 125 mcg Loratadine/Pseudoephedrine Sulfate (Loratadine-Pseudoeph 5-120 Mg 1 Each Tab.Er.12h) 1 each PO BID [facility] Last Admin: 12/03/24 09:29 Dose: 1 each Morphine Sulfate (Morphine Sulfate 4 Mg/Ml Syringe) 4 mg IV Q4HR PRN PRN Reason: Severe Pain (Scale 7 to 10) Last Admin: 12/02/24 20:55 Dose: 4 mg Naloxone HCl (Naloxone 0.4 Mg/Ml 1 Ml Vial) 0.2 mg IV Q2M PRN PRN Reason: Opioid Reversal Ondansetron HCl (Ondansetron 4 Mg/2 Ml Vial) 4 mg IVP Q8HR PRN PRN Reason: Nausea And Vomiting Pantoprazole Sodium (Pantoprazole 40 Mg Tablet) 40 mg PO BID [facility] Last Admin: 12/03/24 09:23 Dose: 40 mg Sodium Chloride (Sodium Chloride Tab 1 Gm Tab) 1 gm PO BID [facility] Last Admin: 12/03/24 09:29 Dose: 1 gm On examination: VITAL SIGNS: 97.9, 62, 16, 119 x 82, 100% room air GENERAL APPEARANCE: Average build. Sitting in bed awake comfortable. HEENT: Normal external appearance of nose and ear. Oral cavity normal EYES: Pupils equal. Conjunctiva normal. NECK: JVD not raised. Mass not palpable. RESPIRATORY: Respiratory effort normal. Lungs clear to auscultation. CARDIOVASCULAR: First and second sounds normal. No edema. ABDOMEN: Soft. Liver and spleen not palpable. No tenderness. No mass palpable. PSYCHIATRY: Alert and oriented x3. Mood and affect normal. Musculoskeletal: OA. INVESTIGATIONS, reviewed in the clinical context: December 03: White count 5.8 hemoglobin 9.6 platelets 216. Sodium 130 December 02: White count 7.1 hemoglobin 7.3 platelets 2 7 sodium 120 4 repeat 128 potassium 4.7 creatinine 0.84 Assessment plan: -Left comminuted periprosthetic distal femur fracture secondary to fall Plan for surgery by Dr. Espinoza -Hypovolemic hyponatremia: Improving Treated with normal saline. Received Samsca. And sodium chloride. -Hypothyroid Synthroid 125 mcg a day -Essential hypertension Tenormin 50 mg twice daily. -GERD Omeprazole 40 mg twice daily -Depression anxiety Bupropion XL 150 g twice daily. Prozac 40 mg a day. -COPD DuoNeb -Anemia Received 2 units of blood.. To primary for surgery. Now a 9.6 -Full code Discussed with patient. Remains on fluid restriction. Plan for surgery tomorrow.
[2024-12-03] MEDS: KETOROLAC 15 MG/ML 1 ML VIAL IVP SCH (18:05)
[2024-12-03] MEDS: KETOROLAC 15 MG/ML 1 ML VIAL IVP PRN (18:08)
--- NOTE | 2024-12-04 07:59 | P.PN ---
Progress Note - Text Progress Note Date: 12/04/24 Patient is doing well this morning. The knee immobilizer was taken down over her left knee. There is moderate swelling but no other skin lesions or breakdown. Her thigh and calf are soft and compressible. She has no signs of infection. Will plan for surgery later today. She is to remain n.p.o. and on bedrest. Appreciate internal medicine and nephrology's assistance with perioperative medical management.
[2024-12-04 09:37] LABS: Calcium 8.9 mg/dL (8.7-10.3); Chloride 102 mmol/L (96-109); Glucose 90 mg/dL (70-110); Magnesium 1.8 mg/dL (1.5-2.4); Potassium 4.9 mmol/L (3.5-5.5); Sodium 133 mmol/L (135-145)
--- NOTE | 2024-12-04 10:21 | P.PN ---
Subjective Patient is seen in follow-up for hyponatremia. Sodium level 133. Hemoglobin improved post blood transfusion. Denies any active bleeding. No active complaints. Vital signs are stable. General: No acute distress. HEENT: Head exam is unremarkable. LUNGS: No audible rhonchi or wheezes. HEART: Rate and Rhythm are regular. ABDOMEN: Nontender. EXTREMITITES: No edema. Objective - Vital Signs Vital signs: Vital Signs Temp 98.2 F 12/04/24 07:00 Pulse 62 12/04/24 09:12 Resp 18 12/04/24 09:12 BP 107/67 12/04/24 07:00 Pulse Ox 99 12/04/24 07:00 FiO2 Intake & Output 12/03/24 12/04/24 12/04/24 18:59 06:59 18:59 Output Total 1400 550 Balance -1400 -550 Output: Urine 1400 550 Other: Voiding Method External Catheter External Catheter # Bowel Movements 1 - Labs CBC & Chem 7: 12/03/24 10:43 12/04/24 03:46 Labs: Abnormal Lab Results - Last 24 Hours (Table) 12/03/24 12/04/24 Range/Units 10:43 03:46 RBC 3.18 L (3.80-5.40) m/uL Hgb 9.6 L (11.4-16.0) gm/dL Hct 27.9 L (34.0-46.0) % Lymphocytes # 0.7 L (1.0-4.8) k/uL Sodium 133 L (135-145) mmol/L Assessment and Plan Plan: Assessment: 1. Hypovolemic hyponatremia initially improved with normal saline. 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 Urine osmolality 610. Cortisol level not low. Status post Samsca and sodium chloride tab this admission. Sodium level 133 this morning. 2. Status post fall with left distal femur fracture. Orthopedic surgery following. Surgery scheduled for today. 3. Benign hypertension. Controlled. 4. Hypothyroidism maintained on levothyroxine. Plan: Maintain 1200 cc fluid restriction. Encouraged oral intake, particularly protein. Maintain sodium chloride tabs. Repeat labs in the morning. Amlodipine discontinued as blood pressure was too low.
[2024-12-04] MEDS: IV FLUID CONTINUATION 1,000 ML IV ONE (15:18)
[2024-12-04] MEDS: DEXAMETHASONE SOD PHOSPHATE 4 MG/ML 1 ML VIAL IVP STA (16:06)
[2024-12-04] MEDS: ONDANSETRON 4 MG/2 ML VIAL IVP PRN (16:06)
[2024-12-04] MEDS ORDERED: ROCURONIUM 10 MG/ML (5 ML VIAL) IV ONE (16:40)
[2024-12-04] MEDS ORDERED: PHENYLEPHRINE-0.9% NACL SYG 1,000 MCG/10 ML SYRINGE ONE (16:40)
[2024-12-04] MEDS ORDERED: TRANEXAMIC 1,000 MG/100ML-NACL PREMIX BAG ONE (16:40)
[2024-12-04] MEDS ORDERED: fentaNYL (PF) 50 MCG/ML 2 ML AMP ONE (16:40)
[2024-12-04] MEDS ORDERED: NEOSTIGMINE 1 MG/ML 10 ML VIAL ONE (16:40)
[2024-12-04] MEDS ORDERED: ceFAZolin 1 GM/50 ML BAG (PMX) ONE (16:40)
[2024-12-04] MEDS ORDERED: PROPOFOL 10 MG/ML 20 ML VIAL IV ONE (16:40)
[2024-12-04] MEDS ORDERED: LIDOCAINE 1% INJ 10MG/ML (20 ML MDV) ONE (16:40)
[2024-12-04] MEDS ORDERED: GLYCOPYRROLATE 0.2 MG/ML 2 ML VIAL ONE (16:40)
[2024-12-04] MEDS ORDERED: SUCCINYLCHOLINE CHLORIDE 200 MG/10 ML VIAL IV ONE (16:40)
[2024-12-04] MEDS ORDERED: MIDAZOLAM 2 MG/2 ML VIAL ONE (16:40)
[2024-12-04] MEDS: SODIUM CHLORIDE 0.9% 100 ML with ceFAZolin 2,000 MG IV ONE (17:00)
[2024-12-04] MEDS: ROPIVACAINE/EPI/CLONIDINE/KET 50 ML SYRINGE MISCELLANE PRN (17:21)
[2024-12-04] MEDS: LACTATED RINGERS 1,000 ML IV SCH (18:18)
[2024-12-04] MEDS: VANCOMYCIN 1,000 MG VIAL MISCELLANE ONE (19:23)
--- NOTE | 2024-12-04 20:05 | P.OP ---
Date of Procedure: 12/04/24 Preoperative Diagnosis: 1. Left non-reconstructable periprosthetic distal femur fracture 2. Severe osteopenia 3. Preoperative hyponatremia 4. Preoperative anemia 5. History of stroke 6. Coronary artery disease 7. Type 2 diabetes Postoperative Diagnosis: Same Procedure(s) Performed: 1. Left total knee replacement revision for treatment of distal femur fracture with distal femoral replacing hinge 2. Complex removal of prosthesis, left knee 3. Application of negative pressure dressing, left knee, less than 50 cm, incision measuring 20 cm Modifier 22 for increased procedural complexity: Justification: This operation required significantly more time, work, and procedural complexity than a standard primary or revision total joint arthroplasty. Specifically the prior traumatic changes and or surgical procedure left a significantly altered surgical field with resultant scar tissue, adhesions, and altered anatomy that required a longer and more difficult and complex surgical dissection. This patient required: Extensile exposure requiring meticulous and extensive debridement due to prior failed surgery and contractures Significantly prolonged operative time challenging body habitus All of the above result in a physically and mentally challenging operative procedure that in my professional opinion necessitates a 30% increase above standard the schedule Implants: 1. [employer] GMRS 65 mm standard distal femoral component with 13 x 127 mm stem 2. Harriett MRH SM-2 baseplate with 14 x 80 mm stem 3. 20 mm tibial insert Anesthesia: UBALDO [facility] Surgeon: Gunnar Espinoza Electric Tape Slitter #1: King Ortiz Estimated Blood Loss (ml): 200 IV fluids (ml): 1,000 Urine output (ml): 450 Pathology: none sent Condition: stable Disposition: PACU Indications for Procedure: The patient is a very pleasant 69-year-old female with multiple medical problems who sustained a ground-level fall this past Sunday resulting in a left periprosthetic distal femur fracture. I reviewed her x-rays and excepted her as an admission requesting a CT scan. She had multiple medical problems including pre-existing hyponatremia and anemia. Her x-rays showed a highly comminuted and very distal periprosthetic distal femur fracture and severe osteopenia. Her CT scan showed a fracture that did not appear to be amenable to surgical repair with an open reduction and internal fixation. My recommendation was to perform a distal femur replacement type revision. I discussed this at length with the patient and her . They understand that this is a salvage procedure. The patient had both hyponatremia and preoperative anemia requiring transfusion of 2 units of packed red cells. It took several days for her to be medically optimized for surgery. She was seen both by internal medicine and nephrology who cleared the patient for surgery. I discussed the potential risks and complications at length and gave them ample time to ask questions. Risks discussed included: risks from anesthesia, superficial site surgical infection, acute and/or chronic periprosthetic joint infection, delayed wound healing, drainage, wound necrosis, instability, stiffness, stiffness requiring manipulation and/or revision surgery, damage to local blood vessels or nerves, aseptic loosening of the implants, extensor mechanism issues including disruption, patellar maltracking, avascular necrosis etc., continued or worsened knee pain, generalized dissatisfaction with surgical outcome, need for revision surgery, an inability to regain preinjury level of function, DVT, PE, other medical complications, and possibly loss of life or limb. The patient voiced their understanding that while these are the most common complications other less common complications are possible. They provided both their verbal and written consent to go forward with surgery. Operative Findings: Highly comminuted distal periprosthetic femur fracture with minimal to no bone on the implant. The patient had exceedingly poor bone quality in the femur and proximal tibia. The tibial component was well-fixed but easily removed. Description of Procedure: The patient was identified in preoperative holding and the correct operative extremity was verified and marked with a marker. I reviewed the consent form with the patient at length. All of their questions were answered. The patient was given a block by anesthesia. They were then brought back to the operating room. They were transferred onto the operating room table where a general anesthetic, preoperative antibiotics, and tranexamic acid were administered by anesthesia. A tourniquet was applied to the proximal aspect of the operative extremity. The contralateral extremity was padded under the heel and secured to the operating room table with a nonsterile blue towel and tape. The ipsilateral arm was carefully draped across the patient's chest and secured with a pillow and foam. A post was applied over the lateral aspect of the ipsilateral thigh and a bolster was placed under the ipsilateral foot. I verified that the operative extremity was stable and the knee was flexed to 90. The operative extremity was then placed in a leg condon, nonsterile drapes were applied, and the extremity was prepped and draped sterilely in the standard sterile fashion. Prior to starting surgery timeout was performed identifying the correct patient, operative extremity, and procedure. The leg was then elevated, exsanguinated with an Esmarch bandage, and the tourniquet was inflated. An anterior midline incision was made sharply with a scalpel over the prior scar extending the incision proximally and distally 1 cm to allow evaluation of normal soft tissue planes. Once the normal subfascial plane was identified proximally subfascial planes were created distally both medially and laterally. A standard medial parapatellar arthrotomy was performed. Immediately upon entering the joint there was a large hemarthrosis consistent with a acute fracture. The distal femur was highly comminuted with exceedingly poor bone quality. Due to the patient's body habitus, exceedingly poor bone quality and tenuous soft tissue surgical dissection and exposure was prolonged and tedious. I circumferentially exposed the distal femur and was able to remove both the component and the remaining bone by releasing the collateral ligaments and posterior soft tissue. This was handed off to the back table. I carefully debrided bone from the rounding soft tissue. The femur was exposed proximally and there was comminution extending into the metaphysis. A ribbon retractor was placed around the femur and a cut was made just proximal to the fracture at normal bone using a sagittal saw. The canal was then packed with a sponge and attention was turned to the tibia. The tibia was circumferentially exposed and the polyethylene liner was removed. I then carefully developed the interval between the implant and cement with a single and double-sided reciprocating saw. With the knee in extension I was able to easily debonded the implant from the cement mantle. It was removed with minimal to no bone loss. Cement was then carefully removed from the tibia with an osteotome. The canal was entered distally through the cement pedestal with a Maestro pneumatic bur. Cement was removed from the tibia carefully. I then sequentially reamed in increments until a 16 mm reamer had good fit. The tibial joint surface appeared perpendicular to the reamer handle so no freshen up cut was made. I sized and rotated the tibial baseplate. A trial baseplate and 14 mm stem was placed with excellent fit. Attention was then turned back to the femur. I sequentially reamed until I had good fit. A trial distal femur and stem were placed within the wound and different combinations of poly thickness were trialed until I had excellent stability of the knee. All trial implants were then carefully removed. The wound was thoroughly irrigated with 1 L of sterile saline using pulsatile lavage. Cement restrictor's were placed in the tibia and femur. Final implants were dispensed. I then implanted the implants in stages beginning with the tibia. 3 bags of cement with antibiotics were mixed in a centrifuge and placed into a cement gun. The tibial implant was prepared. Cement was then pressurized into the tibia with a cement gun. The implant was carefully tapped into place monitoring rotation with the tibial tubercle. The tibial implant was held in place until the cement had fully hardened. Attention was then turned to the femur. The canal was irrigated. 3 bags of cement with antibiotics were mixed in a centrifuge and placed into a cement gun. The cement gun was used to fill the femoral canal and then pressurized. The femoral implant was then carefully placed into the canal and held in correct rotation until the cement had set. Once the cement had fully set I again trialed and was happy with the stability and length. The wound was thoroughly irrigated. Final poly and implants were dispensed and placed within the knee. The knee extended fully and flexed and was stable throughout. The wound was thoroughly irrigated with sterile saline. It was soaked in a dilute Betadine rinse for several minutes. A dilute chlorhexidine rinse was performed. The wound was then thoroughly irrigated with sterile saline using 3 L with pulsatile lavage. 2 g of vancomycin powder were placed. The wound was then carefully closed in layers. A Prevena incisional wound VAC was applied over the closed wound. The patient was then awoken from her anesthetic, transferred from the OR table to a gurney, and brought to recovery having tolerated the procedure well. King Ortiz PA-C was required as a skilled project assistant due to the complexity of surgery for patient positioning, draping, exposure, retraction, closure of wound and application of dressing. PLAN: Patient is going to be admitted back to the orthopedic floor. She can weight-bear as tolerated on her operative extremity pending x-rays. 2 doses of postoperative antibiotics followed by 2 to 6 weeks of low-dose suppressive antibiotics. Her incisional wound VAC will be in place for 2 weeks and be removed at her first postoperative visit. Appreciate internal medicine and nephrology's assistance with perioperative medical management. DVT prophylaxis with Eliquis 2.5 mg BID for 4 weeks. Due to the patient soft tissue swelling I would like to check a duplex ultrasound to rule out a DVT
[2024-12-04] MEDS ORDERED: HYDROmorphone 0.5 MG/0.5 ML SYRINGE IVP PRN ×2 (20:17)
[2024-12-04] MEDS ORDERED: hydrOXYzine pamoate 25 MG CAP PO PRN (20:17)
[2024-12-04] MEDS ORDERED: bisacodyL 10 MG SUPP RECTAL PRN (20:17)
[2024-12-04] MEDS ORDERED: HYDROcodone/APAP 5-325MG 1 EACH TAB PO PRN (20:17)
[2024-12-04] MEDS ORDERED: NA PHOS,M-B/NA PHOS,DI-BA 133 ML ENEMA RECTAL PRN (20:17)
[2024-12-04] MEDS ORDERED: MAGNESIUM HYDROXIDE 2,400 MG/30 ML CUP PO PRN (20:17)
[2024-12-04] MEDS ORDERED: NALOXONE 0.4 MG/ML 1 ML VIAL IV PRN (20:17)
[2024-12-04] MEDS ORDERED: ONDANSETRON 4 MG/2 ML VIAL IVP PRN (20:17)
[2024-12-04] MEDS: HYDROmorphone 0.5 MG/0.5 ML SYRINGE IVP ONE ×3 (20:25→20:46)
[2024-12-04] MEDS: MEPERIDINE 25 MG/ML SYRINGE IVP STA (21:01)
--- NOTE | 2024-12-04 21:10 | XR ---
EXAMINATION TYPE: XR knee limited LT DATE OF EXAM: 12/04/2024 8:48 PM COMPARISON: None. CLINICAL INDICATION: Female, 69 years old with history of Evaluation for Postop abnormality and align ment, pain TECHNIQUE: 4 view(s) obtained. FINDINGS: Left knee revision is present. No joint effusion is evident. No new fractures are evident. IMPRESSION: 1. No new fractures post left knee revision [facility], , 12/04/2024 9:08 PM
[2024-12-04 21:23] LABS: Glucose,Whole Blood 250 mg/dL (70-110)
[2024-12-04] MEDS: INSULIN ASPART (NovoLOG) 100 UNIT/ML VIAL SQ ONE ×2 (21:28→22:11)
[2024-12-04] MEDS: SENNOSIDES-DOCUSATE SODIUM 1 EACH TAB PO SCH (23:04)
[2024-12-05] MEDS: HYDROmorphone 0.5 MG/0.5 ML SYRINGE IVP PRN (00:13)
--- NOTE | 2024-12-05 02:39 | US ---
EXAM: US Duplex Left Lower Extremity Veins CLINICAL HISTORY: ITS.REASON US Reason: rule out DVT TECHNIQUE: Real-time duplex ultrasound scan of the left lower extremity veins integrating B-mode two-dimensional vascular structure, Doppler spectral analysis, color flow Doppler imaging and compression. COMPARISON: No relevant prior studies available. FINDINGS: Deep veins: Unremarkable. No DVT in the visualized common femoral, femoral, proximal deep femoral or popliteal veins. The veins demonstrate normal color flow, with normal phasic flow and/or augmentation response. Limited compressions performed due to patient discomfort. Superficial veins: Unremarkable. No thrombus in the visualized great saphenous vein. Soft tissues: No acute findings. IMPRESSION: No evidence of acute DVT.
[2024-12-05] MEDS: HYDROcodone/APAP 10-325MG 1 EACH TAB PO PRN (05:12)
[2024-12-05] MEDS: MULTIVITAMINS, THERA 1 EACH TAB PO SCH (08:48)
[2024-12-05] MEDS: APIXABAN 2.5 MG TABLET PO SCH (08:48)
--- NOTE | 2024-12-05 09:43 | P.PN ---
Subjective Progress Note Date: 12/05/24 No acute events overnight. Patient is doing well this morning. The pain in their knee is mild. They have been up with physical therapy to the chair with a walker and assistance. They deny chest pain or shortness of breath. They had a Doppler ultrasound of the left lower extremity which was negative for DVT 12/05/2024. Objective - Vital Signs Vital signs: Vital Signs Temp 97.8 F 12/05/24 07:09 Pulse 56 L 12/05/24 07:09 Resp 17 12/05/24 07:09 BP 96/62 12/05/24 07:09 Pulse Ox 100 12/05/24 07:09 FiO2 Intake & Output 12/04/24 12/05/24 12/05/24 18:59 06:59 18:59 Intake Total 1000 100 Output Total 300 1430 240 Balance 700 -1330 -240 Weight 70.307 kg Intake: IV 1000 100 Output: Urine 300 1230 240 Estimated Blood Loss 200 Other: Voiding Method Indwelling Catheter - Exam Patient was examined at bedside. Patient is resting comfortably in a chair. No apparent distress. They are awake, alert and able to answer questions. On inspection the surgical wound VAC is intact, there is no drainage. The skin surrounding the wound VAC is free of erythema. There is moderate swelling in the operative thigh. Operative femoral nerve function is intact. The operative calf is soft to compression. The patient is able to actively plantarflex and dorsiflex their operative ankle and toes. Their operative foot appears well perfused. - Labs CBC & Chem 7: 12/03/24 10:43 12/04/24 03:46 Labs: Abnormal Lab Results - Last 24 Hours (Table) 12/04/24 Range/Units 21:21 POC Glucose (mg/dL) 250 H (70-110) mg/dL Assessment and Plan Assessment: Postop day #1 status post Left total knee replacement revision for treatment of distal femur fracture with distal femoral replacing hinge, complex removal of prosthesis, left knee, Application of negative pressure dressing, left knee Severe osteopenia Preoperative hyponatremia Preoperative anemia History of stroke Coronary artery disease Type 2 diabetes Plan: Weight-bear as tolerated on the operative extremity with walker and assistance at all times. Leave surgical wound VAC dressing in place. Physical therapy for gait training and mobilization. Internal medicine for perioperative medical management. Disposition: Anticipate needing to be discharged to detention facility. Plan to stay at least until tomorrow.
[2024-12-05 10:16] LABS: Basophils # (A) 0.03 X 10*3/uL (0.00-0.10); Basophils % (A) 0.3 %; Eosinophils # (A) 0.01 X 10*3/uL (0.04-0.35); Eosinophils % (A) 0.1 %; HCT 27.7 % (37.2-46.3); HGB 8.8 g/dL (12.0-15.0); Lymphocytes # (A) 0.55 X 10*3/uL (0.90-5.00); Lymphocytes % (A) 5.8 %; MCH 28.7 pg (27.0-32.0); MCHC 31.8 g/dL (32.0-37.0); MCV 90.2 FL (80.0-97.0); Mean Platelet Volume 9.7 FL (9.5-12.2); Monocytes # (A) 1.29 X 10*3/uL (0.20-1.00); Monocytes % (A) 13.6 %; NRBC Per 100 WBC 0 X 10*3/uL (0.00-0.01); Neutrophils # (A) 7.48 X 10*3/uL (1.80-7.70); Platelet Count 227 X 10*3/uL (140-440); RBC 3.07 X 10*6/uL (4.10-5.20); RDW 15.6 % (11.5-14.5); WBC 9.47 X 10*3/uL (4.50-10.00)
--- NOTE | 2024-12-05 10:33 | P.PN ---
Subjective Patient is seen in follow-up for hyponatremia. Sodium level 133 yesterday. Requesting to drink more water. Otherwise no active complaints. Vital signs are stable. General: No acute distress. HEENT: Head exam is unremarkable. LUNGS: No audible rhonchi or wheezes. HEART: Rate and Rhythm are regular. ABDOMEN: Nontender. EXTREMITITES: No edema. Objective - Vital Signs Vital signs: Vital Signs Temp 97.8 F 12/05/24 07:09 Pulse 68 12/05/24 09:58 Resp 17 12/05/24 07:09 BP 96/62 12/05/24 07:09 Pulse Ox 100 12/05/24 07:09 FiO2 Intake & Output 12/04/24 12/05/24 12/05/24 18:59 06:59 18:59 Intake Total 1000 100 Output Total 300 1430 240 Balance 700 -1330 -240 Weight 70.307 kg Intake: IV 1000 100 Output: Urine 300 1230 240 Estimated Blood Loss 200 Other: Voiding Method Indwelling Catheter Indwelling Catheter - Labs CBC & Chem 7: 12/05/24 03:06 12/04/24 03:46 Labs: Abnormal Lab Results - Last 24 Hours (Table) 12/04/24 12/05/24 Range/Units 21:21 03:06 RBC 3.07 L (4.10-5.20) X 10*6/uL Hgb 8.8 L (12.0-15.0) g/dL Hct 27.7 L (37.2-46.3) % MCHC 31.8 L (32.0-37.0) g/dL RDW 15.6 H (11.5-14.5) % Immature Gran # 0.11 H (0.00-0.04) X 10*3/uL Lymphocytes # 0.55 L (0.90-5.00) X 10*3/uL Monocytes # 1.29 H (0.20-1.00) X 10*3/uL Eosinophils # 0.01 L (0.04-0.35) X 10*3/uL POC Glucose (mg/dL) 250 H (70-110) mg/dL Assessment and Plan Plan: Assessment: 1. Hypovolemic hyponatremia initially improved with normal saline. Also component of SIADH from pain and fluoxetine. Urine osmolality 610. Cortisol level not low. [facility] and sodium chloride tab this admission. Sodium level 133 yesterday. 2. Status post fall with left distal femur fracture. Orthopedic surgery following. Status post left total knee replacement yesterday. 3. Benign hypertension. Blood pressure on the lower end. 4. Hypothyroidism maintained on levothyroxine. Plan: Discontinue fluid restriction. Encouraged oral intake, particularly protein. Maintain sodium chloride tabs. Repeat labs in the morning. Amlodipine discontinued as blood pressure was too low.
[2024-12-05 12:54] VITALS: BMI 29.2
--- NOTE | 2024-12-05 17:21 | P.PN ---
Progress Note - Text Progress Note Date: 12/05/24 I am covering for Dr. Tommy Andrade today who called me this evening not feeling well. Interval history: Plan for patient to have revision of her periprosthetic distal femur fracture. Plan is for . Patient is awaiting transfer 2 units of blood for hemoglobin of 7.3. The fracture occurred secondary to fall. Tolerating diet. Patient also has been treated for hyponatremia. Sodium up to 128 this morning. [Some other patient is vital signs are recorded from this afternoon showing a fever of 103.6. I did confirm with the charge nurse there waiting for that person to take off that documentation] December 03: Sitting up in bed. Comfortable. Received 2 units of blood overnight. N.p.o. after midnight for surgery tomorrow. Otherwise comfortable. December 05: Patient is not seen yesterday at been to the OR for a while. Underwent left total knee replacement revision. Resting in bed. Some pain. Eating well. Active Medications Acetaminophen (Acetaminophen Tab 325 Mg Tab) 650 mg PO Q6HR PRN PRN Reason: Mild Pain or Fever > 100.5 Last Admin: 12/03/24 20:10 Dose: 650 mg Hydrocodone Bitart/Acetaminophen (Hydrocodone/Apap 5-325mg 1 Each Tab) 1 each PO Q6HR PRN PRN Reason: Pain Scale 1 to 5 Hydrocodone Bitart/Acetaminophen (Hydrocodone/Apap 10-325mg 1 Each Tab) 1 each PO Q6H PRN PRN Reason: Pain Scale 6 to 10 Last Admin: 12/05/24 16:49 Dose: 1 each Albuterol/Ipratropium (Ipratropium-Albuterol 3 Ml Neb) 3 ml INHALATION RT-QID [facility] Last Admin: 12/05/24 15:58 Dose: 3 ml Alprazolam (Alprazolam 0.5 Mg Tab) 0.5 mg PO DAILY PRN PRN Reason: ANXIETY Apixaban (Apixaban 2.5 Mg Tablet) 2.5 mg PO BID [facility]; Protocol Last Admin: 12/05/24 08:48 Dose: 2.5 mg Atenolol (Atenolol 50 Mg Tab) 50 mg PO BID [facility] Last Admin: 12/05/24 08:48 Dose: 50 mg Bisacodyl (Bisacodyl 10 Mg Supp) 10 mg RECTAL DAILY PRN PRN Reason: Constipation Bupropion HCl (Bupropion Xl 150 Mg Tab.Er.24h) 150 mg PO BID [facility] Last Admin: 12/05/24 08:49 Dose: 150 mg Fluoxetine HCl (Fluoxetine Hcl 20 Mg Cap) 40 mg PO DAILY [facility] Last Admin: 12/05/24 08:48 Dose: 40 mg Gabapentin (Gabapentin 400 Mg Cap) 400 mg PO QID [facility] Last Admin: 12/05/24 12:51 Dose: 400 mg Hydromorphone HCl (Hydromorphone 0.5 Mg/0.5 Ml Syringe) 0.125 mg IVP Q3HR PRN PRN Reason: Pain Scale 1 to 3 Hydromorphone HCl (Hydromorphone 0.5 Mg/0.5 Ml Syringe) 0.5 mg IVP Q3HR PRN PRN Reason: Pain Scale 7 to 10 Last Admin: 12/05/24 00:13 Dose: 0.5 mg Hydromorphone HCl (Hydromorphone 0.5 Mg/0.5 Ml Syringe) 0.25 mg IVP Q3HR PRN PRN Reason: Pain Scale 4 to 6 Hydroxyzine Pamoate (Hydroxyzine Pamoate 25 Mg Cap) 25 mg PO Q4HR PRN PRN Reason: Nausea, Anxiety, Pain Control Lactated Ringer's (Lactated Ringers) 1,000 mls @ 20 mls/hr IV .Q24H [facility] Last Admin: 12/05/24 08:54 Dose: Not Given Ketorolac Tromethamine (Ketorolac 15 Mg/Ml 1 Ml Vial) 15 mg IVP Q6HR PRN PRN Reason: Pain Stop: 12/08/24 16:54 Last Admin: 12/04/24 13:14 Dose: 15 mg Levothyroxine Sodium (Levothyroxine 125 Mcg Tab) 125 mcg PO 0630 [facility] Last Admin: 12/05/24 07:02 Dose: 125 mcg Loratadine/Pseudoephedrine Sulfate (Loratadine-Pseudoeph 5-120 Mg 1 Each Tab.Er.12h) 1 each PO BID [facility] Last Admin: 12/05/24 08:49 Dose: 1 each Magnesium Hydroxide (Magnesium Hydroxide 2,400 Mg/30 Ml Cup) 2,400 mg PO DAILY PRN PRN Reason: Constipation Morphine Sulfate (Morphine Sulfate 4 Mg/Ml Syringe) 4 mg IV Q4HR PRN PRN Reason: Severe Pain (Scale 7 to 10) Last Admin: 12/03/24 22:13 Dose: 4 mg Multivitamins (Multivitamins, Thera 1 Each Tab) 1 each PO DAILY@1200 [facility] Last Admin: 12/05/24 08:48 Dose: 1 each Naloxone HCl (Naloxone 0.4 Mg/Ml 1 Ml Vial) 0.2 mg IV Q2M PRN PRN Reason: Opioid Reversal Ondansetron HCl (Ondansetron 4 Mg/2 Ml Vial) 4 mg IVP Q8HR PRN PRN Reason: Nausea And Vomiting Pantoprazole Sodium (Pantoprazole 40 Mg Tablet) 40 mg PO BID [facility] Last Admin: 12/05/24 08:49 Dose: 40 mg Senna/Docusate Sodium (Sennosides-Docusate Sodium 1 Each Tab) 2 each PO HS [facility] Last Admin: 12/04/24 23:04 Dose: 2 each Sodium Biphosphate/Sodium Phosphate (Na Phos,M-B/Na Phos,Di-Ba 133 Ml Enema) 133 ml RECTAL DAILY PRN PRN Reason: Constipation Sodium Chloride (Sodium Chloride Tab 1 Gm Tab) 1 gm PO BID [facility] Last Admin: 12/05/24 08:50 Dose: 1 gm On examination: VITAL SIGNS: 98, 81, 17, 94 x 50, 98% room air GENERAL APPEARANCE: Resting, comfortable HEENT: Normal external appearance of nose and ear. Oral cavity normal EYES: Pupils equal. Conjunctiva normal. NECK: JVD not raised. Mass not palpable. RESPIRATORY: Respiratory effort normal. Lungs clear to auscultation. CARDIOVASCULAR: First and second sounds normal. No edema. ABDOMEN: Soft. Liver and spleen not palpable. No tenderness. No mass palpable. PSYCHIATRY: Alert and oriented x3. Mood and affect normal. Musculoskeletal: OA. Dressing over left knee. Surgical wound VAC. INVESTIGATIONS, reviewed in the clinical context: December 05: Hemoglobin 8.8 December 03: White count 5.8 hemoglobin 9.6 platelets 216. Sodium 130 December 02: White count 7.1 hemoglobin 7.3 platelets 2 7 sodium 120 4 repeat 128 potassium 4.7 creatinine 0.84 Assessment plan: -Left comminuted periprosthetic distal femur fracture secondary to fall Left knee replacement. With surgical wound VAC. By Dr. Espinoza on December 04 -Hypovolemic hyponatremia: Improving Treated with normal saline. Received Samsca. And sodium chloride. -Hypothyroid Synthroid 125 mcg a day -Essential hypertension Tenormin 50 mg twice daily. -GERD Omeprazole 40 mg twice daily -Depression anxiety Bupropion XL 150 g twice daily. Prozac 40 mg a day. -COPD DuoNeb -Anemia Received 2 units of blood.. -Acute postprocedure blood loss anemia expected from surgery Oral iron -Full code Discussed with patient. Remains on fluid restriction. Plan for surgery tomorrow.
[2024-12-05] MEDS: FERROUS SULFATE 325 MG TAB PO SCH (17:42)
--- NOTE | 2024-12-06 08:35 | P.PN ---
Subjective Progress Note Date: 12/06/24 The patient was seen and examined this morning. She is complaining of increased pain today in her left knee. She also states that it feels a little unsteady when she gets up and ambulates but has been able to walk with a walker. She denies chest pain or shortness of breath. Objective - Vital Signs Vital signs: Vital Signs Temp 99.4 F 12/06/24 06:59 Pulse 72 12/06/24 06:59 Resp 18 12/06/24 06:59 BP 107/70 12/06/24 06:59 Pulse Ox 93 L 12/06/24 06:59 FiO2 Intake & Output 12/05/24 12/06/24 12/06/24 18:59 06:59 18:59 Intake Total 480 Output Total 490 550 Balance -490 -70 Weight 70.307 kg Intake: Oral 480 Output: Urine 490 550 Straight 550 Uretheral ([place]williams) 250 Other: Voiding Method Indwelling Catheter Bedside Commode Diaper # Voids 2 - Exam Patient is resting comfortably in her bed. She is alert and able to answer questions. A focused exam of the left lower extremity was conducted. She has diffuse swelling throughout the left leg but she states this is chronic. She has an intact wound VAC with good seal. She is able to actively plantarflex and dorsiflex her ankle and her toes. - Labs CBC & Chem 7: 12/05/24 03:06 12/04/24 03:46 Labs: Abnormal Lab Results - Last 24 Hours (Table) 12/05/24 Range/Units 03:06 RBC 3.07 L (4.10-5.20) X 10*6/uL Hgb 8.8 L (12.0-15.0) g/dL Hct 27.7 L (37.2-46.3) % MCHC 31.8 L (32.0-37.0) g/dL RDW 15.6 H (11.5-14.5) % Immature Gran # 0.11 H (0.00-0.04) X 10*3/uL Lymphocytes # 0.55 L (0.90-5.00) X 10*3/uL Monocytes # 1.29 H (0.20-1.00) X 10*3/uL Eosinophils # 0.01 L (0.04-0.35) X 10*3/uL Assessment and Plan Assessment: Postoperative day #2 status post left distal femur replacement revision knee arthroplasty for nonreconstructable distal periprosthetic femur fracture Multiple medical problems Plan: 1. Weight-bear as tolerated left lower extremity with assistance and a walker 2. DVT prophylaxis with Eliquis 3. 2 doses of postoperative Ancef followed by 2 to 6 weeks of oral suppressive antibiotics until her incision heals given the extent of her revision 4. Leave incisional wound VAC in place 5. Appreciate internal medicine and nephrology's assistance with perioperative medical management 6. Continue physical therapy while in house 7. Dispo: I think the patient would do better going to rehab given her underlying frail state of health and extensive revision procedure that she underwent. I have asked physical therapy to reassess the patient this morning.
[2024-12-06 09:36] LABS: BUN/Creat Ratio 27.71 Ratio (12.00-20.00); Blood Urea Nitrogen 19.4 mg/dL (9.0-27.0); Calcium 8.6 mg/dL (8.7-10.3); Carbon Dioxide 20.7 mmol/L (21.6-31.8); Chloride 96 mmol/L (96-109); Glucose 128 mg/dL (70-110); Magnesium 1.6 mg/dL (1.5-2.4); Potassium 4.6 mmol/L (3.5-5.5); Sodium 127 mmol/L (135-145)
[2024-12-06] MEDS: DOXYCYCLINE 100 MG CAP PO SCH (09:39)
--- NOTE | 2024-12-06 10:28 | P.PN ---
Subjective Patient is seen in follow-up for hyponatremia. Sodium level 127 today. Drinking more water. No active complaints. Vital signs are stable. General: No acute distress. HEENT: Head exam is unremarkable. LUNGS: No audible rhonchi or wheezes. HEART: Rate and Rhythm are regular. ABDOMEN: Nontender. EXTREMITITES: No edema. Objective - Vital Signs Vital signs: Vital Signs Temp 99.4 F 12/06/24 06:59 Pulse 72 12/06/24 09:08 Resp 18 12/06/24 06:59 BP 107/70 12/06/24 06:59 Pulse Ox 93 L 12/06/24 06:59 FiO2 Intake & Output 12/05/24 12/06/24 12/06/24 18:59 06:59 18:59 Intake Total 480 Output Total 490 550 Balance -490 -70 Weight 70.307 kg Intake: Oral 480 Output: Urine 490 550 Straight 550 Uretheral (Mcwilliams) 250 Other: Voiding Method Indwelling Catheter Bedside Commode Diaper # Voids 2 - Labs CBC & Chem 7: 12/05/24 03:06 12/06/24 05:57 Labs: Abnormal Lab Results - Last 24 Hours (Table) 12/06/24 Range/Units 05:57 Sodium 127 L (135-145) mmol/L Carbon Dioxide 20.7 L (21.6-31.8) mmol/L BUN/Creatinine Ratio 27.71 H (12.00-20.00) Ratio Glucose 128 H (70-110) mg/dL Calcium 8.6 L (8.7-10.3) mg/dL Assessment and Plan Plan: Assessment: 1. Hypovolemic hyponatremia initially improved with normal saline. 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 Urine osmolality 610. Cortisol level not low. Status post Samsca and sodium chloride tab this admission. Sodium level dropped to 127 today. 2. Status post fall with left distal femur fracture. Orthopedic surgery following. Status post left total knee replacement yesterday. 3. Benign hypertension. Controlled. 4. Hypothyroidism maintained on levothyroxine. Plan: Samsca 7.5 mg once today. Encouraged oral intake, particularly protein. Maintain sodium chloride tabs. Add magnesium oxide. Repeat labs in the morning.
[2024-12-06] MEDS: MAGNESIUM OXIDE 400 MG TAB PO SCH (13:07)
[2024-12-06] MEDS: TOLVAPTAN 15 MG TABLET PO ONE (13:07)
--- NOTE | 2024-12-06 14:35 | P.PN ---
Progress Note - Text Progress Note Date: 12/06/24 I am covering for Dr. Tommy Andrade today who called me this evening not feeling well. Interval history: Plan for patient to have revision of her periprosthetic distal femur fracture. Plan is for . Patient is awaiting transfer 2 units of blood for hemoglobin of 7.3. The fracture occurred secondary to fall. Tolerating diet. Patient also has been treated for hyponatremia. Sodium up to 128 this morning. [Some other patient is vital signs are recorded from this afternoon showing a fever of 103.6. I did confirm with the charge nurse there waiting for that person to take off that documentation] December 03: Sitting up in bed. Comfortable. Received 2 units of blood overnight. N.p.o. after midnight for surgery tomorrow. Otherwise comfortable. December 05: Patient is not seen yesterday at been to the OR for a while. Underwent left total knee replacement revision. Resting in bed. Some pain. Eating well. December 06: Resting. Some pain present. Tolerated diet. Seen by PT OT. Possible rehab Active Medications Acetaminophen (Acetaminophen Tab 325 Mg Tab) 650 mg PO Q6HR PRN PRN Reason: Mild Pain or Fever > 100.5 Last Admin: 12/06/24 03:56 Dose: 650 mg Hydrocodone Bitart/Acetaminophen (Hydrocodone/Apap 5-325mg 1 Each Tab) 1 each PO Q6HR PRN PRN Reason: Pain Scale 1 to 5 Hydrocodone Bitart/Acetaminophen (Hydrocodone/Apap 10-325mg 1 Each Tab) 1 each PO Q6H PRN PRN Reason: Pain Scale 6 to 10 Last Admin: 12/06/24 13:07 Dose: 1 each Albuterol/Ipratropium (Ipratropium-Albuterol 3 Ml Neb) 3 ml INHALATION RT-QID [facility] Last Admin: 12/06/24 12:19 Dose: 3 ml Alprazolam (Alprazolam 0.5 Mg Tab) 0.5 mg PO DAILY PRN PRN Reason: ANXIETY Apixaban (Apixaban 2.5 Mg Tablet) 2.5 mg PO BID [facility]; Protocol Last Admin: 12/06/24 09:34 Dose: 2.5 mg Atenolol (Atenolol 50 Mg Tab) 50 mg PO BID [facility] Last Admin: 12/06/24 09:34 Dose: 50 mg Bisacodyl (Bisacodyl 10 Mg Supp) 10 mg RECTAL DAILY PRN PRN Reason: Constipation Bupropion HCl (Bupropion Xl 150 Mg Tab.Er.24h) 150 mg PO BID [facility] Last Admin: 12/06/24 09:35 Dose: 150 mg Doxycycline Monohydrate (Doxycycline 100 Mg Cap) 100 mg PO BID [facility]; Protocol Last Admin: 12/06/24 09:39 Dose: 100 mg Ferrous Sulfate (Ferrous Sulfate 325 Mg Tab) 325 mg PO W/LUNCH [facility] Last Admin: 12/06/24 13:07 Dose: 325 mg Fluoxetine HCl (Fluoxetine Hcl 20 Mg Cap) 40 mg PO DAILY [facility] Last Admin: 12/06/24 09:33 Dose: 40 mg Gabapentin (Gabapentin 400 Mg Cap) 400 mg PO QID [facility] Last Admin: 12/06/24 13:07 Dose: 400 mg Hydromorphone HCl (Hydromorphone 0.5 Mg/0.5 Ml Syringe) 0.125 mg IVP Q3HR PRN PRN Reason: Pain Scale 1 to 3 Hydromorphone HCl (Hydromorphone 0.5 Mg/0.5 Ml Syringe) 0.5 mg IVP Q3HR PRN PRN Reason: Pain Scale 7 to 10 Last Admin: 12/06/24 09:34 Dose: 0.5 mg Hydromorphone HCl (Hydromorphone 0.5 Mg/0.5 Ml Syringe) 0.25 mg IVP Q3HR PRN PRN Reason: Pain Scale 4 to 6 Hydroxyzine Pamoate (Hydroxyzine Pamoate 25 Mg Cap) 25 mg PO Q4HR PRN PRN Reason: Nausea, Anxiety, Pain Control Lactated Ringer's (Lactated Ringers) 1,000 mls @ 20 mls/hr IV .Q24H [facility] Last Admin: 12/05/24 08:54 Dose: Not Given Ketorolac Tromethamine (Ketorolac 15 Mg/Ml 1 Ml Vial) 15 mg IVP Q6HR PRN PRN Reason: Pain Stop: 12/08/24 16:54 Last Admin: 12/04/24 13:14 Dose: 15 mg Levothyroxine Sodium (Levothyroxine 125 Mcg Tab) 125 mcg PO 0630 [facility] Last Admin: 12/06/24 06:17 Dose: 125 mcg Loratadine/Pseudoephedrine Sulfate (Loratadine-Pseudoeph 5-120 Mg 1 Each Tab.Er.12h) 1 each PO BID [facility] Last Admin: 12/06/24 09:35 Dose: 1 each Magnesium Hydroxide (Magnesium Hydroxide 2,400 Mg/30 Ml Cup) 2,400 mg PO DAILY PRN PRN Reason: Constipation Magnesium Oxide (Magnesium Oxide 400 Mg Tab) 400 mg PO BID [facility] Last Admin: 12/06/24 13:07 Dose: 400 mg Morphine Sulfate (Morphine Sulfate 4 Mg/Ml Syringe) 4 mg IV Q4HR PRN PRN Reason: Severe Pain (Scale 7 to 10) Last Admin: 12/03/24 22:13 Dose: 4 mg Multivitamins (Multivitamins, Thera 1 Each Tab) 1 each PO DAILY@1200 [facility] Last Admin: 12/06/24 13:07 Dose: 1 each Naloxone HCl (Naloxone 0.4 Mg/Ml 1 Ml Vial) 0.2 mg IV Q2M PRN PRN Reason: Opioid Reversal Ondansetron HCl (Ondansetron 4 Mg/2 Ml Vial) 4 mg IVP Q8HR PRN PRN Reason: Nausea And Vomiting Pantoprazole Sodium (Pantoprazole 40 Mg Tablet) 40 mg PO BID [facility] Last Admin: 12/06/24 09:34 Dose: 40 mg Senna/Docusate Sodium (Sennosides-Docusate Sodium 1 Each Tab) 2 each PO HS [facility] Last Admin: 12/05/24 20:12 Dose: 2 each Sodium Biphosphate/Sodium Phosphate (Na Phos,M-B/Na Phos,Di-Ba 133 Ml Enema) 133 ml RECTAL DAILY PRN PRN Reason: Constipation Sodium Chloride (Sodium Chloride Tab 1 Gm Tab) 1 gm PO BID [facility] Last Admin: 12/06/24 09:35 Dose: 1 gm On examination: VITAL SIGNS: 39.5, 79, 18, 123 x 66, 96% room air GENERAL APPEARANCE: Resting, comfortable HEENT: Normal external appearance of nose and ear. Oral cavity normal EYES: Pupils equal. Conjunctiva normal. NECK: JVD not raised. Mass not palpable. RESPIRATORY: Respiratory effort normal. Lungs clear to auscultation. CARDIOVASCULAR: First and second sounds normal. No edema. ABDOMEN: Soft. Liver and spleen not palpable. No tenderness. No mass palpable. PSYCHIATRY: Alert and oriented x3. Mood and affect normal. Musculoskeletal: OA. Dressing over left knee. Surgical wound VAC. INVESTIGATIONS, reviewed in the clinical context: December 06: Sodium 127 potassium 4.6 creatinine 0.7 December 05: Hemoglobin 8.8 December 03: White count 5.8 hemoglobin 9.6 platelets 216. Sodium 130 December 02: White count 7.1 hemoglobin 7.3 platelets 2 7 sodium 120 4 repeat 128 potassium 4.7 creatinine 0.84 Assessment plan: -Left comminuted periprosthetic distal femur fracture secondary to fall Left knee replacement. With surgical wound VAC. By Dr. Espinoza on December 04 Given the severity of revision Dr. Espinoza is scheduling 2 to 6 weeks of oral suppressive antibiotics. For better healing-doxycycline -Hypovolemic hyponatremia: Improving Treated with normal saline. Received Samsca. And sodium chloride. Fluid restriction. -Hypothyroid Synthroid 125 mcg a day -Essential hypertension Tenormin 50 mg twice daily. -GERD Omeprazole 40 mg twice daily -Depression anxiety Bupropion XL 150 g twice daily. Prozac 40 mg a day. -COPD DuoNeb -Anemia Received 2 units of blood.. -Acute postprocedure blood loss anemia expected from surgery Oral iron -Full code Continue current medication treatment plan. Fluid restriction. DC home with therapy versus rehab. 2 to 6 weeks of oral suppressive antibiotics per Dr. Espinoza for better healing
--- NOTE | 2024-12-07 10:00 | P.PN ---
Subjective Patient is doing better today. She says her pain is better controlled. She has been up in a chair. Objective - Vital Signs Vital signs: Vital Signs Temp 97.4 F L 12/07/24 06:52 Pulse 79 12/07/24 08:53 Resp 17 12/07/24 06:52 BP 109/72 12/07/24 06:52 Pulse Ox 94 L 12/07/24 06:52 FiO2 Intake & Output 12/06/24 12/07/24 12/07/24 18:59 06:59 18:59 Intake Total 540 240 Balance 540 240 Intake: Oral 540 240 Other: Voiding Method Bedside Commode Bedside Commode Diaper # Voids 3 4 # Bowel Movements 1 - Exam Resting comfortably in bed. Alert and can answer questions. Incisional wound VAC in place with good seal. Moves foot/ankle up and down. Foot is warm and well perfused. - Labs CBC & Chem 7: 12/05/24 03:06 12/06/24 05:57 Assessment and Plan Assessment: POD#3 s/p Left knee DFR for periprosthetic femur fracture. Plan: Continue treatment as previously outlined. Patient will need discharge to rehab/SNF likely in 24-48 hours when medically stable and arrangements have been made.
--- NOTE | 2024-12-07 11:16 | P.PN ---
Subjective Patient is seen in follow-up for hyponatremia. Sodium level 127 yesterday. Received Samsca yesterday. No active complaints. Vital signs are stable. General: No acute distress. HEENT: Head exam is unremarkable. LUNGS: No audible rhonchi or wheezes. HEART: Rate and Rhythm are regular. ABDOMEN: Nontender. EXTREMITITES: No edema. Objective - Vital Signs Vital signs: Vital Signs Temp 97.4 F L 12/07/24 06:52 Pulse 79 12/07/24 08:53 Resp 17 12/07/24 08:36 BP 109/72 12/07/24 06:52 Pulse Ox 94 L 12/07/24 06:52 FiO2 Intake & Output 12/06/24 12/07/24 12/07/24 18:59 06:59 18:59 Intake Total 540 240 Balance 540 240 Intake: Oral 540 240 Other: Voiding Method Bedside Commode Bedside Commode Bedside Commode Diaper # Voids 3 4 # Bowel Movements 1 - Labs CBC & Chem 7: 12/05/24 03:06 12/06/24 05:57 Assessment and Plan Plan: Assessment: 1. Hypovolemic hyponatremia initially improved with normal saline. 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 Urine osmolality 610. Cortisol level not low. Status post Samsca and sodium chloride tab this admission. Sodium level dropped to 127 yesterday. 2. Status post fall with left distal femur fracture. Orthopedic surgery following. Status post left total knee replacement yesterday. 3. Benign hypertension. Controlled. 4. Hypothyroidism maintained on levothyroxine. Plan: Status post Samsca yesterday. Encouraged oral intake, particularly protein. Maintain sodium chloride tabs. Morning labs pending.
[2024-12-07 11:34] LABS: Basophils # (A) 0.05 X 10*3/uL (0.00-0.10); Basophils % (A) 0.7 %; Eosinophils % (A) 5.4 %; HCT 27.2 % (37.2-46.3); HGB 8.8 g/dL (12.0-15.0); Lymphocytes # (A) 0.78 X 10*3/uL (0.90-5.00); Lymphocytes % (A) 10.5 %; MCH 28.1 pg (27.0-32.0); MCHC 32.4 g/dL (32.0-37.0); MCV 86.9 FL (80.0-97.0); Mean Platelet Volume 9.4 FL (9.5-12.2); Monocytes # (A) 1.16 X 10*3/uL (0.20-1.00); Monocytes % (A) 15.5 %; NRBC Per 100 WBC 0 X 10*3/uL (0.00-0.01); Neutrophils # (A) 4.99 X 10*3/uL (1.80-7.70); Neutrophils % (A) 66.8 %; Platelet Count 250 X 10*3/uL (140-440); RBC 3.13 X 10*6/uL (4.10-5.20); RDW 15.9 % (11.5-14.5); WBC 7.46 X 10*3/uL (4.50-10.00)
[2024-12-07 12:40] LABS: BUN/Creat Ratio 17.57 Ratio (12.00-20.00); Blood Urea Nitrogen 12.3 mg/dL (9.0-27.0); Calcium 8.8 mg/dL (8.7-10.3); Carbon Dioxide 24.6 mmol/L (21.6-31.8); Chloride 99 mmol/L (96-109); Glucose 92 mg/dL (70-110); Magnesium 1.7 mg/dL (1.5-2.4); Potassium 4.5 mmol/L (3.5-5.5); Sodium 131 mmol/L (135-145)
--- NOTE | 2024-12-07 16:19 | P.PN ---
Progress Note - Text Progress Note Date: 12/07/24 I am covering for Dr. Tommy Andrade today who called me this evening not feeling well. Interval history: Plan for patient to have revision of her periprosthetic distal femur fracture. Plan is for . Patient is awaiting transfer 2 units of blood for hemoglobin of 7.3. The fracture occurred secondary to fall. Tolerating diet. Patient also has been treated for hyponatremia. Sodium up to 128 this morning. [Some other patient is vital signs are recorded from this afternoon showing a fever of 103.6. I did confirm with the charge nurse there waiting for that person to take off that documentation] December 03: Sitting up in bed. Comfortable. Received 2 units of blood overnight. N.p.o. after midnight for surgery tomorrow. Otherwise comfortable. December 05: Patient is not seen yesterday at been to the OR for a while. Underwent left total knee replacement revision. Resting in bed. Some pain. Eating well. December 06: Resting. Some pain present. Tolerated diet. Seen by PT OT. Possible rehab December 07: Sitting up in the recliner. Pain controlled. Eating fair. Patient will be getting discharged to rehab. On sodium chloride tablets for hyponatremia. Some component of SIADH per nephrology. Active Medications Acetaminophen (Acetaminophen Tab 325 Mg Tab) 650 mg PO Q6HR PRN PRN Reason: Mild Pain or Fever > 100.5 Last Admin: 12/06/24 03:56 Dose: 650 mg Hydrocodone Bitart/Acetaminophen (Hydrocodone/Apap 5-325mg 1 Each Tab) 1 each PO Q6HR PRN PRN Reason: Pain Scale 1 to 5 Hydrocodone Bitart/Acetaminophen (Hydrocodone/Apap 10-325mg 1 Each Tab) 1 each PO Q6H PRN PRN Reason: Pain Scale 6 to 10 Last Admin: 12/07/24 11:56 Dose: 1 each Albuterol/Ipratropium (Ipratropium-Albuterol 3 Ml Neb) 3 ml INHALATION RT-QID [facility] Last Admin: 12/07/24 16:11 Dose: 3 ml Alprazolam (Alprazolam 0.5 Mg Tab) 0.5 mg PO DAILY PRN PRN Reason: ANXIETY Apixaban (Apixaban 2.5 Mg Tablet) 2.5 mg PO BID [facility]; Protocol Last Admin: 12/07/24 08:33 Dose: 2.5 mg Atenolol (Atenolol 50 Mg Tab) 50 mg PO BID [facility] Last Admin: 12/07/24 08:33 Dose: 50 mg Bisacodyl (Bisacodyl 10 Mg Supp) 10 mg RECTAL DAILY PRN PRN Reason: Constipation Bupropion HCl (Bupropion Xl 150 Mg Tab.Er.24h) 150 mg PO BID [facility] Last Admin: 12/07/24 08:33 Dose: 150 mg Doxycycline Monohydrate (Doxycycline 100 Mg Cap) 100 mg PO BID [facility]; Protocol Last Admin: 12/07/24 08:34 Dose: 100 mg Ferrous Sulfate (Ferrous Sulfate 325 Mg Tab) 325 mg PO W/LUNCH [facility] Last Admin: 12/07/24 11:56 Dose: 325 mg Fluoxetine HCl (Fluoxetine Hcl 20 Mg Cap) 40 mg PO DAILY [facility] Last Admin: 12/07/24 08:33 Dose: 40 mg Gabapentin (Gabapentin 400 Mg Cap) 400 mg PO QID [facility] Last Admin: 12/07/24 11:56 Dose: 400 mg Hydromorphone HCl (Hydromorphone 0.5 Mg/0.5 Ml Syringe) 0.125 mg IVP Q3HR PRN PRN Reason: Pain Scale 1 to 3 Hydromorphone HCl (Hydromorphone 0.5 Mg/0.5 Ml Syringe) 0.5 mg IVP Q3HR PRN PRN Reason: Pain Scale 7 to 10 Last Admin: 12/07/24 09:48 Dose: 0.5 mg Hydromorphone HCl (Hydromorphone 0.5 Mg/0.5 Ml Syringe) 0.25 mg IVP Q3HR PRN PRN Reason: Pain Scale 4 to 6 Hydroxyzine Pamoate (Hydroxyzine Pamoate 25 Mg Cap) 25 mg PO Q4HR PRN PRN Reason: Nausea, Anxiety, Pain Control Lactated Ringer's (Lactated Ringers) 1,000 mls @ 20 mls/hr IV .Q24H [facility] Last Admin: 12/06/24 20:06 Dose: Not Given Ketorolac Tromethamine (Ketorolac 15 Mg/Ml 1 Ml Vial) 15 mg IVP Q6HR PRN PRN Reason: Pain Stop: 12/08/24 16:54 Last Admin: 12/04/24 13:14 Dose: 15 mg Levothyroxine Sodium (Levothyroxine 125 Mcg Tab) 125 mcg PO 0630 [facility] Last Admin: 12/07/24 06:12 Dose: 125 mcg Loratadine/Pseudoephedrine Sulfate (Loratadine-Pseudoeph 5-120 Mg 1 Each Ta b.Er.12h) 1 each PO BID [facility] Last Admin: 12/07/24 08:34 Dose: 1 each Magnesium Hydroxide (Magnesium Hydroxide 2,400 Mg/30 Ml Cup) 2,400 mg PO DAILY PRN PRN Reason: Constipation Magnesium Oxide (Magnesium Oxide 400 Mg Tab) 400 mg PO BID [facility] Last Admin: 12/07/24 08:34 Dose: 400 mg Morphine Sulfate (Morphine Sulfate 4 Mg/Ml Syringe) 4 mg IV Q4HR PRN PRN Reason: Severe Pain (Scale 7 to 10) Last Admin: 12/03/24 22:13 Dose: 4 mg Multivitamins (Multivitamins, Thera 1 Each Tab) 1 each PO DAILY@1200 [facility] Last Admin: 12/07/24 11:56 Dose: 1 each Naloxone HCl (Naloxone 0.4 Mg/Ml 1 Ml Vial) 0.2 mg IV Q2M PRN PRN Reason: Opioid Reversal Ondansetron HCl (Ondansetron 4 Mg/2 Ml Vial) 4 mg IVP Q8HR PRN PRN Reason: Nausea And Vomiting Pantoprazole Sodium (Pantoprazole 40 Mg Tablet) 40 mg PO BID [facility] Last Admin: 12/07/24 08:34 Dose: 40 mg Senna/Docusate Sodium (Sennosides-Docusate Sodium 1 Each Tab) 2 each PO HS [facility] Last Admin: 12/06/24 21:10 Dose: 2 each Sodium Biphosphate/Sodium Phosphate (Na Phos,M-B/Na Phos,Di-Ba 133 Ml Enema) 133 ml RECTAL DAILY PRN PRN Reason: Constipation Sodium Chloride (Sodium Chloride Tab 1 Gm Tab) 1 gm PO BID [facility] Last Admin: 12/07/24 08:34 Dose: 1 gm On examination: VITAL SIGNS: 99.5, 72, 19, 105 x 65, 100% room air GENERAL APPEARANCE: Up in a recliner, cheerful HEENT: Normal external appearance of nose and ear. Oral cavity normal EYES: Pupils equal. Conjunctiva normal. NECK: JVD not raised. Mass not palpable. RESPIRATORY: Respiratory effort normal. Lungs clear to auscultation. CARDIOVASCULAR: First and second sounds normal. No edema. ABDOMEN: Soft. Liver and spleen not palpable. No tenderness. No mass palpable. PSYCHIATRY: Alert and oriented x3. Mood and affect normal. Musculoskeletal: OA. Left knee incision healing well INVESTIGATIONS, reviewed in the clinical context: December 07: White count 7.4 hemoglobin 8.8 platelets 250 sodium 131 potassium 4.5 creatinine 0.7 December 06: Sodium 127 potassium 4.6 creatinine 0.7 December 05: Hemoglobin 8.8 December 03: White count 5.8 hemoglobin 9.6 platelets 216. Sodium 130 December 02: White count 7.1 hemoglobin 7.3 platelets 2 7 sodium 120 4 repeat 128 potassium 4.7 creatinine 0.84 Assessment plan: -Left comminuted periprosthetic distal femur fracture secondary to fall Left knee replacement. With surgical wound VAC. By Dr. Espinoza on December 04 Given the severity of revision Dr. Espinoza is scheduling 2 to 6 weeks of oral suppressive antibiotics. For better healing-doxycycline -Hypovolemic hyponatremia: With component of SIADH. Treated with normal saline. Received Samsca. Sodium chloride tablets. Fluid restriction. -Hypothyroid Synthroid 125 mcg a day -Essential hypertension Tenormin 50 mg twice daily. -GERD Omeprazole 40 mg twice daily -Depression anxiety Bupropion XL 150 g twice daily. Prozac 40 mg a day. -COPD DuoNeb -Anemia Received 2 units of blood.. -Acute postprocedure blood loss anemia expected from surgery Oral iron -Disposition: Pending rehab -Full code Discussed with patient. Sodium better. Will go to rehab.
--- NOTE | 2024-12-08 08:04 | P.DS ---
Providers Date of admission: 11/30/24 16:05 Attending physician: Gunnar Espinoza Consults: 11/30/24 16:03 Consult Physician Routine Consulting Provider: Tommy Andrade Consult Reason/Comments: medical management, hyponatremia Do you want consulting provider notified?: Yes 12/01/24 10:01 Consult Physician Routine Consulting Provider: eYcenia Sheth Consult Reason/Comments: hyponatremia Do you want consulting provider notified?: Yes Primary care physician: Tommy [facility] Hospital Course: Patient is a 69-year-old female with stated past medical history significant for CVA/TIA, Diabetes Mellitus, Hyperlipidemia, Hypertension, Skin Disorder, Sleep Apnea/CPAP/BIPAP, Thyroid Disorder, migraines, spinal stenosis, Osteoarthritis (OA) with bilateral knee replacements about 20 years ago, who presented to the emergency department after a fall. Patient states on 11/29/2024 they were trying to get up from their bed and their foot got stuck behind them and their knees gave out and she fell forward landing on her knees. She states she had left knee pain immediately afterwards. She denies hitting her head or loss conscious. Denies any other pain or injuries from the fall. She states her only complaint is the left knee pain with reduced range of motion secondary to pain. X-ray images in the emergency department showed left comminuted periprosthetic distal femur fracture, and poor bone quality. Laboratory studies remarkable for a hyponatremia of 121 and hypochloremia of 93, and hgb 10.6. Orthopedics was consulted and Dr. Gunnar Espinoza has agreed to manage this case. Patient had preoperative anemia and was treated with transfusion. On 12/04/2024 patient underwent Left total knee replacement revision for treatment of distal femur fracture with distal femoral replacing hinge, Complex removal of prosthesis, left knee, and application of negative pressure wound VAC, by Dr. Gunnar Espinoza. Patient tolerated the procedure well. Patient was transferred to the orthopedic floor. In the postoperative operative. The patient has done well from a surgical standpoint. It was determined the patient would need rehab at time of discharge. The patients medical conditions have continued to be managed by internal medicine and nephrology team. Patient was examined at bedside this morning. Wound VAC is intact, no signs of erythema surrounding the wound VAC. Left thigh with generalized diffuse swelling, that the patient states chronic. Left femoral nerve function gross intact. Patient is able to plantarflex dorsiflex her left ankles and toes. Left calf is soft to compression. Patient will work with physical therapy again this morning. Patient may be transferred to rehab facility from an orthopedic standpoint when cleared by medical team. Appreciate medical team continued management. Patient will have outpatient follow-up 2 weeks postop. Assessment: POD#3 s/p Left knee DFR for periprosthetic femur fracture. Left knee pain Multiple medical problems. Patient Condition at Discharge: Stable Plan - Discharge Summary Discharge Rx Participant: Yes New Discharge Prescriptions: New Docusate [Colace] 100 mg PO BID #60 capsule HYDROcodone/APAP 5-325MG [[place] 5-325] 1 - 2 tab PO Q6HR PRN #56 tab PRN Reason: Pain Apixaban [Eliquis] 2.5 mg PO BID #60 tab Ondansetron [Zofran] 4 mg PO Q8HR PRN #20 tab PRN Reason: Nausea Omeprazole [PriLOSEC] 40 mg PO DAILY #30 cap Doxycycline Monohydrate 100 mg PO BID #84 cap No Action ALPRAZolam [Xanax] 0.5 mg PO DAILY PRN PRN Reason: ANXIETY buPROPion HCL [buPROPion HCL Xl] 150 mg PO BID Omeprazole 40 mg PO BID amLODIPine [Norvasc] 5 mg PO DAILY Ipratropium-Albuterol Nebulize [Duoneb 0.5 mg-3 mg/3 ml Soln] 3 ml INHALATION RT-QID Levothyroxine Sodium [Synthroid] 125 mcg PO DAILY FLUoxetine HCL 40 mg PO DAILY HYDROcodone/APAP 7.5-325MG [[place] 7.5-325] 1 tab PO TID PRN PRN Reason: Pain Fexofenadine/Pseudoephedrine [Nazia-D 24 Hour Tablet] 1 tab PO DAILY Ondansetron [Zofran] 4 mg PO Q8HR PRN PRN Reason: Nausea Gabapentin [Neurontin] 400 mg PO QID Ibuprofen [Motrin] 600 mg PO TID PRN PRN Reason: Pain atenoloL [Tenormin] 50 mg PO BID Discharge Medication List ALPRAZolam [Xanax] 0.5 mg PO DAILY PRN 10/15/19 [History] FLUoxetine HCL 40 mg PO DAILY 05/10/22 [History] Omeprazole 40 mg PO BID 05/10/22 [History] buPROPion HCL [buPROPion HCL Xl] 150 mg PO BID 05/10/22 [History] HYDROcodone/APAP 7.5-325MG [[place] 7.5-325] 1 tab PO TID PRN 08/07/22 [History] Fexofenadine/Pseudoephedrine [Nazia-D 24 Hour Tablet] 1 tab PO DAILY 11/30/24 [History] Gabapentin [Neurontin] 400 mg PO QID 11/30/24 [History] Ibuprofen [Motrin] 600 mg PO TID PRN 11/30/24 [History] Ipratropium-Albuterol Nebulize [Duoneb 0.5 mg-3 mg/3 ml Soln] 3 ml INHALATION RT-QID 11/30/24 [History] Levothyroxine Sodium [Synthroid] 125 mcg PO DAILY 11/30/24 [History] Ondansetron [Zofran] 4 mg PO Q8HR PRN 11/30/24 [History] amLODIPine [Norvasc] 5 mg PO DAILY 11/30/24 [History] atenoloL [Tenormin] 50 mg PO BID 11/30/24 [History] Apixaban [Eliquis] 2.5 mg PO BID #60 tab 12/06/24 [Rx] Docusate [Colace] 100 mg PO BID #60 capsule 12/06/24 [Rx] Doxycycline Monohydrate 100 mg PO BID #84 cap 12/06/24 [Rx] HYDROcodone/APAP 5-325MG [[place] 5-325] 1 - 2 tab PO Q6HR PRN #56 tab 12/06/24 [Rx] Omeprazole [PriLOSEC] 40 mg PO DAILY #30 cap 12/06/24 [Rx] Ondansetron [Zofran] 4 mg PO Q8HR PRN #20 tab 12/06/24 [Rx] Follow up Appointment(s)/Referral(s): [facility] [NON-STAFF] - 1-2 Days ([facility] will call you to schedule your in home nursing, physical therapy, and occupational therapy visits. ) Tommy Andrade MD [Primary Care Provider] - 1-2 days Gunnar Espinoza MD [Medical Doctor] - 1 Week Activity/Diet/Wound Care/Special Instructions: 1. Weight-bear as tolerated on your operative extremity unless instructed otherwise. Use a walker or other assistive device to ambulate. 2. Leave surgical dressing in place. If your dressing becomes saturated with blood, there is drainage, or the dressing becomes loose please contact the office. 3. It is okay to shower with your surgical dressing, but do not submerge in water (no hot tubs, bath's, swimming etc.) 4. Make sure to take her blood clot prevention medication as prescribed (aspirin, Eliquis, Xarelto, and Plavix are commonly prescribed medications for blood clot prevention) 5. While taking [place] or Percocet for pain make sure you're taking a stool softener (Colace) and drink lots of water. 6. Keep all follow-up appointments as scheduled. You will usually be seen in 1-2 weeks following surgery. 7. Please contact the office with any questions or concerns [phone] Discharge Disposition: TRANSFER TO SNF/ECF
[2024-12-08 09:13] LABS: BUN/Creat Ratio 19.17 Ratio (12.00-20.00); Blood Urea Nitrogen 11.5 mg/dL (9.0-27.0); Calcium 8.7 mg/dL (8.7-10.3); Chloride 99 mmol/L (96-109); Glucose 86 mg/dL (70-110); Magnesium 1.7 mg/dL (1.5-2.4); Potassium 4.5 mmol/L (3.5-5.5); Sodium 130 mmol/L (135-145)
[2024-12-08 14:49] VITALS: BP 101/58; PULSE 74; RESP 16; TEMP 97.8
--- NOTE | 2024-12-08 15:12 | P.PN ---
Progress Note - Text Progress Note Date: 12/08/24 I am covering for Dr. Tommy Andrade today who called me this evening not feeling well. Interval history: Plan for patient to have revision of her periprosthetic distal femur fracture. Plan is for . Patient is awaiting transfer 2 units of blood for hemoglobin of 7.3. The fracture occurred secondary to fall. Tolerating diet. Patient also has been treated for hyponatremia. Sodium up to 128 this morning. [Some other patient is vital signs are recorded from this afternoon showing a fever of 103.6. I did confirm with the charge nurse there waiting for that person to take off that documentation] December 03: Sitting up in bed. Comfortable. Received 2 units of blood overnight. N.p.o. after midnight for surgery tomorrow. Otherwise comfortable. December 05: Patient is not seen yesterday at been to the OR for a while. Underwent left total knee replacement revision. Resting in bed. Some pain. Eating well. December 06: Resting. Some pain present. Tolerated diet. Seen by PT OT. Possible rehab December 07: Sitting up in the recliner. Pain controlled. Eating fair. Patient will be getting discharged to rehab. On sodium chloride tablets for hyponatremia. Some component of SIADH per nephrology. December 08: Up in the recliner. Walking much better. Plan is for patient to go home now. Will be discharged on saline tablets. Otherwise doing well. Questions answered. Active Medications Acetaminophen (Acetaminophen Tab 325 Mg Tab) 650 mg PO Q6HR PRN PRN Reason: Mild Pain or Fever > 100.5 Last Admin: 12/06/24 03:56 Dose: 650 mg Hydrocodone Bitart/Acetaminophen (Hydrocodone/Apap 5-325mg 1 Each Tab) 1 each PO Q6HR PRN PRN Reason: Pain Scale 1 to 5 Hydrocodone Bitart/Acetaminophen (Hydrocodone/Apap 10-325mg 1 Each Tab) 1 each PO Q6H PRN PRN Reason: Pain Scale 6 to 10 Last Admin: 12/08/24 12:43 Dose: 1 each Albuterol/Ipratropium (Ipratropium-Albuterol 3 Ml Neb) 3 ml INHALATION RT-QID [facility] Last Admin: 12/08/24 12:35 Dose: 3 ml Alprazolam (Alprazolam 0.5 Mg Tab) 0.5 mg PO DAILY PRN PRN Reason: ANXIETY Apixaban (Apixaban 2.5 Mg Tablet) 2.5 mg PO BID [facility]; Protocol Last Admin: 12/08/24 09:08 Dose: 2.5 mg Atenolol (Atenolol 50 Mg Tab) 50 mg PO BID [facility] Last Admin: 12/08/24 09:08 Dose: 50 mg Bisacodyl (Bisacodyl 10 Mg Supp) 10 mg RECTAL DAILY PRN PRN Reason: Constipation Bupropion HCl (Bupropion Xl 150 Mg Tab.Er.24h) 150 mg PO BID [facility] Last Admin: 12/08/24 09:11 Dose: 150 mg Doxycycline Monohydrate (Doxycycline 100 Mg Cap) 100 mg PO BID [facility]; Protocol Last Admin: 12/08/24 09:11 Dose: 100 mg Ferrous Sulfate (Ferrous Sulfate 325 Mg Tab) 325 mg PO W/LUNCH [facility] Last Admin: 12/08/24 12:44 Dose: 325 mg Fluoxetine HCl (Fluoxetine Hcl 20 Mg Cap) 40 mg PO DAILY [facility] Last Admin: 12/08/24 09:08 Dose: 40 mg Gabapentin (Gabapentin 400 Mg Cap) 400 mg PO QID [facility] Last Admin: 12/08/24 12:44 Dose: 400 mg Hydromorphone HCl (Hydromorphone 0.5 Mg/0.5 Ml Syringe) 0.125 mg IVP Q3HR PRN PRN Reason: Pain Scale 1 to 3 Hydromorphone HCl (Hydromorphone 0.5 Mg/0.5 Ml Syringe) 0.5 mg IVP Q3HR PRN PRN Reason: Pain Scale 7 to 10 Last Admin: 12/07/24 17:37 Dose: 0.5 mg Hydromorphone HCl (Hydromorphone 0.5 Mg/0.5 Ml Syringe) 0.25 mg IVP Q3HR PRN PRN Reason: Pain Scale 4 to 6 Hydroxyzine Pamoate (Hydroxyzine Pamoate 25 Mg Cap) 25 mg PO Q4HR PRN PRN Reason: Nausea, Anxiety, Pain Control Lactated Ringer's (Lactated Ringers) 1,000 mls @ 20 mls/hr IV .Q24H [facility] Last Admin: 12/08/24 12:44 Dose: Not Given Ketorolac Tromethamine (Ketorolac 15 Mg/Ml 1 Ml Vial) 15 mg IVP Q6HR PRN PRN Reason: Pain Stop: 12/08/24 16:54 Last Admin: 12/04/24 13:14 Dose: 15 mg Levothyroxine Sodium (Levothyroxine 125 Mcg Tab) 125 mcg PO 0630 [facility] Last Admin: 12/08/24 06:48 Dose: 125 mcg Loratadine/Pseudoephedrine Sulfate (Loratadine-Pseudoeph 5-120 Mg 1 Each Tab.Er.12h) 1 each PO BID [facility] Last Admin: 12/08/24 09:11 Dose: 1 each Magnesium Hydroxide (Magnesium Hydroxide 2,400 Mg/30 Ml Cup) 2,400 mg PO DAILY PRN PRN Reason: Constipation Magnesium Oxide (Magnesium Oxide 400 Mg Tab) 400 mg PO BID [facility] Last Admin: 12/08/24 09:08 Dose: 400 mg Morphine Sulfate (Morphine Sulfate 4 Mg/Ml Syringe) 4 mg IV Q4HR PRN PRN Reason: Severe Pain (Scale 7 to 10) Last Admin: 12/03/24 22:13 Dose: 4 mg Multivitamins (Multivitamins, Thera 1 Each Tab) 1 each PO DAILY@1200 [facility] Last Admin: 12/08/24 09:08 Dose: 1 each Naloxone HCl (Naloxone 0.4 Mg/Ml 1 Ml Vial) 0.2 mg IV Q2M PRN PRN Reason: Opioid Reversal Ondansetron HCl (Ondansetron 4 Mg/2 Ml Vial) 4 mg IVP Q8HR PRN PRN Reason: Nausea And Vomiting Pantoprazole Sodium (Pantoprazole 40 Mg Tablet) 40 mg PO BID [facility] Last Admin: 12/08/24 09:08 Dose: 40 mg Senna/Docusate Sodium (Sennosides-Docusate Sodium 1 Each Tab) 2 each PO HS [facility] Last Admin: 12/07/24 20:32 Dose: Not Given Sodium Biphosphate/Sodium Phosphate (Na Phos,M-B/Na Phos,Di-Ba 133 Ml Enema) 133 ml RECTAL DAILY PRN PRN Reason: Constipation Sodium Chloride (Sodium Chloride Tab 1 Gm Tab) 1 gm PO BID [facility] Last Admin: 12/08/24 09:10 Dose: 1 gm On examination: VITAL SIGNS: 97.8, 74, 16, 101 x 58, 98% room air GENERAL APPEARANCE: Up in a recliner, cheerful HEENT: Normal external appearance of nose and ear. Oral cavity normal EYES: Pupils equal. Conjunctiva normal. NECK: JVD not raised. Mass not palpable. RESPIRATORY: Respiratory effort normal. Lungs clear to auscultation. CARDIOVASCULAR: First and second sounds normal. No edema. ABDOMEN: Soft. Liver and spleen not palpable. No tenderness. No mass palpable. PSYCHIATRY: Alert and oriented x3. Mood and affect normal. Musculoskeletal: OA. Left knee incision healing well INVESTIGATIONS, reviewed in the clinical context: December 08: Sodium 130 December 07: White count 7.4 hemoglobin 8.8 platelets 250 sodium 131 potassium 4.5 creatinine 0.7 December 06: Sodium 127 potassium 4.6 creatinine 0.7 December 05: Hemoglobin 8.8 December 03: White count 5.8 hemoglobin 9.6 platelets 216. Sodium 130 December 02: White count 7.1 hemoglobin 7.3 platelets 2 7 sodium 120 4 repeat 128 potassium 4.7 creatinine 0.84 Assessment plan: -Left comminuted periprosthetic distal femur fracture secondary to fall Left knee replacement. With surgical wound VAC. By Dr. Espinoza on December 04 Given the severity of revision Dr. Espinoza is scheduling 2 to 6 weeks of oral suppressive antibiotics. For better healing-doxycycline -Hypovolemic hyponatremia: With component of SIADH. Treated with normal saline. Received Samsca. Sodium chloride tablets. Fluid restriction. -Hypothyroid Synthroid 125 mcg a day -Essential hypertension Tenormin 50 mg twice daily. -GERD Omeprazole 40 mg twice daily -Depression anxiety Bupropion XL 150 g twice daily. Prozac 40 mg a day. -COPD DuoNeb -Acute postprocedure blood loss anemia expected from surgery Oral iron Received 2 units of blood -Disposition: Home -Full code Going home today. Continue sodium tablets. Follow-up with nephrology outpatient.
--- NOTE | 2024-12-08 16:01 | P.PN ---
Subjective Patient is seen in follow-up for hyponatremia. Sodium level stable at 130. Going home today. No active complaints. Vital signs are stable. General: No acute distress. HEENT: Head exam is unremarkable. LUNGS: No audible rhonchi or wheezes. HEART: Rate and Rhythm are regular. ABDOMEN: Nontender. EXTREMITITES: No edema. Objective - Vital Signs Vital signs: Vital Signs Temp 97.8 F 12/08/24 14:29 Pulse 74 12/08/24 14:29 Resp 16 12/08/24 14:29 BP 101/58 12/08/24 14:29 Pulse Ox 98 12/08/24 14:29 FiO2 Intake & Output 12/07/24 12/08/24 12/08/24 18:59 06:59 18:59 Intake Total 240 240 Balance 240 240 Intake: Oral 240 240 Other: Voiding Method Bedside Commode Bedside Commode Bedside Commode # Voids 4 3 - Labs CBC & Chem 7: 12/07/24 05:42 12/08/24 03:59 Labs: Abnormal Lab Results - Last 24 Hours (Table) 12/08/24 Range/Units 03:59 Sodium 130 L (135-145) mmol/L Assessment and Plan Plan: Assessment: 1. Hypovolemic hyponatremia initially improved with normal saline. Also component of SIADH from pain and fluoxetine. Urine osmolality 610. Cortisol level not low. Status post Samsca and sodium chloride tab this admission. Sodium level dropped to 127 yesterday and is improved to 130 today. 2. Status post fall with left distal femur fracture. Orthopedic surgery [facility]. Status post left total knee replacement yesterday. 3. Benign hypertension. Controlled. 4. Hypothyroidism maintained on levothyroxine. Plan: Encouraged oral intake, particularly protein. Maintain sodium chloride tabs. Repeat BMP and magnesium level 2 to 3 days postdischarge. Follow-up outpatient in 1 week. Advised patient to maintain fluid restriction of less than 60 ounces per day upon discharge.
== END 2024-12-08 15:36 | DRG 466 ==
LOC: EC 13:26 → 4SSUR 16:05
PROVIDERS: ADMIT Orthopaedic Surgery; ATTEND Orthopaedic Surgery
PROC: 30233N1 Transfusion of Nonautologous Red Blood Cells into Peripheral Vein, Percutaneous Approach (ICD-10-PCS; 2024-12-02)
PROC: 0SRD0J9 Replacement of Left Knee Joint with Synthetic Substitute, Cemented, Open Approach (ICD-10-PCS; 2024-12-04)
PROC: 0SPD09Z Removal of Liner from Left Knee Joint, Open Approach (ICD-10-PCS; 2024-12-04)
PROC: 0SUW09Z Supplement Left Knee Joint, Tibial Surface with Liner, Open Approach (ICD-10-PCS; 2024-12-04)
PROC: 0SPD0JZ Removal of Synthetic Substitute from Left Knee Joint, Open Approach (ICD-10-PCS; principal; 2024-12-04 16:30)
DX: S72.402A Unspecified fracture of lower end of left femur, initial encounter for closed fracture (principal); J18.9 Pneumonia, unspecified organism; E22.2 Syndrome of inappropriate secretion of antidiuretic hormone; M97.12XA Periprosthetic fracture around internal prosthetic left knee joint, initial encounter; D62 Acute posthemorrhagic anemia; I10 Essential (primary) hypertension; E03.9 Hypothyroidism, unspecified; E11.9 Type 2 diabetes mellitus without complications; F32.A Depression, unspecified; T43.502A Poisoning by unspecified antipsychotics and neuroleptics, intentional self-harm, initial encounter; M85.88 Other specified disorders of bone density and structure, other site; E78.5 Hyperlipidemia, unspecified; E86.1 Hypovolemia; E87.8 Other disorders of electrolyte and fluid balance, not elsewhere classified; F41.9 Anxiety disorder, unspecified; M24.562 Contracture, left knee; I25.10 Atherosclerotic heart disease of native coronary artery without angina pectoris; W18.30XA Fall on same level, unspecified, initial encounter; Z79.890 Hormone replacement therapy; Z79.899 Other long term (current) drug therapy; Z86.73 Personal history of transient ischemic attack (TIA), and cerebral infarction without residual deficits; Z87.891 Personal history of nicotine dependence; Z98.84 Bariatric surgery status; Z88.8 Allergy status to other drugs, medicaments and biological substances; Z88.0 Allergy status to penicillin; X58.XXXA Exposure to other specified factors, initial encounter; Z98.42 Cataract extraction status, left eye; Z98.41 Cataract extraction status, right eye; Z96.653 Presence of artificial knee joint, bilateral
CPT/HCPCS: 36415; 36430; 71045; 72170; 80048; 80053; 82533; 83036; 83735; 83930; 83935; 84295; 84439; 84443; 85025; 86850; 86900; 86901; 86920; 93005; 94640; 96361; 96374; 96375; 96376; 99285

== ENCOUNTER 2024-12-11 09:34 | Observation (INO) | payer MEDICARE, BC ==
[2024-12-11] MEDS: HYDROmorphone 0.5 MG/0.5 ML SYRINGE IVP STA (10:27)
[2024-12-11 10:36] LABS: Anisocytosis Slight; Basophils % (A) 1 %; Eosinophils # (A) 0.6 k/uL (0-0.7); Eosinophils % (A) 9 %; HCT 29.1 % (34.0-46.0); HGB 9.7 gm/dL (11.4-16.0); Lymphocytes # (A) 0.6 k/uL (1.0-4.8); Lymphocytes % (A) 8 %; MCH 29.5 pg (25.0-35.0); MCHC 33.2 g/dL (31.0-37.0); MCV 88.9 fL (80.0-100.0); Mean Platelet Volume 7.8; Monocytes # (A) 0.6 k/uL (0-1.0); Monocytes % (A) 8 %; Neutrophils # (A) 4.8 k/uL (1.3-7.7); Neutrophils % (A) 70 %; Platelet Count 291 k/uL (150-450); RBC 3.27 m/uL (3.80-5.40); WBC 6.8 k/uL (3.8-10.6)
[2024-12-11 10:50] LABS: ALT 12 U/L (4-34); AST 27 U/L (14-36); African American GFR (CKD) 84 (>60 ml/min/1.73 sqM); Albumin 3.2 g/dL (3.5-5.0); Alkaline Phosphatase 59 U/L (38-126); Anion Gap 9 mmol/L; Blood Urea Nitrogen 16 mg/dL (7-17); Calcium 8.9 mg/dL (8.4-10.2); Carbon Dioxide 23 mmol/L (22-30); Chloride 97 mmol/L (98-107); Glucose 96 mg/dL (74-99); Non-African American GFR(CKD) 73 (>60 ml/min/1.73 sqM); Potassium 4.6 mmol/L (3.5-5.1); Sodium 129 mmol/L (137-145); Total Bilirubin 1.2 mg/dL (0.2-1.3)
[2024-12-11] MEDS: SODIUM CHLORIDE 0.9% 1,000 ML IV ONE (10:55)
[2024-12-11] MEDS: SODIUM CHLORIDE 0.9% 1,000 ML IV SCH (10:55)
[2024-12-11] MEDS ORDERED: NALOXONE 0.4 MG/ML 1 ML VIAL IV PRN (10:58)
[2024-12-11] MEDS ORDERED: ONDANSETRON 4 MG/2 ML VIAL IVP PRN (11:03)
--- NOTE | 2024-12-11 11:11 | ED ---
Weakness HPI - General Chief complaint: Weakness Stated complaint: post-op L knee pain Time Seen by Provider: 12/11/24 09:50 Source: patient, RN/MD, RN notes reviewed Mode of arrival: wheelchair Limitations: physical limitation - History of Present Illness Initial comments: 69-year-old female presents emergency department from orthopedics office for admission for placement to rehab. Patient status post knee revision after periprosthetic fracture. Patient states pain is increasing and she does have during healing device on her left knee. She states that she was post to go to rehab which she attempted home care but is not successful. Patient in and by orthopedic surgeon for placement to rehab. - Related Data Home Medications Medication Instructions Recorded Confirmed ALPRAZolam [Xanax] 0.5 mg PO DAILY PRN 10/15/19 12/11/24 FLUoxetine HCL 40 mg PO DAILY 05/10/22 12/11/24 Omeprazole 40 mg PO BID 05/10/22 12/11/24 buPROPion HCL [buPROPion HCL XL] 150 mg PO BID 05/10/22 12/11/24 Fexofenadine/Pseudoephedrine 1 tab PO DAILY 11/30/24 12/11/24 [Nazia-D 24 Hour Tablet] Gabapentin [Neurontin] 400 mg PO QID 11/30/24 12/11/24 Ipratropium-Albuterol Nebulize 3 ml INHALATION RT-QID 11/30/24 12/11/24 [Duoneb 0.5 mg-3 mg/3 ml Soln] Levothyroxine Sodium [Synthroid] 125 mcg PO DAILY 11/30/24 12/11/24 atenoloL [Tenormin] 50 mg PO BID 11/30/24 12/11/24 Multivitamins, Thera [Multivitamin 1 tab PO DAILY@1200 12/11/24 12/11/24 (formulary)] amLODIPine [Norvasc] 5 mg PO DAILY 12/11/24 12/11/24 Previous Rx's Medication Instructions Recorded Apixaban [Eliquis] 2.5 mg PO BID #60 tab 12/06/24 Docusate [Colace] 100 mg PO BID #60 capsule 12/06/24 Doxycycline Monohydrate 100 mg PO BID #84 cap 12/06/24 HYDROcodone/APAP 5-325MG [[place] 1 - 2 tab PO Q6HR PRN #56 tab 12/06/24 5-325] Omeprazole [PriLOSEC] 40 mg PO DAILY #30 cap 12/06/24 Ondansetron [Zofran] 4 mg PO Q8HR PRN #20 tab 12/06/24 Ferrous Sulfate [Iron (65 MG 325 mg PO W/LUNCH #30 tab 12/08/24 Elemental)] Sodium Chloride Tab 1 gm PO BID #60 tab 12/08/24 Allergies Allergy/AdvReac Type Severity Reaction Status Date / Time dulaglutide [From [facility]] Allergy NAUSEA,VOMITING Verified 12/11/24 10:51 SWELLING OF LYPMPHNODE, HEADACHE Penicillins Allergy Rash/Hives Verified 12/11/24 10:51 Review of Systems ROS Statement: Those systems with pertinent positive or pertinent negative responses have been documented in the HPI. ROS Other: All systems not noted in ROS Statement are negative. Past Medical History Past Medical History: CVA/TIA, Diabetes Mellitus, Hyperlipidemia, Hypertension, Osteoarthritis (OA), Skin Disorder, Sleep Apnea/CPAP/BIPAP, Thyroid Disorder Additional Past Medical History / Comment(s): MIGRAINES, spinal stenosis, questionable tia,borderline diabetic. AUTO IMMUNE SKIN RASH ON ARMS AND UPPER CHEST History of Any Multi-Drug Resistant Organisms: None Reported Past Surgical History: Bariatric Surgery, Breast Surgery, Section, Cholecystectomy, Joint Replacement, Orthopedic Surgery Additional Past Surgical History / Comment(s): GASTRIC BYPASS, PAIN INJECTIONS, EXCESS SKIN REMOVED FROM ABDOMEN AND ARMS, NANCY knee replacement, BILATERAL CATARACT SURGERY. breast firbroids removed x2 Past Anesthesia/Blood Transfusion Reactions: No Reported Reaction, Motion Sickness Additional Past Anesthesia/Blood Transfusion Reaction / Comment(s): "sea sick once" No blood transfusion Past Psychological History: Anxiety, Depression Smoking Status: Former smoker Past Alcohol Use History: None Reported Past Drug Use History: None Reported - Past Family History Mother Family Medical History: Cancer General Exam Limitations: physical limitation General appearance: alert, in no apparent distress Neck exam: Present: normal inspection, full ROM. Absent: tenderness, meningismus, lymphadenopathy Respiratory exam: Present: normal lung sounds bilaterally. Absent: respiratory distress, wheezes, rales, rhonchi, stridor Cardiovascular Exam: Present: regular rate, normal rhythm, normal heart sounds. Absent: systolic murmur, diastolic murmur, rubs, gallop, clicks GI/Abdominal exam: Present: soft, normal bowel sounds. Absent: distended, tenderness, guarding, rebound, rigid Extremities exam: Present: other (Dressing over left knee, no erythema pedal pulses equal bilaterally and limited range of motion) Course Vital Signs 12/11/24 12/11/24 09:37 10:12 Temperature 97.9 F Pulse Rate 54 L 56 L Respiratory 18 16 Rate Blood Pressure 126/46 O2 Sat by Pulse 99 94 L Oximetry Medical Decision Making - Medical Decision Making Was pt. sent in by a medical professional or institution (, [facility], [employer], urgent care, hospital, or alf...) When possible be specific @ -Orthopedic surgeon Did you speak to anyone other than the patient for history (EMS, parent, family, police, friend...)? What history was obtained from this source @ -No Did you review nursing and triage notes (agree or disagree)? Why? @ -I reviewed and agree with nursing and triage notes Were old charts reviewed (outside hosp., previous admission, EMS record, old EKG, old radiological studies, urgent care reports/EKG's, alf records)? Report findings @ -No old charts were reviewed Differential Diagnosis (chest pain, altered mental status, abdominal pain women, abdominal pain men, vaginal bleeding, weakness, fever, dyspnea, syncope, headache, dizziness, GI bleed, back pain, seizure, CVA, palpatations, mental health, musculoskeletal)? @ -Weakness hyponatremia left knee pain status post surgery EKG interpreted by me (3pts min.). @ -None X-rays interpreted by me (1pt min.). @ -None done CT interpreted by me (1pt min.). @ -None done U/S interpreted by me (1pt. min.). @ -None done What testing was considered but not performed or refused? (CT, X-rays, U/S, labs)? Why? @ -None What meds were considered but not given or refused? Why? @ -None Did you discuss the management of the patient with other professionals (professionals i.e. [facility]IA Licea, [employer], lab, RT, psych nurse, school social worker, route sales manager, teacher, civil preparedness training officer, showcase maker)? Give summary @ -Dr. Andrade for admission, case management for placement to rehab Was smoking cessation discussed for >3mins.? @ -No Was critical care preformed (if so, how long)? @ -No Were there social determinants of health that impacted care today? How? (Homelessness, low income, unemployed, alcoholism, drug addiction, transportation, low edu. Level, literacy, decrease access to med. care, alf, rehab)? @ -No Was there de-escalation of care discussed even if they declined (Discuss DNR or withdrawal of care, Hospice)? DNR status @ -No What co-morbidities impacted this encounter? (DM, HTN, Smoking, COPD, CAD, Cancer, CVA, ARF, Chemo, Hep., AIDS, mental health diagnosis, sleep apnea, morbid obesity)? @ -None Was patient admitted / discharged? Hospital course, mention meds given and route, prescriptions, significant lab abnormalities, going to OR and other pertinent info. @ -Admitted to the hospital for placement for rehab due to left knee surgery. Undiagnosed new problem with uncertain prognosis? @ -No Drug Therapy requiring intensive monitoring for toxicity (Heparin, Nitro, Insulin, Cardizem)? @ -No Were any procedures done? @ -No Diagnosis/symptom? @ -hyponatremia status post left knee surgery, pain Acute, or Chronic, or Acute on Chronic? @Acute Uncomplicated (without systemic symptoms) or Complicated (systemic symptoms)? @ -Uncomplicated Side effects of treatment? @ -No Exacerbation, Progression, or Severe Exacerbation? @ -No Poses a threat to life or bodily function? How? (Chest pain, [place], [place], pneumonia, PE, COPD, DKA, ARF, appy, cholecystitis, CVA, Diverticulitis, Homicidal, Suicidal, threat to staff... and all critical care pts) @ -No - Lab Data Result diagrams: 12/11/24 10:12 12/11/24 10:12 Lab Results 12/11/24 12/11/24 Range/Units 10:12 10:12 WBC 6.8 (3.8-10.6) k/uL RBC 3.27 L (3.80-5.40) m/uL Hgb 9.7 L (11.4-16.0) gm/dL Hct 29.1 L (34.0-46.0) % MCV 88.9 (80.0-100.0) fL MCH 29.5 (25.0-35.0) pg MCHC 33.2 (31.0-37.0) g/dL RDW 16.0 H (11.5-15.5) % Plt Count 291 (150-450) k/uL MPV 7.8 Neutrophils % 70 % Lymphocytes % 8 % Monocytes % 8 % Eosinophils % 9 % Basophils % 1 % Neutrophils # 4.8 (1.3-7.7) k/uL Lymphocytes # 0.6 L (1.0-4.8) k/uL Monocytes # 0.6 (0-1.0) k/uL Eosinophils # 0.6 (0-0.7) k/uL Basophils # 0.0 (0-0.2) k/uL Anisocytosis Slight Sodium 129 L (137-145) mmol/L Potassium 4.6 (3.5-5.1) mmol/L Chloride 97 L (98-107) mmol/L Carbon Dioxide 23 (22-30) mmol/L Anion Gap 9 mmol/L BUN 16 (7-17) mg/dL Creatinine 0.83 (0.52-1.04) mg/dL Est GFR (CKD-EPI)AfAm 84 (>60 ml/min/1.73 sqM) Est GFR (CKD-EPI)NonAf 73 (>60 ml/min/1.73 sqM) Glucose 96 (74-99) mg/dL Calcium 8.9 (8.4-10.2) mg/dL Total Bilirubin 1.2 (0.2-1.3) mg/dL AST 27 (14-36) U/L ALT 12 (4-34) U/L Alkaline Phosphatase 59 (38-126) U/L Total Protein 6.0 L (6.3-8.2) g/dL Albumin 3.2 L (3.5-5.0) g/dL Disposition Clinical Impression: Hyponatremia, S/P left knee surgery Disposition: ADMITTED IP TO THIS HOSP Condition: Fair Referrals: Tommy Andrade MD [Primary Care Provider] - 1-2 days Time of Disposition: 11:11
[2024-12-11] MEDS: HYDROmorphone 0.5 MG/0.5 ML SYRINGE IVP PRN (15:12)
[2024-12-11] MEDS ORDERED: ALPRAZolam 0.5 MG TAB PO PRN (17:43)
[2024-12-11] MEDS ORDERED: ONDANSETRON 4 MG TAB PO PRN (17:43)
[2024-12-11] MEDS: GABAPENTIN 400 MG CAP PO SCH (18:15)
[2024-12-11] MEDS: IPRATROPIUM-ALBUTEROL 3 ML NEB INHALATION SCH (20:09)
[2024-12-11] MEDS: APIXABAN 2.5 MG TABLET PO SCH (21:13)
[2024-12-11] MEDS: DOCUSATE 100 MG CAP PO SCH (21:13)
[2024-12-11] MEDS: HYDROcodone/APAP 7.5-325MG 1 EACH TAB PO PRN (21:13)
[2024-12-11] MEDS: SODIUM CHLORIDE TAB 1 GM TAB PO SCH (21:13)
[2024-12-11] MEDS: atenoloL 50 MG TAB PO SCH (21:13)
[2024-12-11] MEDS: buPROPion XL 150 MG TAB.ER.24H PO SCH (21:13)
[2024-12-11 21:14] LABS: Glucose,Whole Blood 124 mg/dL (70-110)
[2024-12-12] MEDS: LEVOTHYROXINE 125 MCG TAB PO SCH (06:00)
[2024-12-12] MEDS: PANTOPRAZOLE 40 MG TABLET PO SCH (06:39)
[2024-12-12] MEDS: HYDROmorphone 1 MG/ML 1 ML SYRINGE IVP PRN (08:07)
[2024-12-12] MEDS: MULTIVITAMINS, THERA 1 EACH TAB PO SCH (08:32)
[2024-12-12] MEDS: amLODIPine 5 MG TAB PO SCH (08:32)
[2024-12-12] MEDS: FERROUS SULFATE 325 MG TAB PO SCH (08:33)
[2024-12-12] MEDS: FLUoxetine HCL 20 MG CAP PO SCH (08:33)
[2024-12-12] MEDS: LORATADINE-PSEUDOEPH 5-120 MG 1 EACH TAB.ER.12H PO SCH (08:33)
[2024-12-12] MEDS ORDERED: NON FORMULARY DRUG (Omeprazole 40 MG Capsule.Dr) PO SCH (09:00)
--- NOTE | 2024-12-12 09:49 | P.CNOR ---
History of Present Illness - [facility] Consult date: 12/12/24 Consult reason: other (Status post left total knee replacement revision of distal femur with distal femoral replacing hinge on 11/30/2024.) History of present illness: The patient is a 69-year-old female with a medical history significant for multiple medical problems including coronary artery disease, history of stroke, type II diabetes and severe osteopenia who presented yesterday to our office with her for postoperative evaluation of her left leg. She is status post left total knee replacement revision for treatment of distal femur with distal femoral replacing hinge and complex removal of prosthesis of the left knee on 11/30/24. The patient reports she was discharged home from [facility] and not sent to rehab following discharge as recommended. The patient states she has had an increase in her pain since hospital discharge and in fact she feels her pain is worse now than before surgery. She has been experiencing swelling of her left leg as well as weakness, and she describes difficulty getting around. She has been taking Norman for pain which does not seem to be helping. The patient was sent from our office to the Emergency Department at [facility] for admission and arrangements for skilled rehab. She is status post injury fall when she was walking when her knees gave out on 11/29/24. This morning, the patient states she is still very weak. Her pain is controlled at this time. Review of Systems Constitutional: Reports fatigue, Reports weakness, Denies chills, Denies fever Cardiovascular: Denies chest pain, Denies shortness of breath Respiratory: Denies cough Gastrointestinal: Denies diarrhea, Denies nausea, Denies vomiting Past Medical History Past Medical History: CVA/TIA, Diabetes Mellitus, Hyperlipidemia, Hypertension, Osteoarthritis (OA), Skin Disorder, Sleep Apnea/CPAP/BIPAP, Thyroid Disorder Additional Past Medical History / Comment(s): MIGRAINES, spinal stenosis, q uestionable tia,borderline diabetic. AUTO IMMUNE SKIN RASH ON ARMS AND UPPER CHEST History of Any Multi-Drug Resistant Organisms: None Reported Past Surgical History: Bariatric Surgery, Breast Surgery, Section, Cholecystectomy, Joint Replacement, Orthopedic Surgery Additional Past Surgical History / Comment(s): GASTRIC BYPASS, PAIN INJECTIONS, EXCESS SKIN REMOVED FROM ABDOMEN AND ARMS, NANCY knee replacement, BILATERAL CATARACT SURGERY. breast firbroids removed x2 Past Anesthesia/Blood Transfusion Reactions: No Reported Reaction, Motion Sickness Additional Past Anesthesia/Blood Transfusion Reaction / Comm: "sea sick once" No blood transfusion Past Psychological History: Anxiety, Depression Smoking Status: Former smoker Past Alcohol Use History: None Reported Additional Past Alcohol Use History / Comment(s): STARTED SMOKING AT AGE 9, QUIT AT AGE 32, SMOKED 2PPD Past Drug Use History: None Reported - Past Family History Mother Family Medical History: Cancer Medications and Allergies Home Medications Medication Instructions Recorded Confirmed Type ALPRAZolam [Xanax] 0.5 mg PO DAILY PRN 10/15/19 12/11/24 History FLUoxetine HCL 40 mg PO DAILY 05/10/22 12/11/24 History Omeprazole 40 mg PO BID 05/10/22 12/11/24 History buPROPion HCL [buPROPion HCL XL] 150 mg PO BID 05/10/22 12/11/24 History Fexofenadine/Pseudoephedrine 1 tab PO DAILY 11/30/24 12/11/24 History [Nazia-D 24 Hour Tablet] Gabapentin [Neurontin] 400 mg PO QID 11/30/24 12/11/24 History Ipratropium-Albuterol Nebulize 3 ml INHALATION RT-QID 11/30/24 12/11/24 History [Duoneb 0.5 mg-3 mg/3 ml Soln] Levothyroxine Sodium [Synthroid] 125 mcg PO DAILY 11/30/24 12/11/24 History atenoloL [Tenormin] 50 mg PO BID 11/30/24 12/11/24 History Apixaban [Eliquis] 2.5 mg PO BID #60 tab 12/06/24 12/11/24 Rx Docusate [Colace] 100 mg PO BID #60 capsule 12/06/24 12/11/24 Rx Doxycycline Monohydrate 100 mg PO BID #84 cap 12/06/24 12/11/24 Rx HYDROcodone/APAP 5-325MG [[place] 1 - 2 tab PO Q6HR PRN #56 tab 12/06/24 12/11/24 Rx 5-325] Omeprazole [PriLOSEC] 40 mg PO DAILY #30 cap 12/06/24 12/11/24 Rx Ondansetron [Zofran] 4 mg PO Q8HR PRN #20 tab 12/06/24 12/11/24 Rx Ferrous Sulfate [Iron (65 MG 325 mg PO W/LUNCH #30 tab 12/08/24 12/11/24 Rx Elemental)] Sodium Chloride Tab 1 gm PO BID #60 tab 12/08/24 12/11/24 Rx Multivitamins, Thera [Multivitamin 1 tab PO DAILY@1200 12/11/24 12/11/24 History (formulary)] amLODIPine [Norvasc] 5 mg PO DAILY 12/11/24 12/11/24 History Allergies Allergy/AdvReac Type Severity Reaction Status Date / Time dulaglutide [From [facility]] Allergy NAUSEA,VOMITING Verified 12/11/24 10:51 SWELLING OF LYPMPHNODE, HEADACHE Penicillins Allergy Rash/Hives Verified 12/11/24 10:51 Physical Examination On inspection of the left lower extremity, there is a wound vac in place with good seal. There is diffuse swelling in the left lower extremity. There is ecchymosis about the lateral aspect of the left knee. Her thigh is soft and compressible. Her left leg is warm and well perfused. She can plantar flex and dorsiflex her ankle. Results X-rays taken in our office on 12/11/2024 reveals stable appearing distal femoral replacement with cemented stems in the femur and tibia. No acute fractures seen. - Labs Labs: Abnormal Lab Results - Last 24 Hours (Table) 12/11/24 12/11/24 12/11/24 Range/Units 10:12 10:12 21:11 RBC 3.27 L (3.80-5.40) m/uL Hgb 9.7 L (11.4-16.0) gm/dL Hct 29.1 L (34.0-46.0) % RDW 16.0 H (11.5-15.5) % Lymphocytes # 0.6 L (1.0-4.8) k/uL Sodium 129 L (137-145) mmol/L Chloride 97 L (98-107) mmol/L POC Glucose (mg/dL) 124 H (70-110) mg/dL Total Protein 6.0 L (6.3-8.2) g/dL Albumin 3.2 L (3.5-5.0) g/dL H & H 12/11/24 Range/Units 10:12 Hgb 9.7 L (11.4-16.0) gm/dL Hct 29.1 L (34.0-46.0) % Result Diagrams: 12/11/24 10:12 12/11/24 10:12 Assessment and Plan (1) S/P left knee surgery Current Visit: Yes Status: Acute Code(s): Z98.890 - OTHER SPECIFIED POSTPROCEDURAL STATES SNOMED Code(s): 351280381 (2) Fall Current Visit: No Status: Acute Code(s): W19.XXXA - UNSPECIFIED FALL, INITIAL ENCOUNTER SNOMED Code(s): 0665846 (3) Periprosthetic fracture of knee Current Visit: No Status: Acute Code(s): M97.9XXA - PERIPROSTH FRACTURE AROUND UNSP INTERNAL PROSTH JOINT, INIT SNOMED Code(s): 578712407 Plan: 1. Continue pain control 2. Anticoagulation with Eliquis 3. Continue incisional wound vac on 12/18/2024. 4. Continue physical therapy and ambulation, weightbearing as tolerated with a walker. 5. Anticipate discharge to skilled rehab when arrangements are made. We will continue to follow closely.
--- NOTE | 2024-12-13 08:08 | P.PN ---
Subjective Progress Note Date: 12/13/24 Principal diagnosis: Status post left total knee replacement revision with distal femoral replacing hinge on 11/30/2024. The patient is a 69-year-old female with a medical history significant for multiple medical problems including coronary artery disease, history of stroke, type II diabetes and severe osteopenia who presented yesterday to our office with her for postoperative evaluation of her left leg. She is status post left total knee replacement revision for treatment of distal femur with distal femoral replacing hinge and complex removal of prosthesis of the left knee on 11/30/24. The patient reports she was discharged home from [facility] and not sent to rehab following discharge as recommended. The patient states she has had an increase in her pain since hospital discharge and in fact she feels her pain is worse now than before surgery. She has been experiencing swelling of her left leg as well as weakness, and she describes difficulty getting around. She has been taking Manito for pain which does not seem to be helping. The patient was sent from our office to the Emergency Department at [facility] for admission and arrangements for skilled rehab. She is status post injury fall when she was walking when her knees gave out on 11/29/24. This morning, the patient states her pain is much better controlled and she is moving around better. She did not qualify for skilled rehab and will be returning home with homecare upon discharge. No new complaints this morning. Objective - Vital Signs Vital signs: Vital Signs Temp 98.7 F 12/13/24 02:00 Pulse 89 12/12/24 20:56 Resp 16 12/12/24 12:22 BP 159/84 12/13/24 02:00 Pulse Ox 97 12/13/24 02:00 FiO2 Intake & Output 12/12/24 12/13/24 12/13/24 18:59 06:59 18:59 Intake Total 900 Balance 900 Intake: Intake, IV Titration 900 Amount Sodium Chloride 0.9% 1, 900 000 ml @ 75 mls/hr IV . [id number] [facility] Rx#:[id number] Other: Voiding Method Toilet Toilet # Voids 1 2 - Exam On inspection of the left lower extremity, there is a wound vac in place with good seal. There is diffuse swelling in the left lower extremity. There is ecchymosis about the lateral aspect of the left knee. Her thigh is soft and compressible. Her left leg is warm and well perfused. She can plantar flex and dorsiflex her ankle. - Labs CBC & Chem 7: 12/11/24 10:12 12/11/24 10:12 Assessment and Plan (1) S/P left knee surgery Current Visit: Yes Status: Acute Code(s): Z98.890 - OTHER SPECIFIED POSTPROCEDURAL STATES SNOMED Code(s): 212779780 (2) Fall Current Visit: No Status: Acute Code(s): W19.XXXA - UNSPECIFIED FALL, INITIAL ENCOUNTER SNOMED Code(s): 4616310 (3) Periprosthetic fracture of knee Current Visit: No Status: Acute Code(s): M97.9XXA - PERIPROSTH FRACTURE AROUND UNSP INTERNAL PROSTH JOINT, INIT SNOMED Code(s): 578561208 Plan: 1. Continue pain control 2. Anticoagulation with Eliquis 3. Continue incisional wound vac on 12/18/2024. 4. Continue physical therapy and ambulation, weightbearing as tolerated with a walker. 5. Anticipate discharge to home with homecare in the next 1-2 days. We will continue to follow closely.
[2024-12-14 04:09] LABS: ALT 12 U/L (4-34); AST 41 U/L (14-36); African American GFR (CKD) >90 (>60 ml/min/1.73 sqM); Albumin 2.6 g/dL (3.5-5.0); Alkaline Phosphatase 49 U/L (38-126); Anion Gap 6 mmol/L; Blood Urea Nitrogen 9 mg/dL (7-17); Calcium 8.8 mg/dL (8.4-10.2); Carbon Dioxide 21 mmol/L (22-30); Chloride 98 mmol/L (98-107); Globulin 2.6 g/dL; Glucose 106 mg/dL (74-99); Non-African American GFR(CKD) >90 (>60 ml/min/1.73 sqM); Potassium 4.5 mmol/L (3.5-5.1); Sodium 125 mmol/L (137-145); Total Bilirubin 1.6 mg/dL (0.2-1.3); Total Protein 5.2 g/dL (6.3-8.2)
[2024-12-14 04:55] LABS: Anisocytosis Slight; Basophils # (A) 0.1 k/uL (0-0.2); Basophils % (A) 1 %; Eosinophils # (A) 0.4 k/uL (0-0.7); Eosinophils % (A) 6 %; HGB 8.6 gm/dL (11.4-16.0); Hypochromasia Marked; Lymphocytes % (A) 15 %; MCH 30.3 pg (25.0-35.0); MCHC 31.8 g/dL (31.0-37.0); Macrocytosis Slight; Mean Platelet Volume 7.3; Monocytes # (A) 0.7 k/uL (0-1.0); Monocytes % (A) 11 %; Neutrophils # (A) 3.9 k/uL (1.3-7.7); Neutrophils % (A) 63 %; Platelet Count 230 k/uL (150-450); RBC 2.83 m/uL (3.80-5.40); RDW 17.3 % (11.5-15.5); WBC 6.3 k/uL (3.8-10.6)
[2024-12-14 04:56] LABS: MCV 95.3 fL (80.0-100.0)
--- NOTE | 2024-12-14 07:51 | PN ---
PROGRESS NOTE MEDICATIONS: Remains on her home medications 1. Synthroid. 2. Tenormin 50 b.i.d. for hypertension. 3. Eliquis 2.5 DVT prophylaxis. 4. Norvasc 5 mg daily. 5. Xanax 0.5 daily. 6. DuoNeb t.i.d. 7. Protonix 40 a.c. b.i.d. PHYSICAL EXAMINATION: VITAL SIGNS: Temp 98.1, blood pressure 133/85, O2 sat 95 on room air. CARDIOVASCULAR: S1, S2. LUNGS: Transmitted upper sounds. GI: Soft. HEMATOLOGY: Negative Homans. Labs are reviewed. Sodium is a little bit low. We will check electrolytes today to make sure electrolytes are better and the patient can possibly be discharged as she appears to be stable from medical standpoint. PROGNOSIS: Guarded. Ambulate as tolerated. Follow up as an outpatient. MMODL / CHRISTINEN: [id number] /
--- NOTE | 2024-12-14 08:09 | PN ---
PROGRESS NOTE SUBJECTIVE: 69-year-old female came in with hyponatremia, weakness. physical therapy. She had no pain medicines at home because she could not do it. She needs pain medicines and she says she can go home. OBJECTIVE: CARDIOVASCULAR: S1, S2. LUNGS: Transmitted upper sounds. HEMATOLOGY: Negative Homans. PSYCH: Fair mood and affect. ASSESSMENT: Hyponatremia, generalized weakness, status post fracture care. Continue with current home medications. She is improving. Possible discharge home with home PT/OT in the next 24 to 48 hours. Thanks for the consult from Orthopedics. She is doing much better over the last day or two. MMODL / IJN: [id number] /
--- NOTE | 2024-12-14 08:10 | P.PN ---
Subjective Progress Note Date: 12/14/24 Principal diagnosis: Status post left total knee replacement revision with distal femoral replacing hinge on 11/30/2024. The patient is a 69-year-old female with a medical history significant for multiple medical problems including coronary artery disease, history of stroke, type II diabetes and severe osteopenia who presented yesterday to our office with her for postoperative evaluation of her left leg. She is status post left total knee replacement revision for treatment of distal femur with distal femoral replacing hinge and complex removal of prosthesis of the left knee on 11/30/24. The patient reports she was discharged home from [facility] and not sent to rehab following discharge as recommended. The patient states she has had an increase in her pain since hospital discharge and in fact she feels her pain is worse now than before surgery. She has been experiencing swelling of her left leg as well as weakness, and she describes difficulty getting around. She has been taking Roscoe for pain which does not seem to be helping. The patient was sent from our office to the Emergency Department at [facility] for admission and arrangements for skilled rehab. She is status post injury fall when she was walking when her knees gave out on 11/29/24. This morning, the patient states her pain is much better controlled and she is moving around better. She did not qualify for skilled rehab and will be returning home with homecare upon discharge. No new complaints this morning. Her sodium is 125 this morning. Objective - Vital Signs Vital signs: Vital Signs Temp 98.0 F 12/14/24 06:58 Pulse 70 12/14/24 06:58 Resp 15 12/14/24 06:58 BP 122/74 12/14/24 06:58 Pulse Ox 96 12/14/24 06:58 FiO2 Intake & Output 12/13/24 12/14/24 12/14/24 18:59 06:59 18:59 Other: Voiding Method Toilet Toilet # Voids 2 - Exam On inspection of the left lower extremity, there is a wound vac in place with go od seal. There is diffuse swelling in the left lower extremity. There is ecchymosis about the lateral aspect of the left knee. Her thigh is soft and compressible. Her left leg is warm and well perfused. She can plantar flex and dorsiflex her ankle. - Labs CBC & Chem 7: 12/14/24 03:24 12/14/24 03:24 Labs: Abnormal Lab Results - Last 24 Hours (Table) 12/14/24 12/14/24 Range/Units 03:24 03:24 RBC 2.83 L (3.80-5.40) m/uL Hgb 8.6 L (11.4-16.0) gm/dL Hct 27.0 L (34.0-46.0) % RDW 17.3 H (11.5-15.5) % Sodium 125 L (137-145) mmol/L Carbon Dioxide 21 L (22-30) mmol/L Glucose 106 H (74-99) mg/dL Total Bilirubin 1.6 H (0.2-1.3) mg/dL AST 41 H (14-36) U/L Total Protein 5.2 L (6.3-8.2) g/dL Albumin 2.6 L (3.5-5.0) g/dL Assessment and Plan (1) S/P left knee surgery Current Visit: Yes Status: Acute Code(s): Z98.890 - OTHER SPECIFIED POSTPROCEDURAL STATES SNOMED Code(s): 088498203 (2) Fall Current Visit: No Status: Acute Code(s): W19.XXXA - UNSPECIFIED FALL, INITIAL ENCOUNTER SNOMED Code(s): 6697078 (3) Periprosthetic fracture of knee Current Visit: No Status: Acute Code(s): M97.9XXA - PERIPROSTH FRACTURE AROUND UNSP INTERNAL PROSTH JOINT, INIT SNOMED Code(s): 436625293 Plan: 1. Continue pain control 2. Anticoagulation with Eliquis 3. Continue incisional wound vac on 12/18/2024. 4. Continue physical therapy and ambulation, weightbearing as tolerated with a walker. 5. Anticipate discharge to home with homecare when medically stable and sodium is improved. We will continue to follow closely.
[2024-12-14 14:01] VITALS: BP 91/57; PULSE 88; RESP 16; TEMP 98.2
--- NOTE | 2024-12-15 04:27 | DS ---
DISCHARGE SUMMARY HOSPITAL COURSE: A 69-year-old white female, admitted with failure to thrive, status post surgery on her left leg for hip fracture. She says she could not get physical therapy. She had no pain medicines at home. She is unable to ambulate because she has severe pain. She has coronary artery disease, history of diabetes, osteopenia, status post left total knee replacement revision distal hinge and complex removal of prosthesis of the left knee. She is going to go home with pain medicines today. She is medically stable, sitting up in bed, giving appropriate answers. PHYSICAL EXAMINATION: CARDIOVASCULAR: S1, S2. LUNGS: Clear. GI: Soft. HEMATOLOGY: Negative Homans. PSYCH: Fair mood and affect. HEENT: Pupils equal, round, reactive. Status post left knee surgery replacement, generalized weakness. Wound VAC on the left leg periprosthetic fracture of the knee. She will be discharged home. Follow up as an outpatient. Hemoglobin is stable at 9.7. Vital signs are stable. She uses a walker 24 hours a day come see her. MMODL / IJN: [id number] /
== END 2024-12-14 15:56 | disposition home or self-care (01) ==
LOC: EC 09:34 → 4SSUR 10:58
PROVIDERS: ADMIT Family Medicine; ATTEND Family Medicine
DX: M97.12XA Periprosthetic fracture around internal prosthetic left knee joint, initial encounter (principal); R62.7 Adult failure to thrive; E87.1 Hypo-osmolality and hyponatremia; E11.9 Type 2 diabetes mellitus without complications; E78.5 Hyperlipidemia, unspecified; I10 Essential (primary) hypertension; G47.30 Sleep apnea, unspecified; F32.A Depression, unspecified; F41.9 Anxiety disorder, unspecified; I25.10 Atherosclerotic heart disease of native coronary artery without angina pectoris; Z86.73 Personal history of transient ischemic attack (TIA), and cerebral infarction without residual deficits; Z87.891 Personal history of nicotine dependence; Z98.890 Other specified postprocedural states; Z79.01 Long term (current) use of anticoagulants; Z79.890 Hormone replacement therapy; Z79.899 Other long term (current) drug therapy; Z88.0 Allergy status to penicillin; W19.XXXA Unspecified fall, initial encounter
CPT/HCPCS: 96376 ×5; 96374 ×2; 99285; 36415; 94640 ×7; 97116; 97161; 97166; 80053 ×2; 85025 ×2; G0378 ×4; J1171 ×6

== ENCOUNTER → 2025-03-26 | Outpatient (CLI) | payer MEDICARE, BC ==
[2025-03-26 11:28] VITALS: BP 125/55; PULSE 55; RESP 19; TEMP 95.9
--- NOTE | 2025-03-26 14:52 | P.PAINPG ---
Objective - Vital Signs Vital signs: Intake & Output 03/25/25 03/26/25 03/26/25 18:59 06:59 18:59 Weight 74.843 kg PQRS Measure Charge Sheet Mode of Arrival: Walker Comment: A 69 yr old female with a history of severe and chronic LBP secondary to radiculopathy, spondylosis and facet arthropathy without myelopathy presents today for evaluations/p SKIP L4-L5 #1. Pt states she experienced 50% pain relief x 3 mo s/p procedure. Pain level is currently at 8 /10 in intensity, constant,predominantly axial, localized in the R lower lumbar spine, achy in character w occasional shooting towards the RLE. Pain is provoked by lifting and overhead reaching, vacuuming. Pain is alleviated with PT integrated w massage x 6 wks in 2019 but ineffective due to spinal stenosis, ultrasound while in PT, physician guided exercises and stretches daily since Nov 2023, heat, medications, use of a cane for ambulatory assistance, CBD topicals, repositioning and rest. States Downey from Dr Andrade is ineffective and willing to discontinue. Interventional pain procedures completed include BL SI x2, LESI L4-L5 x3 (06/10, 06/11), C6-C7 x1 Patient is currently on Downey, Neurontin from Dr Andrade Patient denies any side effects of the medication(s), denies excessive drowsiness or sleepiness, denies suicidal ideation and reports that the current pain medication is helping to control the pain and improve activities of daily living. Patient denies any motor or sensory deficits. Patient denies any fever or night sweats, denies any change in the bowel movements or urination. Physical Examination: -Constitutional: Cooperative. Not in acute distress . - Neurologic: Cranial nerve II to XII intact. No focal neurological deficits. - Psychatric: Alert & oriented x 3. Matching mood & appropriate affect. Judgment and insight intact. - Musculoskeletal: Cervical spine: Muscle bulk/ tone/ strength in the bilateral upper extremities normal Vertebral body tenderness to palpation Spurling test positive Distraction test positive Facet loading test positive Thoracic spine Muscle bulk / tone/ strength in the bilateral paraspinal muscles normal Vertebral body tender to palpation over Facet loading test positive Lumbar spine: Motor bulk/ tone/ strength lower extremities , thigh and legs : 5/5 Deep tendon reflexes : Normal Knee Jerk. Normal Ankle Jerk . Vertebral body tenderness to palpation over L4 Lumbar Facet Loading Test positive Straight Leg Raise: positive at 30 degrees right side> left side Gaenslen's Test positive Sacral spine : Severe tenderness over the Sacroiliac joint: right side / left side Range of motion: Flexion of the lumbar spine <60 degrees Range of motion: Extension of the lumbar spine <20 degrees Gaenslen's Test positive De's Test positive Augusta test: positive right side / left side Thigh Thrust Test Sacral Thrust Test Imaging: MRI without contrast of the cervical spine 09/13/22 reviewed Lumbar xray from 2021 reviewed MRI non contrast of the lumbar spine from 04/09/24 reviewed Assessment and plan: Chronic LBP secondary to radiculopathy, spondylosis with facet arthropathy without myelopathy Recommendation of BL TFESI L4-L5 #1 and medication management. Percocet 5/325mg #90 with 1 RF. Discontinue [address] from Dr Andrade. Opiate/narcotic agreement signed 03/26/2025. Risks, benefits of procedure discussed and pt verbalized understanding. After discontinuation/continuation of medication surrounding procedure discussed. All patient questions answered I have spent less than 30 minutes on patient care today. Dr Diaz was available by phone for the evaluation of this patient. The time was used to review the medical records including relevant urine studies and Prescription history (MAPs), review of the available imaging, evaluation and examination of the patient, coordination of care with the medical staff and if applicable referring physicians, as well as creation of the medical record - Pain Location Lower Back Pharmacological Interventions: PRN Medication PQRS Narrative: Smoking Status Former smoker Pain Intensity [Lower Back] 6 Scale Used Numeric (1 - 10) Hx Alcohol Use (MH) Yes: RARE Home Medications: Ambulatory Orders ALPRAZolam [Xanax] 0.5 mg PO DAILY PRN 10/15/19 FLUoxetine HCL 40 mg PO DAILY 05/10/22 Omeprazole 40 mg PO BID 05/10/22 buPROPion HCL [buPROPion HCL XL] 150 mg PO BID 05/10/22 Fexofenadine/Pseudoephedrine [Nazia-D 24 Hour Tablet] 1 tab PO DAILY 11/30/24 Gabapentin [Neurontin] 400 mg PO QID 11/30/24 Ipratropium-Albuterol Nebulize [Duoneb 0.5 mg-3 mg/3 ml Soln] 3 ml INHALATION RT-QID 11/30/24 Levothyroxine Sodium [Synthroid] 125 mcg PO DAILY 11/30/24 atenoloL [Tenormin] 50 mg PO BID 11/30/24 Apixaban [Eliquis] 2.5 mg PO BID #60 tab 12/06/24 Docusate [Colace] 100 mg PO BID #60 capsule 12/06/24 Doxycycline Monohydrate 100 mg PO BID #84 cap 12/06/24 Ondansetron [Zofran] 4 mg PO Q8HR PRN #20 tab 12/06/24 Ferrous Sulfate [Iron (65 MG Elemental)] 325 mg PO W/LUNCH #30 tab 12/08/24 Sodium Chloride Tab 1 gm PO BID #60 tab 12/08/24 Multivitamins, Thera [Multivitamin (formulary)] 1 tab PO DAILY@1200 12/11/24 amLODIPine [Norvasc] 5 mg PO DAILY 12/11/24 oxyCODONE-APAP 5-325MG [Percocet 5-325 mg] 1 tab PO TID PRN 30 Days #90 tab 03/26/25 oxyCODONE-APAP 5-325MG [Percocet 5-325 mg] 1 tab PO TID PRN 30 Days #90 tab 03/26/25 Controlled Substance Measures - Controlled Substance Measures Is patient prescribed a controlled substance at discharge?: Yes When asked, does pt state using other controlled substances?: Yes If prescribed controlled substance>3 days was MAPS reviewed?: Yes If Rx opioid, was Start Talking consent form obtained?: Yes Was information provided regarding opioid addiction?: Yes
== END ==
LOC: PNWHC3 10:18
PROVIDERS: ATTEND Specialist
DX: M47.26 Other spondylosis with radiculopathy, lumbar region (principal); Z88.0 Allergy status to penicillin; Z88.8 Allergy status to other drugs, medicaments and biological substances; Z87.891 Personal history of nicotine dependence
CPT/HCPCS: 99211

== ENCOUNTER → 2025-05-25 | Outpatient (CLI) | payer MEDICARE, BC ==
[2025-05-25 11:14] VITALS: BP 150/91; PULSE 54; RESP 20
--- NOTE | 2025-05-25 14:38 | P.PAINPG ---
PQRS Measure Charge Sheet Comment: A 69 yr old female with a history of severe and chronic LBP secondary to radiculopathy, spondylosis and facet arthropathy without myelopathy presents today for evaluation s/p BL TFESI L4-L5 #1. Pt states she experienced 0% pain relief x 5 wks s/p procedure. Pain level is currently at 8 /10 in intensity, con stant,predominantly axial, localized in the lumbar spine, achy in character without shooting pain. Pain is provoked by standing for periods > 5 min. Pain is alleviated with PT integrated w massage x 6 wks in 2019 but ineffective due to spinal stenosis, ultrasound while in PT, physician guided exercises and stretches daily since Nov 2023, heat, medications, use of a cane for ambulatory assistance, CBD topicals, repositioning and rest. Interventional pain procedures completed include BL SI x2, LESI L4-L5 x3 (06/10, 06/11), C6-C7 x1, BL TFESI L4-L5 x1 (04/12) Patient is currently on Percocet 7.5/325mg #90, Neurontin from Dr Andrade Patient denies any side effects of the medication(s), denies excessive drowsiness or sleepiness, denies suicidal ideation and reports that the current pain medication is helping to control the pain and improve activities of daily living. Patient denies any motor or sensory deficits. Patient denies any fever or night sweats, denies any change in the bowel movements or urination. Physical Examination: -Constitutional: Cooperative. Not in acute distress . - Neurologic: Cranial nerve II to XII intact. No focal neurological deficits. - Psychatric: Alert & oriented x 3. Matching mood & appropriate affect. Judgment and insight intact. - Musculoskeletal: Cervical spine: Muscle bulk/ tone/ strength in the bilateral upper extremities normal Vertebral body tenderness to palpation Spurling test positive Distraction test positive Facet loading test positive Thoracic spine Muscle bulk / tone/ strength in the bilateral paraspinal muscles normal Vertebral body tender to palpation over Facet loading test positive Lumbar spine: Motor bulk/ tone/ strength lower extremities , thigh and legs : 5/5 Deep tendon reflexes : Normal Knee Jerk. Normal Ankle Jerk . Vertebral body tenderness to palpation over L4 Lumbar Facet Loading Test positive BL L4-L5, L5-S1 Straight Leg Raise: positive at 30 degrees right side> left side Gaenslen's Test positive Sacral spine : Severe tenderness over the Sacroiliac joint: right side / left side Range of motion: Flexion of the lumbar spine <60 degrees Range of motion: Extension of the lumbar spine <20 degrees Gaenslen's Test positive De's Test positive Augusta test: positive right side / left side Thigh Thrust Test Sacral Thrust Test Imaging: MRI without contrast of the cervical spine 09/13/22 reviewed Lumbar xray from 2021 reviewed MRI non contrast of the lumbar spine from 04/09/24 reviewed Assessment and plan: Chronic LBP secondary to radiculopathy, spondylosis with facet arthropathy without myelopathy Recommendation of medication management and BL MBB L4-L5, L5-S1 #1. Risks, benefits of procedure discussed and pt verbalized understanidng. Minimal anesthesia including Fentanyl and Versed if clinically indicated. Blood tox screen provided per pt request 05/25/25. Informed pt she MUST complete drug screen today for medical refill. Percocet 7.5/325mg #90 with 1 RF. UDS 05/25/25. Opiate/narcotic agreement signed 03/26/2025. Protocol for discontinuation/continuation of medication surrounding procedure discussed. Risks, benefits of procedure discussed and pt verbalized understanding. All patient questions answered I have spent less than 30 minutes on patient care today. Dr Diaz was available by phone for the evaluation of this patient. The time was used to review the medical records including relevant urine studies and Prescription history (MAPs), review of the available imaging, evaluation and examination of the patient, coordination of care with the medical staff and if applicable referring physicians, as well as creation of the medical record - Pain Location Lower Back Non-Pharmacological Interventions: Heat Pharmacological Interventions: Medication PQRS Narrative: Smoking Status Former smoker Hx Alcohol Use (MH) Yes: RARE Home Medications: Ambulatory Orders ALPRAZolam [Xanax] 0.5 mg PO DAILY PRN 10/15/19 FLUoxetine HCL 40 mg PO DAILY 05/10/22 Omeprazole 40 mg PO BID 05/10/22 buPROPion HCL [buPROPion HCL XL] 150 mg PO BID 05/10/22 Fexofenadine/Pseudoephedrine [Nazia-D 24 Hour Tablet] 1 tab PO DAILY 11/30/24 Gabapentin [Neurontin] 400 mg PO QID 11/30/24 Ipratropium-Albuterol Nebulize [Duoneb 0.5 mg-3 mg/3 ml Soln] 3 ml INHALATION RT-QID 11/30/24 Levothyroxine Sodium [Synthroid] 125 mcg PO DAILY 11/30/24 atenoloL [Tenormin] 50 mg PO BID 11/30/24 Ondansetron [Zofran] 4 mg PO Q8HR PRN #20 tab 12/06/24 Ferrous Sulfate [Iron (65 MG Elemental)] 325 mg PO W/LUNCH #30 tab 12/08/24 amLODIPine [Norvasc] 5 mg PO DAILY 12/11/24 oxyCODONE HCL/ACETAMINOPHEN [Percocet 7.5-325 mg Tablet] 1 each PO TID PRN 30 Days #90 tab 05/25/25 oxyCODONE HCL/ACETAMINOPHEN [Percocet 7.5-325 mg] 1 tab PO TID PRN 30 Days #90 tab 05/25/25 Controlled Substance Measures - Controlled Substance Measures Is patient prescribed a controlled substance at discharge?: Yes When asked, does pt state using other controlled substances?: No If prescribed controlled substance>3 days was MAPS reviewed?: Yes
[2025-05-26 10:42] LABS: Serum Amphetamine Negative; Serum Barbiturates Negative; Serum Benzodiazepine Negative; Serum Cocaine Negative; Serum Methadone Negative; Serum Opiates Negative; Serum Phencyclidine Negative; Serum Propoxyphene Negative; Serum THC (Cannabis) Negative
== END ==
LOC: PNWHC3 10:51
PROVIDERS: ATTEND Specialist
DX: Z02.83 Encounter for blood-alcohol and blood-drug test (principal); M47.26 Other spondylosis with radiculopathy, lumbar region; Z88.0 Allergy status to penicillin; Z88.8 Allergy status to other drugs, medicaments and biological substances; Z87.891 Personal history of nicotine dependence
CPT/HCPCS: 80307; G0463; 99212